=== PATIENT | male | born 1965 | race Caucasian/White ===

== ENCOUNTER 2022-06-29 13:27 | Outpatient (CLI) | payer OTHER ==
[2022-06-29 21:13] VITALS: BP 140/98
--- NOTE | 2022-06-29 21:13 | SLEEP CARE CONSULTATION ---
Information from patient questionnaire entered by Maddi Louise LPN. I have reviewed and concur with the information entered by Maddi Louise LPN. This document represents the service I personally performed and the decisions made by me, Karyn Renteria MD, [facility]. History of Present Illness Service Date and Time: 06/29/2022 1327 Reason for Visit: New patient Chief Complaint: reports: Excessive daytime sleepiness, Fatigue, Other (UPDATE SUPPLIES) Date of Onset: 4 YRS Usual bedtime: 9PM Time it takes to fall asleep: 10-15MINS Snores at night: Yes Observed to quit breathing while asleep: No Sleeps alone due to snoring: Yes Number of times waking at night: 4-5 TIMES Reasons for waking at night: reports: Pain, Bathroom Toss, Turn, or Twitch while sleeping: Yes Recalls having dreams: No Usually gets out of bed at: 6AM Feels refreshed in the morning: No Sleepy or fatigued during the day: Yes Ever fallen asleep while driving: No Takes day naps: Yes Dreams during day naps: No Prior sleep studies: Yes Year and Where: 2016 [facility] [place] Additional HPI information: I had the pleasure of seeing Mr. Thakkar today regarding obstructive sleep apnea- hypopnea. As you know, he is a 57-year-old gentleman who was diagnosed with the sleep-disordered breathing in 2016 at [facility] in [place]. The report is not available. He was prescribed a CPAP device set at 7 14 cmH2O. The [employer]rias Respironics DreamStation autoCPAP came from [facility], but he has been buying supplies online the last few years. He uses every night and all night. He wears a Respironics Amaraview. He finds the treatment very beneficial. - Parasomnia Symptoms Ever been unable to move upon waking from sleep: No Walks in sleep: No Talks in sleep: No Ever acted out dreams in sleep: No Ever felt weak in the knees when startled or emotional: No Bothered by creepy, crawly, restless sensations in legs: No Problems with memory or concentration: Yes CPAP Compliance Data - Data Reviewed with Patient Average duration of nightly device use: 7hrs 57mins Compliance rate %: 88.3 Current pressure setting (cmH2O): 7-14 Average residual AHI: 4.2 Subjective Initial [place] Sleepiness Scale score: 11 (2-28-23) Past Medical History Past Medical History: reports: Hypertension, Claustrophobia, Arthritis, Asthma, GERD Social History The patient's occupation is a [employer]. Patient is and lives in [place]. Have you smoked in the past 12 months: No Alcohol use: Yes Alcohol amount and frequency: 1-3\WEEK SOCIALLY Caffeine use: Yes Caffeine amount and frequency: 4CUPS DAILY Family History Family history of sleep disordered breathing: Yes Family Hx Sleep Apnea: Mother: Snoring, Father: Snoring, Sleep apnea - Treated Allergies and Home Medications Known drug allergies: No Drug allergies reviewed: Yes Home medication list reviewed: Yes Review of Systems Weight gain over past 5 years: 20-30 Cardiovascular: reports: high blood pressure, irregular heart rate or pulse Gastrointestinal: reports: heartburn, diarrhea, abdominal pain Urinary: reports: frequency, urgency Neurological: reports: headaches, gait or balance problems Psychiatric: reports: anxiety, depression Ear/Nose/Throat: reports: tonsillectomy, wisdom teeth removed Endocrine: reports: sluggishness, increased urination Musculoskeletal: denies: joint pain, neck pain, back pain, joint swelling, muscle pain or cramping, mobility problems, other Immunologic: reports: allergies to food or environment Physical Exam Vital signs obtained and entered by: MADDI Wetzel LPN Blood Pressure: 140/98 Cuff size: wrist Heart Rate: 72 O2 Saturation: 98 Height: 6 ft 3 in Weight: 321 lb 12.8 oz Body Mass Index: 40.2 BMI Classification: Morbidly Obese Neck circumference: 18 Mood/affect: Normal HEENT: No craniofacial malformation Nostrils: patent to airflow Turbinates: normal Septum: midline Mouth and throat: narrow oropharynx Soft palate: long Hard palate: normal Uvula: normal Uvula visualization: 25% Mallampati Class III Tongue: normal in size Tonsils: absent bilaterally Chin and jaw: normal size and position Heart: regular rate and rhythm Lungs: clear bilaterally Extremities: no edema or clubbing Neurologic: intact Impression and Plan IMPRESSION: 1. Obstructive Sleep Apnea-Hypopnea Syndrome, as previously diagnosed. The severity is unknown at this time. Narrow oropharynx and obesity are common predisposing factors for obstructive sleep apnea-hypopnea syndrome. The current pressure setting appears effective and comfortable. His mask fits well but he may very well be able to get by with a nasal mask/pillows. Because the CPAP is now older than the useful life of 5 years, I will order the patient a new one and make it an autoCPAP set between 7 and 14 cmH2O. Plan: 1. Prescription made for a new autoCPAP, heated humidifier, and related supplies. 2. Return for follow up after one month of using the CPAP. 3. Try to lose weight. 4. Order a new in-laboratory polysomnography if his old sleep study report cannot be found. Prescriptions: Auto CPAP Follow up with Sleep Care in: 1-2 months Visit Type: In Office Time Spent with Patient (minutes): 15 Provider Statement: I spent 100% of the Face to Face Visit with the patient with greater than 50% spent counseling the patient and coordination of care.
== END 2022-06-29 13:28 | disposition home or self-care (01) ==
LOC: SC 13:27
PROVIDERS: ATTEND Internal Medicine Pulmonary Disease
DX: G47.33 Obstructive sleep apnea (adult) (pediatric) (principal); E66.01 Morbid (severe) obesity due to excess calories; Z68.41 Body mass index [BMI] 40.0-44.9, adult
CPT/HCPCS: 99202; 99212

== ENCOUNTER 2022-07-20 18:44 | Outpatient (CLI) | payer OTHER ==
--- NOTE | 2022-07-20 20:09 | Ultrasound Report ---
PROCEDURE: Testicle INDICATIONS: SCROTAL MASS TECHNIQUE: Real-time scanning was performed of the scrotum and testicles, with image documentation. Color and p ulse Doppler interrogation was performed of both testicles. COMPARISON: None. FINDINGS: Right: Testicle measures 5.2 x 2.7 x 3.6 cm and appears slightly heterogeneous in echotexture. No di screte testicular mass Epididymis is normal in overall size and morphology. There is a small hydroce le. No varicoceles. Overlying scrotal skin is normal in thickness. Left: Testicle measures 5.2 x 2.5 x 3.7 cm and appears heterogeneous in echotexture. There are 2 sma ll cysts within the left testicle measuring up to 0.8 x 0.5 cm and 0.4 x 0.4 cm, with thin septations demonstrated in the larger cyst. Epididymis is normal in overall size and morphology. There are 2 ep ididymal head cysts or spermatoceles, measuring up to 0.4 cm each. There is a small hydrocele. No jeremiah icoceles. Overlying scrotal skin is normal in thickness. Doppler: Color and pulse Doppler demonstrate normal and symmetric arterial flow in both testicles. IMPRESSION: 1. Small cysts demonstrated within the left testicle and epididymis. No discrete solid masses identif ied. 2. Small bilateral hydroceles. Reviewed by: Vinicio Rashid MD on 07/20/2022 8:07 PM PDT Approved by: Vinicio Rashid MD on 07/20/2022 8:07 PM PDT Station ID: [id number]
== END 2022-07-20 18:45 | disposition home or self-care (01) ==
LOC: DI 18:44
PROVIDERS: ATTEND Registered Nurse
DX: N44.2 Benign cyst of testis (principal); N50.3 Cyst of epididymis; N43.3 Hydrocele, unspecified

== ENCOUNTER 2022-08-15 12:06 | Emergency (ER) | payer OTHER ==
--- OUTSIDE RECORDS SUMMARY | 2022-08-15 12:46 | EXTERNAL MEDICAL SUMMARY RPT | Continuity of Care Document ---
:1965 Author Organization [facility] Address [address] [place] [address] Phone Care Team Providers Name Role Phone Unavailable Unavailable Unavailable Nicholas Malone Unavailable Unavailable Allergies and Intolerances date description facility type (no date) No Known Drug Allergies [facility] (unkn own) Encounters No information. Functional Status No information. Immunizations No information. Medications date description facility 2022-07-24 00:00 Methocarbamol [facility] 2022-08-06 00:00 Bicalutamide [facility] 2022-06-19 00:00 Levofloxacin [facility] 2022-07-23 00:00 Ciprofloxacin [facility] 2022-07-23 00:00 Gabapentin [facility] 2022-07-24 00:00 Hydrocodone-Acetaminophen [facility]ret[facility] chintan Problems date description facility 2022-06-22 13:46 [facility] (current) use of antibiotics [facility] 2022-07-16 00:00 Malignant neoplasm of [facility] 2022-07-22 08:48 Malignant neoplasm of 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 2022-07-24 00:00 Low back pain [facility] 2022-07-24 06:36 Malignant neoplasm of [facility] Procedures date description facility 2022-07-22 00:00 Radionuclide bone scan of whole body [facility] 2022-07-24 00:00 CT abdomen pelvis w con [facility] Results/Labs test date author facility value unit interpret ation Result panel 1 (unknown) (no date) (unknown) [facility]) Result panel 2 (unknown) (no date) (unknown) [facility]) Result panel 3 (unknown) (no date) (unknown) [facility]) Result panel 4 (unknown) (no date) (unknown[facility]) Result panel 5 (unknown) (no date) (unknown[facility]) Result panel 6 (unknown) (no date) (unknown[facility]) Result panel 7 (unknown) (no date) (unknown[facility]) Result panel 8 (unknown) (no date) (unknown[facility]) Result panel 9 (unknown) (no date) (unknown[facility]) Result panel 10 (unknown) (no date) (unknown[facility]) Result panel 11 (unknown) (no date) (unknown[facility]) Result panel 12 (unknown) (no date) (unknown[facility]) Result panel 13 (unknown) (no date) (unknown[facility]) Result panel 14 (unknown) (no date) (unknown[facility]) Result panel 15 (unknown) (no date) (unknown[facility]) Result panel 16 (unknown) (no date) (unknown[facility]) Result panel 17 (unknown) (no date) (unknown[facility]) Result panel 18 (unknown) (no date) (unknown[facility]) Result panel 19 (unknown) (no date) (unknown[facility]) Result panel 20 (unknown) (no date) (unknown[facility]) Result panel 21 (unknown) (no date) (unknown[facility]) Result panel 22 (unknown) (no date) (unknown[facility]) Result panel 23 (unknown) (no date) (unknown[facility]) Result panel 24 (unknown) (no date) (unknown[facility]) Result panel 25 (unknown) (no date) (unknown[facility]) Result panel 26 (unknown) (no date) (unknown[facility]) Result panel 27 (unknown) (no date) (unknown[facility]) Result panel 28 (unknown) (no date) (unknown[facility]) Result panel 29 (unknown) (no date) (unknown[facility]) Result panel 30 (unknown) (no date) (unknown[facility]) Result panel 31 (unknown) (no date) (unknown[facility]) Result panel 32 (unknown) (no date) (unknown[facility]) Result panel 33 (unknown) (no date) (unknown[facility]) Result panel 34 (unknown) (no date) (unknown[facility]) Result panel 35 (unknown) (no date) (unknown[facility]) Result panel 36 (unknown) (no date) (unknown[facility]) Result panel 37 (unknown) (no date) (unknown[facility]) Result panel 38 (unknown) (no date) (unknown[facility]) Result panel 39 (unknown) (no date) (unknown[facility]) Result panel 40 (unknown) (no date) (unknown[facility]) Result panel 41 (unknown) (no date) (unknown[facility]) Result panel 42 (unknown) (no date) (unknown[facility]) Result panel 43 (unknown) (no date) (unknown[facility]) Result panel 44 (unknown) (no date) (unknown[facility]) Result panel 45 (unknown) (no date) (unknown[facility]) Result panel 46 (unknown) (no date) (unknown[facility]) Result panel 47 (unknown) (no date) (unknown[facility]) Result panel 48 (unknown) (no date) (unknown[facility]) Result panel 49 (unknown) (no date) (unknown[facility]) Result panel 50 (unknown) (no date) (unknown[facility]) Result panel 51 (unknown) (no date) (unknown[facility]) Result panel 52 (unknown) (no date) (unknown[facility]) Result panel 53 (unknown) (no date) (unknown[facility]) Result panel 54 (unknown) (no date) (unknown[facility]) Result panel 55 (unknown) (no date) (unknown[facility]) Result panel 56 (unknown) (no date) (unknown[facility]) Result panel 57 (unknown) (no date) (unknown[facility]) Result panel 58 (unknown) (no date) (unknown[facility]) Result panel 59 (unknown) (no date) (unknown[facility]) Result panel 60 (unknown) (no date) (unknown[facility]) Result panel 61 (unknown) (no date) (unknown[facility]) Result panel 62 (unknown) (no date) (unknown[facility]) Result panel 63 (unknown) (no date) (unknown[facility]) Result panel 64 (unknown) (no date) (unknown[facility]) Result panel 65 (unknown) (no date) (unknown[facility]) Result panel 66 (unknown) (no date) (unknown[facility]) Result panel 67 (unknown) (no date) (unknown[facility]) Result panel 68 (unknown) (no date) (unknown[facility]) Result panel 69 (unknown) (no date) (unknown[facility]) Result panel 70 (unknown) (no date) (unknown[facility]) Result panel 71 (unknown) (no date) (unknown[facility]) Result panel 72 (unknown) (no date) (unknown[facility]) Result panel 73 (unknown) (no date) (unknown[facility]) Result panel 74 (unknown) (no date) (unknown[facility]) Result panel 75 (unknown) (no date) (unknown[facility]) Result panel 76 (unknown) (no date) (unknown[facility]) Result panel 77 (unknown) (no date) (unknown[facility]) Result panel 78 (unknown) (no date) (unknown[facility]) Result panel 79 (unknown) (no date) (unknown[facility]) Result panel 80 (unknown) (no date) (unknown[facility]) Result panel 81 (unknown) (no date) (unknown[facility]) Result panel 82 (unknown) (no date) (unknown[facility]) Result panel 83 (unknown) (no date) (unknown[facility]) Result panel 84 (unknown) (no date) (unknown[facility]) Result panel 85 (unknown) (no date) (unknown[facility]) Result panel 86 (unknown) (no date) (unknown[facility]) Result panel 87 (unknown) (no date) (unknown[facility]) Result panel 88 (unknown) (no date) (unknown[facility]) Result panel 89 (unknown) (no date) (unknown[facility]) Result panel 90 (unknown) (no date) (unknown[facility]) Result panel 91 (unknown) (no date) (unknown[facility]) Result panel 92 (unknown) (no date) (unknown[facility]) Result panel 93 (unknown) (no date) (unknown[facility]) Result panel 94 (unknown) (no date) (unknown[facility]) Result panel 95 (unknown) (no date) (unknown[facility]) Result panel 96 (unknown) (no date) (unknown[facility]) Result panel 97 (unknown) (no date) (unknown[facility]) Result panel 98 (unknown) (no date) (unknown[facility]) Result panel 99 (unknown) (no date) (unknown[facility]) Result panel 100 (unknown) (no date) (unknown[facility]) Result panel 101 (unknown) (no date) (unknown[facility]) Result panel 102 (unknown) (no date) (unknown[facility]) Result panel 103 (unknown) (no date) (unknown[facility]) Result panel 104 (unknown) (no date) (unknown[facility]) Result panel 105 (unknown) (no date) (unknown[facility]) Result panel 106 (unknown) (no date) (unknown[facility]) Result panel 107 (unknown) (no date) (unknown[facility]) Result panel 108 (unknown) (no date) (unknown[facility]) Result panel 109 (unknown) (no date) (unknown[facility]) Result panel 110 (unknown) (no date) (unknown[facility]) Result panel 111 (unknown) (no date) (unknown[facility]) Result panel 112 (unknown) (no date) (unknown[facility]) Result panel 113 (unknown) (no date) (unknown[facility]) Result panel 114 (unknown) (no date) (unknown[facility]) Result panel 115 (unknown) (no date) (unknown[facility]) Result panel 116 (unknown) (no date) (unknown[facility]) Result panel 117 (unknown) (no date) (unknown[facility]) Result panel 118 (unknown) (no date) (unknown[facility]) Result panel 119 (unknown) (no (unknown) (unknown) (no value) (units (unk nown) date) unknown) (unknown) (no (unknown) (unknown) 06/22/22 (units (unkno wn) date) unknown) (unknown) (no (unknown) (unknown) 56 y/o M (units (unkno wn) date) presents to unknown) clinic for TRUS/Bx (unknown) (no (unknown) (unknown) Abnormal (units (unkno wn) date) prostate by unknown) palpation (unknown) (no (unknown) (unknown) Active asthma (units ( unknown) date) unknown) (unknown) (no (unknown) (unknown) Age/Sex: 56 / M (units (unknown) date) Date of Service: unknown) (unknown) (no (unknown) (unknown) Allergies (units (unkn own) date) unknown) (unknown) (no (unknown) (unknown) [place], [place] (units ( unknown) date) [id number] unknown) (unknown) (no (unknown) (unknown) Assessment + (units (u nknown) date) Plan unknown) (unknown) (no (unknown) (unknown) Attending Dr: (units ( unknown) date) Bryce Page MD unknown) (unknown) (no (unknown) (unknown) Back pain with (units (unknown) date) history of spinal unknown) surgery (unknown) (no (unknown) (unknown) : 1965 (units (unknown) date) Acct:[id number] unknown) (unknown) (no (unknown) (unknown) Dept at (units (unkno wn) date) . unknown) (unknown) (no (unknown) (unknown) Diabetes (units (unkno wn) date) mellitus unknown) (unknown) (no (unknown) (unknown) Discontinued (units (u nknown) date) Reason: By Stop unknown) Date 500 mg PO Q24H 3 days 3 tabs 0RF (unknown) (no (unknown) (unknown) Discontinued (units (u nknown) date) unknown) (unknown) (no (unknown) (unknown) Documented By: (units (unknown) date) Bryce Page MD unknown) 06/22/22 1328 (unknown) (no (unknown) (unknown) Draft (units (unkno wn) date) unknown) (unknown) (no (unknown) (unknown) Family History (units (unknown) date) (Updated 05/11/22 unknown) @ 15:34 by Linsey Veliz RN) (unknown) (no (unknown) (unknown) Father (units (unkno wn) date) Hypertension unknown) (unknown) (no (unknown) (unknown) H/O cervical (units (u nknown) date) spine surgery unknown) (unknown) (no (unknown) (unknown) History of (units (unk nown) date) lumbar surgery unknown) (unknown) (no (unknown) (unknown) Hypertension (units (u nknown) date) unknown) (unknown) (no (unknown) (unknown) Intake Note: (units (u nknown) date) unknown) (unknown) (no (unknown) (unknown) Intake performed (units (unknown) date) by: Tete Kelly unknown) (unknown) (no (unknown) (unknown) Intake (units (unkno wn) date) unknown) (unknown) (no (unknown) (unknown) Intake- Clincial (units (unknown) date) Staff unknown) (unknown) (no (unknown) (unknown) [facility] (units (unknown) date) unknown) (unknown) (no (unknown) (unknown) Loc: [facility] (units (unkno wn) date) unknown) (unknown) (no (unknown) (unknown) Lower urinary (units ( unknown) date) tract symptoms unknown) (unknown) (no (unknown) (unknown) Lumbar (units (unkno wn) date) radiculopathy unknown) (unknown) (no (unknown) (unknown) [id number] (units (unk nown) date) unknown) (unknown) (no (unknown) (unknown) Medical History (units (unknown) date) (Updated 05/12/22 unknown) @ 08:32 by Bryce Page MD) (unknown) (no (unknown) (unknown) Medications: (units (u nknown) date) unknown) (unknown) (no (unknown) (unknown) Mother Cancer (units ( unknown) date) unknown) (unknown) (no (unknown) (unknown) Neck pain with (units (unknown) date) history of unknown) cervical spinal surgery (unknown) (no (unknown) (unknown) No Known Drug (units ( unknown) date) Allergies Allergy unknown) (Verified 05/11/22 15:31) (unknown) (no (unknown) (unknown) PFSH (units (unkno wn) date) unknown) (unknown) (no (unknown) (unknown) Patient: Edlund (units (unknown) date) Leny MR#: unknown) (unknown) (no (unknown) (unknown) 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) (no (unknown) (unknown) Primary (units (unkno wn) date) osteoarthritis of unknown) left knee (unknown) (no (unknown) (unknown) Reason For Visit (units (unknown) date) unknown) (unknown) (no (unknown) (unknown) Signed By: (units (unk nown) date) unknown) (unknown) (no (unknown) (unknown) Smoking Status: (units (unknown) date) Never smoker unknown) (unknown) (no (unknown) (unknown) Social History (units (unknown) date) (Updated 05/11/22 unknown) @ 15:35 by Linsey Veliz RN) (unknown) (no (unknown) (unknown) Start morning (units ( unknown) date) before procedure, unknown) continue day of and day after, until (unknown) (no (unknown) (unknown) Surgical History (units (unknown) date) (Updated 05/11/22 unknown) @ 15:34 by Linsey Veliz RN) (unknown) (no (unknown) (unknown) This note may (units ( unknown) date) have been all or unknown) partially generated using voice recognition (unknown) (no (unknown) (unknown) Tobacco Status (units (unknown) date) unknown) (unknown) (no (unknown) (unknown) Urology Office (units (unknown) date) Visit unknown) (unknown) (no (unknown) (unknown) Visit Reasons: (units (unknown) date) Urgent TRUS/BX unknown) per Dr. Page (unknown) (no (unknown) (unknown) alcohol intake: (units (unknown) date) current unknown) (unknown) (no (unknown) (unknown) caffeine: Yes (units ( unknown) date) unknown) (unknown) (no (unknown) (unknown) have occurred. (units (unknown) date) If there are any unknown) questions, please contact the Medical Records (unknown) (no (unknown) (unknown) household (units (unkn own) date) members: spouse unknown) (unknown) (no (unknown) (unknown) leisure (units (unkno wn) date) activities: unknown) exercise (unknown) (no (unknown) (unknown) levofloxacin (units (u nknown) date) unknown) (unknown) (no (unknown) (unknown) marital status: (units (unknown) date) unknown) (unknown) (no (unknown) (unknown) may occur. (units (unk nown) date) Occasional unknown) wrong-word or 'sound-alike' substitutions may have (unknown) (no (unknown) (unknown) medication is (units ( unknown) date) gone. unknown) (unknown) (no (unknown) (unknown) number of (units (unkn own) date) children: 3 unknown) (unknown) (no (unknown) (unknown) occupational (units (u nknown) date) status: employed unknown) (unknown) (no (unknown) (unknown) occurred due to (units (unknown) date) the inherent unknown) limitations of voice recognition software. Please (unknown) (no (unknown) (unknown) read the note (units ( unknown) date) carefully and unknown) recognize, using context, where these substitutions (unknown) (no (unknown) (unknown) software. (units (unkn own) date) Although every unknown) effort is made to edit content, emt i/99 errors Result panel 120 (unknown) (no (unknown) (unknown) (no value) (units (unk nown) date) unknown) (unknown) (no (unknown) (unknown) 06/22/22 (units (unkno wn) date) unknown) (unknown) (no (unknown) (unknown) 56 y/o M (units (unkno wn) date) presents to unknown) clinic for TRUS/Bx (unknown) (no (unknown) (unknown) 80 mg IM R- (units (un known) date) Upper Glut unknown) [id number] 03/25/23 [id number] [facility] ([facility]) (no (unknown) (unknown) Abnormal (units (unkno wn) date) prostate by unknown) palpation (unknown) (no (unknown) (unknown) Active asthma (units ( unknown) date) unknown) (unknown) (no (unknown) (unknown) Administered by: (units (unknown) date) Tete Kelly LPN unknown) on 06/22/22 13:29 (unknown) (no (unknown) (unknown) Age/Sex: 56 / M (units (unknown) date) Date of Service: unknown) (unknown) (no (unknown) (unknown) Allergies (units (unkn own) date) unknown) (unknown) (no (unknown) (unknown) [place], [place] (units ( unknown) date) [id number] unknown) (unknown) (no (unknown) (unknown) Assessment + (units (u nknown) date) Plan unknown) (unknown) (no (unknown) (unknown) Attending Dr: (units ( unknown) date) Bryce Page MD unknown) (unknown) (no (unknown) (unknown) Back pain with (units (unknown) date) history of spinal unknown) surgery (unknown) (no (unknown) (unknown) : 1965 (units (unknown) date) Acct:[id number] unknown) (unknown) (no (unknown) (unknown) Dept at (units (unkno wn) date) . unknown) (unknown) (no (unknown) (unknown) Diabetes (units (unkno wn) date) mellitus unknown) (unknown) (no (unknown) (unknown) Discontinued (units (u nknown) date) Reason: By Stop unknown) Date 500 mg PO Q24H 3 days 3 tabs 0RF (unknown) (no (unknown) (unknown) Discontinued (units (u nknown) date) unknown) (unknown) (no (unknown) (unknown) Documented By: (units (unknown) date) Bryce Page MD unknown) 06/22/22 1328 (unknown) (no (unknown) (unknown) Dose Route Admin (units (unknown) date) Location Lot unknown) Number Expiration Date NDC (unknown) (no (unknown) (unknown) Draft (units (unkno wn) date) unknown) (unknown) (no (unknown) (unknown) Family History (units (unknown) date) (Updated 05/11/22 unknown) @ 15:34 by Linsey Veliz RN) (unknown) (no (unknown) (unknown) Father (units (unkno wn) date) Hypertension unknown) (unknown) (no (unknown) (unknown) Gentamicin inj (units (unknown) date) 80 mg/2 ml Today unknown) Z79.2 - [facility] (current) use of antibiotics (unknown) (no (unknown) (unknown) H/O cervical (units (u nknown) date) spine surgery unknown) (unknown) (no (unknown) (unknown) History of (units (unk nown) date) lumbar surgery unknown) (unknown) (no (unknown) (unknown) Hypertension (units (u nknown) date) unknown) (unknown) (no (unknown) (unknown) Intake Note: (units (u nknown) date) unknown) (unknown) (no (unknown) (unknown) Intake performed (units (unknown) date) by: Tete Kelly unknown) (unknown) (no (unknown) (unknown) Intake (units (unkno wn) date) unknown) (unknown) (no (unknown) (unknown) Intake- Clincial (units (unknown) date) Staff unknown) (unknown) (no (unknown) (unknown) [facility] (units (unknown) date) unknown) (unknown) (no (unknown) (unknown) Loc: [facility] (units (unkno wn) date) unknown) (unknown) (no (unknown) (unknown) Lower urinary (units ( unknown) date) tract symptoms unknown) (unknown) (no (unknown) (unknown) Lumbar (units (unkno wn) date) radiculopathy unknown) (unknown) (no (unknown) (unknown) [id number] (units (unk nown) date) unknown) (unknown) (no (unknown) (unknown) 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) (unknown) (no (unknown) (unknown) Medical History (units (unknown) date) (Updated 05/12/22 unknown) @ 08:32 by Bryce Page MD) (unknown) (no (unknown) (unknown) Medications: (units (u nknown) date) unknown) (unknown) (no (unknown) (unknown) Mother Cancer (units ( unknown) date) unknown) (unknown) (no (unknown) (unknown) Neck pain with (units (unknown) date) history of unknown) cervical spinal surgery (unknown) (no (unknown) (unknown) No Known Drug (units ( unknown) date) Allergies Allergy unknown) (Verified 05/11/22 15:31) (unknown) (no (unknown) (unknown) Office Meds (units (un known) date) unknown) (unknown) (no (unknown) (unknown) Orders (units (unkno wn) date) unknown) (unknown) (no (unknown) (unknown) Orders: (units (unkno wn) date) unknown) (unknown) (no (unknown) (unknown) PFSH (units (unkno wn) date) unknown) (unknown) (no (unknown) (unknown) Patient: Edlund (units (unknown) date) Leny Hutchison MR#: unknown) (unknown) (no (unknown) (unknown) Performing (units (unk nown) date) Provider: Bryce Malin unknown) MD Camilo (unknown) (no (unknown) (unknown) 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) (no (unknown) (unknown) Primary (units (unkno wn) date) osteoarthritis of unknown) left knee (unknown) (no (unknown) (unknown) Reason For Visit (units (unknown) date) unknown) (unknown) (no (unknown) (unknown) Signed By: (units (unk nown) date) unknown) (unknown) (no (unknown) (unknown) Smoking Status: (units (unknown) date) Never smoker unknown) (unknown) (no (unknown) (unknown) Social History (units (unknown) date) (Updated 05/11/22 unknown) @ 15:35 by Linsey Veliz RN) (unknown) (no (unknown) (unknown) Start morning (units ( unknown) date) before procedure, unknown) continue day of and day after, until (unknown) (no (unknown) (unknown) Surgical History (units (unknown) date) (Updated 05/11/22 unknown) @ 15:34 by Linsey Veliz RN) (unknown) (no (unknown) (unknown) This note may (units ( unknown) date) have been all or unknown) partially generated using voice recognition (unknown) (no (unknown) (unknown) Tobacco Status (units (unknown) date) unknown) (unknown) (no (unknown) (unknown) Urology Office (units (unknown) date) Visit unknown) (unknown) (no (unknown) (unknown) Visit Reasons: (units (unknown) date) Urgent TRUS/BX unknown) per Dr. Page (unknown) (no (unknown) (unknown) alcohol intake: (units (unknown) date) current unknown) (unknown) (no (unknown) (unknown) caffeine: Yes (units ( unknown) date) unknown) (unknown) (no (unknown) (unknown) gentamicin (units (unk nown) date) unknown) (unknown) (no (unknown) (unknown) have occurred. (units (unknown) date) If there are any unknown) questions, please contact the Medical Records (unknown) (no (unknown) (unknown) household (units (unkn own) date) members: spouse unknown) (unknown) (no (unknown) (unknown) leisure (units (unkno wn) date) activities: unknown) exercise (unknown) (no (unknown) (unknown) levofloxacin (units (u nknown) date) unknown) (unknown) (no (unknown) (unknown) marital status: (units (unknown) date) unknown) (unknown) (no (unknown) (unknown) may occur. (units (unk nown) date) Occasional unknown) wrong-word or 'sound-alike' substitutions may have (unknown) (no (unknown) (unknown) medication is (units ( unknown) date) gone. unknown) (unknown) (no (unknown) (unknown) number of (units (unkn own) date) children: 3 unknown) (unknown) (no (unknown) (unknown) occupational (units (u nknown) date) status: employed unknown) (unknown) (no (unknown) (unknown) occurred due to (units (unknown) date) the inherent unknown) limitations of voice recognition software. Please (unknown) (no (unknown) (unknown) read the note (units ( unknown) date) carefully and unknown) recognize, using context, where these substitutions (unknown) (no (unknown) (unknown) software. (units (unkn own) date) Although every unknown) effort is made to edit content, emt i/99 errors Result panel 121 (unknown) (no (unknown) (unknown) (no value) (units (unk nown) date) unknown) (unknown) (no (unknown) (unknown) 05/11/22 [Rx (units (u nknown) date) Confirmed unknown) 06/22/22] (unknown) (no (unknown) (unknown) 06/22/22 (units (unkno wn) date) unknown) (unknown) (no (unknown) (unknown) 06/22/22] (units (unkn own) date) unknown) (unknown) (no (unknown) (unknown) 02/18/22 [Rx (units (u nknown) date) Confirmed unknown) 06/22/22] (unknown) (no (unknown) (unknown) 13:34 (units (unkno wn) date) unknown) (unknown) (no (unknown) (unknown) 56 y/o M (units (unkno wn) date) presents to unknown) clinic for TRUS/Bx (unknown) (no (unknown) (unknown) 80 mg IM R- (units (un known) date) Upper Glut unknown) [id number] 03/25/23 [id number] FRESENIUS KABI (unknown) (no (unknown) (unknown) Abnormal (units (unkno wn) date) prostate by unknown) palpation (unknown) (no (unknown) (unknown) Active asthma (units ( unknown) date) unknown) (unknown) (no (unknown) (unknown) Administered by: (units (unknown) date) Tete Kelly LPN unknown) on 06/22/22 13:29 (unknown) (no (unknown) (unknown) Age/Sex: 56 / M (units (unknown) date) Date of Service: unknown) (unknown) (no (unknown) (unknown) Allergies (units (unkn own) date) unknown) (unknown) (no (unknown) (unknown) [place], [place] (units ( unknown) date) [id number] unknown) (unknown) (no (unknown) (unknown) Assessment + (units (u nknown) date) Plan unknown) (unknown) (no (unknown) (unknown) Attending Dr: (units ( unknown) date) Bryce Page MD unknown) (unknown) (no (unknown) (unknown) BP 142/90 H (units (un known) date) unknown) (unknown) (no (unknown) (unknown) Back pain with (units (unknown) date) history of spinal unknown) surgery (unknown) (no (unknown) (unknown) Blood Pressure (units (unknown) date) Location Lt unknown) brachial (unknown) (no (unknown) (unknown) : 1965 (units (unknown) date) Acct:[id number] unknown) (unknown) (no (unknown) (unknown) Bryce Page MD (units (unknown) date) unknown) (unknown) (no (unknown) (unknown) Dept at (units (unkno wn) date) . unknown) (unknown) (no (unknown) (unknown) Diabetes (units (unkno wn) date) mellitus unknown) (unknown) (no (unknown) (unknown) Discontinued (units (u nknown) date) Reason: By Stop unknown) Date 500 mg PO Q24H 3 tabs 0RF 3 days (unknown) (no (unknown) (unknown) Discontinued (units (u nknown) date) unknown) (unknown) (no (unknown) (unknown) Documented By: (units (unknown) date) Bryce Page MD unknown) 06/22/22 1328 (unknown) (no (unknown) (unknown) Dose Route Admin (units (unknown) date) Location Lot unknown) Number Expiration Date NDC (unknown) (no (unknown) (unknown) Draft (units (unkno wn) date) unknown) (unknown) (no (unknown) (unknown) Family History (units (unknown) date) (Updated 05/11/22 unknown) @ 15:34 by Linsey Veliz RN) (unknown) (no (unknown) (unknown) Father (units (unkno wn) date) Hypertension unknown) (unknown) (no (unknown) (unknown) Gentamicin inj (units (unknown) date) 80 mg/2 ml Today unknown) Z79.2 - [facility] (current) use of antibiotics (unknown) (no (unknown) (unknown) H/O cervical (units (u nknown) date) spine surgery unknown) (unknown) (no (unknown) (unknown) History of (units (unk nown) date) lumbar surgery unknown) (unknown) (no (unknown) (unknown) Hypertension (units (u nknown) date) unknown) (unknown) (no (unknown) (unknown) Intake Note: (units (u nknown) date) unknown) (unknown) (no (unknown) (unknown) Intake performed (units (unknown) date) by: Tete Kelly unknown) (unknown) (no (unknown) (unknown) Intake (units (unkno wn) date) unknown) (unknown) (no (unknown) (unknown) Intake- Clincial (units (unknown) date) Staff unknown) (unknown) (no (unknown) (unknown) [facility] (units (unknown) date) unknown) (unknown) (no (unknown) (unknown) Loc: [facility] (units (unkno wn) date) unknown) (unknown) (no (unknown) (unknown) Lower urinary (units ( unknown) date) tract symptoms unknown) (unknown) (no (unknown) (unknown) Lumbar (units (unkno wn) date) radiculopathy unknown) (unknown) (no (unknown) (unknown) [id number] (units (unk nown) date) unknown) (unknown) (no (unknown) (unknown) 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) (unknown) (no (unknown) (unknown) Medical History (units (unknown) date) (Updated 05/12/22 unknown) @ 08:32 by Bryce Page MD) (unknown) (no (unknown) (unknown) Medications (units (un known) date) unknown) (unknown) (no (unknown) (unknown) Medications: (units (u nknown) date) unknown) (unknown) (no (unknown) (unknown) Mother Cancer (units ( unknown) date) unknown) (unknown) (no (unknown) (unknown) Neck pain with (units (unknown) date) history of unknown) cervical spinal surgery (unknown) (no (unknown) (unknown) No Known Drug (units ( unknown) date) Allergies Allergy unknown) (Verified 06/22/22 13:36) (unknown) (no (unknown) (unknown) Office Meds (units (un known) date) unknown) (unknown) (no (unknown) (unknown) Orders (units (unkno wn) date) unknown) (unknown) (no (unknown) (unknown) Orders: (units (unkno wn) date) unknown) (unknown) (no (unknown) (unknown) Oxygen Delivery (units (unknown) date) Method room air unknown) (unknown) (no (unknown) (unknown) PFSH (units (unkno wn) date) unknown) (unknown) (no (unknown) (unknown) Patient: Edlund (units (unknown) date) Leny Hutchison MR#: unknown) (unknown) (no (unknown) (unknown) Performing (units (unk nown) date) Provider: Bryce Malin unknownIvana Page MD (unknown) (no (unknown) (unknown) Position Sitting (units (unknown) date) unknown) (unknown) (no (unknown) (unknown) 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) (no (unknown) (unknown) Primary (units (unkno wn) date) osteoarthritis of unknown) left knee (unknown) (no (unknown) (unknown) Pulse 96 H (units (unk nown) date) unknown) (unknown) (no (unknown) (unknown) Pulse Oximetry (units (unknown) date) (%) 99 unknown) (unknown) (no (unknown) (unknown) Pulse Source (units (u nknown) date) Monitor unknown) (unknown) (no (unknown) (unknown) Reason For Visit (units (unknown) date) unknown) (unknown) (no (unknown) (unknown) Respiration 16 (units (unknown) date) unknown) (unknown) (no (unknown) (unknown) Signed By: (units (unk nown) date) unknown) (unknown) (no (unknown) (unknown) Smoking Status: (units (unknown) date) Never smoker unknown) (unknown) (no (unknown) (unknown) Social History (units (unknown) date) (Updated 05/11/22 unknown) @ 15:35 by Linsey Veliz RN) (unknown) (no (unknown) (unknown) Start morning (units ( unknown) date) before procedure, unknown) continue day of and day after, until (unknown) (no (unknown) (unknown) Surgical History (units (unknown) date) (Updated 05/11/22 unknown) @ 15:34 by Linsey Veliz RN) (unknown) (no (unknown) (unknown) This note may (units ( unknown) date) have been all or unknown) partially generated using voice recognition (unknown) (no (unknown) (unknown) Tobacco Status (units (unknown) date) unknown) (unknown) (no (unknown) (unknown) Urology Office (units (unknown) date) Visit unknown) (unknown) (no (unknown) (unknown) Visit Reasons: (units (unknown) date) Urgent TRUS/BX unknown) per Dr. Page (unknown) (no (unknown) (unknown) Vitals (units (unkno wn) date) unknown) (unknown) (no (unknown) (unknown) albuterol (units (unkn own) date) sulfate 90 unknown) mcg/actuation aerosol inhaler (Ventolin HFA) 2 puff (unknown) (no (unknown) (unknown) alcohol intake: (units (unknown) date) current unknown) (unknown) (no (unknown) (unknown) caffeine: Yes (units ( unknown) date) unknown) (unknown) (no (unknown) (unknown) celecoxib 400 mg (units (unknown) date) capsule unknown) (Celebrex) 400 mg PO DAILY 02/18/22 [History Confirmed (unknown) (no (unknown) (unknown) esomeprazole (units (u nknown) date) magnesium 40 mg unknown) capsule,delayed release 40 mg PO DAILY #90 caps (unknown) (no (unknown) (unknown) gentamicin (units (unk nown) date) unknown) (unknown) (no (unknown) (unknown) have occurred. (units (unknown) date) If there are any unknown) questions, please contact the Medical Records (unknown) (no (unknown) (unknown) household (units (unkn own) date) members: spouse unknown) (unknown) (no (unknown) (unknown) inhalation Q4-6H (units (unknown) date) PRN Allergic unknown) Reaction 11/21/20 [History Confirmed 06/22/22] (unknown) (no (unknown) (unknown) leisure (units (unkno wn) date) activities: unknown) exercise (unknown) (no (unknown) (unknown) levofloxacin (units (u nknown) date) unknown) (unknown) (no (unknown) (unknown) lisinopril 10 mg (units (unknown) date) tablet 10 mg PO unknown) DAILY #90 tabs 02/18/22 [Rx Confirmed 06/22/22] (unknown) (no (unknown) (unknown) marital status: (units (unknown) date) unknown) (unknown) (no (unknown) (unknown) may occur. (units (unk nown) date) Occasional unknown) wrong-word or 'sound-alike' substitutions may have (unknown) (no (unknown) (unknown) medication is (units ( unknown) date) gone. unknown) (unknown) (no (unknown) (unknown) metoprolol (units (unkn own) date) succinate 25 mg unknown) tablet,extended release 24 hr 25 mg PO DAILY #90 tabs (unknown) (no (unknown) (unknown) number of (units (unkn own) date) children: 3 unknown) (unknown) (no (unknown) (unknown) occupational (units (u nknown) date) status: employed unknown) (unknown) (no (unknown) (unknown) occurred due to (units (unknown) date) the inherent unknown) limitations of voice recognition software. Please (unknown) (no (unknown) (unknown) read the note (units ( unknown) date) carefully and unknown) recognize, using context, where these substitutions (unknown) (no (unknown) (unknown) software. (units (unkn own) date) Although every unknown) effort is made to edit content, emt i/99 errors Result panel 122 (unknown) (no (unknown) (unknown) (no value) (units (unk nown) date) unknown) (unknown) (no (unknown) (unknown) 05/11/22 [Rx (units (u nknown) date) Confirmed unknown) 06/22/22] (unknown) (no (unknown) (unknown) 06/22/22 (units (unkno wn) date) unknown) (unknown) (no (unknown) (unknown) 06/22/22] (units (unkn own) date) unknown) (unknown) (no (unknown) (unknown) 02/18/22 [Rx (units (u nknown) date) Confirmed unknown) 06/22/22] (unknown) (no (unknown) (unknown) 13:34 (units (unkno wn) date) unknown) (unknown) (no (unknown) (unknown) 56 y/o M (units (unkno wn) date) presents to unknown) clinic for TRUS/Bx (unknown) (no (unknown) (unknown) 80 mg IM R- (units (un known) date) Upper Glut unknown) [id number] 03/25/23 [id number] FRESENIUS KABI (unknown) (no (unknown) (unknown) Abnormal (units (unkno wn) date) prostate by unknown) palpation (unknown) (no (unknown) (unknown) Active asthma (units ( unknown) date) unknown) (unknown) (no (unknown) (unknown) Administered by: (units (unknown) date) Tete Kelly LPN unknown) on 06/22/22 13:29 (unknown) (no (unknown) (unknown) Age/Sex: 56 / M (units (unknown) date) Date of Service: unknown) (unknown) (no (unknown) (unknown) Allergies (units (unkn own) date) unknown) (unknown) (no (unknown) (unknown) [place], [place] (units ( unknown) date) [id number] unknown) (unknown) (no (unknown) (unknown) Assessment + (units (u nknown) date) Plan unknown) (unknown) (no (unknown) (unknown) Attending Dr: (units ( unknown) date) Bryce Page MD unknown) (unknown) (no (unknown) (unknown) BP 142/90 H (units (un known) date) unknown) (unknown) (no (unknown) (unknown) Back pain with (units (unknown) date) history of spinal unknown) surgery (unknown) (no (unknown) (unknown) Blood Pressure (units (unknown) date) Location Lt unknown) brachial (unknown) (no (unknown) (unknown) : 1965 (units (unknown) date) Acct:[id number] unknown) (unknown) (no (unknown) (unknown) Dept at (units (unkno wn) date) . unknown) (unknown) (no (unknown) (unknown) Diabetes (units (unkno wn) date) mellitus unknown) (unknown) (no (unknown) (unknown) Discontinued (units (u nknown) date) Reason: By Stop unknown) Date 500 mg PO Q24H 3 days 3 tabs 0RF (unknown) (no (unknown) (unknown) Discontinued (units (u nknown) date) unknown) (unknown) (no (unknown) (unknown) Documented By: (units (unknown) date) Bryce Page MD unknown) 06/22/22 1328 (unknown) (no (unknown) (unknown) Dose Route Admin (units (unknown) date) Location Lot unknown) Number Expiration Date NDC (unknown) (no (unknown) (unknown) Draft (units (unkno wn) date) unknown) (unknown) (no (unknown) (unknown) Family History (units (unknown) date) (Updated 05/11/22 unknown) @ 15:34 by Linsey Veliz RN) (unknown) (no (unknown) (unknown) Father (units (unkno wn) date) Hypertension unknown) (unknown) (no (unknown) (unknown) Gentamicin inj (units (unknown) date) 80 mg/2 ml Today unknown) 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 (unknown) (no (unknown) (unknown) H/O cervical (units (u nknown) date) spine surgery unknown) (unknown) (no (unknown) (unknown) History of (units (unk nown) date) lumbar surgery unknown) (unknown) (no (unknown) (unknown) Hypertension (units (u nknown) date) unknown) (unknown) (no (unknown) (unknown) Intake Note: (units (u nknown) date) unknown) (unknown) (no (unknown) (unknown) Intake performed (units (unknown) date) by: Tete Kelly unknown) (unknown) (no (unknown) (unknown) Intake (units (unkno wn) date) unknown) (unknown) (no (unknown) (unknown) Intake- Clincial (units (unknown) date) Staff unknown) (unknown) (no (unknown) (unknown) [facility] (units (unknown) date) unknown) (unknown) (no (unknown) (unknown) Loc: [facility] (units (unkno wn) date) unknown) (unknown) (no (unknown) (unknown) Lower urinary (units ( unknown) date) tract symptoms unknown) (unknown) (no (unknown) (unknown) Lumbar (units (unkno wn) date) radiculopathy unknown) (unknown) (no (unknown) (unknown) [id number] (units (unk nown) date) unknown) (unknown) (no (unknown) (unknown) 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) (unknown) (no (unknown) (unknown) Medical History (units (unknown) date) (Updated 05/12/22 unknown) @ 08:32 by Bryce Page MD) (unknown) (no (unknown) (unknown) Medications (units (un known) date) unknown) (unknown) (no (unknown) (unknown) Medications: (units (u nknown) date) unknown) (unknown) (no (unknown) (unknown) Mother Cancer (units ( unknown) date) unknown) (unknown) (no (unknown) (unknown) Neck pain with (units (unknown) date) history of unknown) cervical spinal surgery (unknown) (no (unknown) (unknown) No Known Drug (units ( unknown) date) Allergies Allergy unknown) (Verified 06/22/22 13:36) (unknown) (no (unknown) (unknown) Office Meds (units (un known) date) unknown) (unknown) (no (unknown) (unknown) Orders (units (unkno wn) date) unknown) (unknown) (no (unknown) (unknown) Orders: (units (unkno wn) date) unknown) (unknown) (no (unknown) (unknown) Oxygen Delivery (units (unknown) date) Method room air unknown) (unknown) (no (unknown) (unknown) PFSH (units (unkno wn) date) unknown) (unknown) (no (unknown) (unknown) Patient: Edlund (units (unknown) date) JrLeny Keturah MR#: unknown) (unknown) (no (unknown) (unknown) Performing (units (unk nown) date) Provider: Bryce Malin unknown) MD Camilo (unknown) (no (unknown) (unknown) Position Sitting (units (unknown) date) unknown) (unknown) (no (unknown) (unknown) 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) (no (unknown) (unknown) Primary (units (unkno wn) date) osteoarthritis of unknown) left knee (unknown) (no (unknown) (unknown) Pulse 96 H (units (unk nown) date) unknown) (unknown) (no (unknown) (unknown) Pulse Oximetry (units (unknown) date) (%) 99 unknown) (unknown) (no (unknown) (unknown) Pulse Source (units (u nknown) date) Monitor unknown) (unknown) (no (unknown) (unknown) Reason For Visit (units (unknown) date) unknown) (unknown) (no (unknown) (unknown) Respiration 16 (units (unknown) date) unknown) (unknown) (no (unknown) (unknown) Signed By: (units (unk nown) date) unknown) (unknown) (no (unknown) (unknown) Smoking Status: (units (unknown) date) Never smoker unknown) (unknown) (no (unknown) (unknown) Social History (units (unknown) date) (Updated 05/11/22 unknown) @ 15:35 by Linsey Veliz RN) (unknown) (no (unknown) (unknown) Start morning (units ( unknown) date) before procedure, unknown) continue day of and day after, until (unknown) (no (unknown) (unknown) Surgical History (units (unknown) date) (Updated 05/11/22 unknown) @ 15:34 by Linsey Veliz RN) (unknown) (no (unknown) (unknown) This note may (units ( unknown) date) have been all or unknown) partially generated using voice recognition (unknown) (no (unknown) (unknown) Tobacco Status (units (unknown) date) unknown) (unknown) (no (unknown) (unknown) Urology Office (units (unknown) date) Visit unknown) (unknown) (no (unknown) (unknown) Visit Reasons: (units (unknown) date) Urgent TRUS/BX unknown) per Dr. Page (unknown) (no (unknown) (unknown) Vitals (units (unkno wn) date) unknown) (unknown) (no (unknown) (unknown) albuterol (units (unkn own) date) sulfate 90 unknown) mcg/actuation aerosol inhaler (Ventolin HFA) 2 puff (unknown) (no (unknown) (unknown) alcohol intake: (units (unknown) date) current unknown) (unknown) (no (unknown) (unknown) caffeine: Yes (units ( unknown) date) unknown) (unknown) (no (unknown) (unknown) celecoxib 400 mg (units (unknown) date) capsule unknown) (Celebrex) 400 mg PO DAILY 02/18/22 [History Confirmed (unknown) (no (unknown) (unknown) esomeprazole (units (u nknown) date) magnesium 40 mg unknown) capsule,delayed release 40 mg PO DAILY #90 caps (unknown) (no (unknown) (unknown) gentamicin (units (unk nown) date) unknown) (unknown) (no (unknown) (unknown) have occurred. (units (unknown) date) If there are any unknown) questions, please contact the Medical Records (unknown) (no (unknown) (unknown) household (units (unkn own) date) members: spouse unknown) (unknown) (no (unknown) (unknown) inhalation Q4-6H (units (unknown) date) PRN Allergic unknown) Reaction 11/21/20 [History Confirmed 06/22/22] (unknown) (no (unknown) (unknown) leisure (units (unkno wn) date) activities: unknown) exercise (unknown) (no (unknown) (unknown) levofloxacin (units (u nknown) date) unknown) (unknown) (no (unknown) (unknown) lisinopril 10 mg (units (unknown) date) tablet 10 mg PO unknown) DAILY #90 tabs 02/18/22 [Rx Confirmed 06/22/22] (unknown) (no (unknown) (unknown) marital status: (units (unknown) date) unknown) (unknown) (no (unknown) (unknown) may occur. (units (unk nown) date) Occasional unknown) wrong-word or 'sound-alike' substitutions may have (unknown) (no (unknown) (unknown) medication is (units ( unknown) date) gone. unknown) (unknown) (no (unknown) (unknown) metoprolol (units (unkn own) date) succinate 25 mg unknown) tablet,extended release 24 hr 25 mg PO DAILY #90 tabs (unknown) (no (unknown) (unknown) number of (units (unkn own) date) children: 3 unknown) (unknown) (no (unknown) (unknown) occupational (units (u nknown) date) status: employed unknown) (unknown) (no (unknown) (unknown) occurred due to (units (unknown) date) the inherent unknown) limitations of voice recognition software. Please (unknown) (no (unknown) (unknown) read the note (units ( unknown) date) carefully and unknown) recognize, using context, where these substitutions (unknown) (no (unknown) (unknown) software. (units (unkn own) date) Although every unknown) effort is made to edit content, emt i/99 errors Result panel 123 (unknown) (no (unknown) (unknown) (no value) (units (unk nown) date) unknown) (unknown) (no (unknown) (unknown) 05/11/22 [Rx (units (u nknown) date) Confirmed unknown) 06/22/22] (unknown) (no (unknown) (unknown) 06/22/22 (units (unkno wn) date) unknown) (unknown) (no (unknown) (unknown) 06/22/22] (units (unkn own) date) unknown) (unknown) (no (unknown) (unknown) 02/18/22 [Rx (units (u nknown) date) Confirmed unknown) 06/22/22] (unknown) (no (unknown) (unknown) 13:34 (units (unkno wn) date) unknown) (unknown) (no (unknown) (unknown) 56 y/o M (units (unkno wn) date) presents to unknown) clinic for TRUS/Bx (unknown) (no (unknown) (unknown) 80 mg IM R- (units (un known) date) Upper Glut unknown) [id number] 03/25/23 [id number] FRESENIUS KABI (unknown) (no (unknown) (unknown) Abnormal (units (unkno wn) date) prostate by unknown) palpation (unknown) (no (unknown) (unknown) Active asthma (units ( unknown) date) unknown) (unknown) (no (unknown) (unknown) Administered by: (units (unknown) date) Tete Kelly LPN unknown) on 06/22/22 13:29 (unknown) (no (unknown) (unknown) Age/Sex: 56 / M (units (unknown) date) Date of Service: unknown) (unknown) (no (unknown) (unknown) Allergies (units (unkn own) date) unknown) (unknown) (no (unknown) (unknown) [place], [place] (units ( unknown) date) [id number] unknown) (unknown) (no (unknown) (unknown) Assessment + (units (u nknown) date) Plan unknown) (unknown) (no (unknown) (unknown) Attending Dr: (units ( unknown) date) Bryce Page MD unknown) (unknown) (no (unknown) (unknown) BP 142/90 H (units (un known) date) unknown) (unknown) (no (unknown) (unknown) Back pain with (units (unknown) date) history of spinal unknown) surgery (unknown) (no (unknown) (unknown) Blood Pressure (units (unknown) date) Location Lt unknown) brachial (unknown) (no (unknown) (unknown) : 1965 (units (unknown) date) Acct:[id number] unknown) (unknown) (no (unknown) (unknown) Dept at (units (unkno wn) date) . unknown) (unknown) (no (unknown) (unknown) Diabetes (units (unkno wn) date) mellitus unknown) (unknown) (no (unknown) (unknown) Discontinued (units (u nknown) date) Reason: By Stop unknown) Date 500 mg PO Q24H 3 days 3 tabs 0RF (unknown) (no (unknown) (unknown) Discontinued (units (u nknown) date) unknown) (unknown) (no (unknown) (unknown) Documented By: (units (unknown) date) Bryce Page MD unknown) 06/22/22 1328 (unknown) (no (unknown) (unknown) Dose Route Admin (units (unknown) date) Location Lot unknown) Number Expiration Date NDC (unknown) (no (unknown) (unknown) Draft (units (unkno wn) date) unknown) (unknown) (no (unknown) (unknown) Family History (units (unknown) date) (Updated 05/11/22 unknown) @ 15:34 by Linsey Veliz RN) (unknown) (no (unknown) (unknown) Father (units (unkno wn) date) Hypertension unknown) (unknown) (no (unknown) (unknown) Gentamicin inj (units (unknown) date) 80 mg/2 ml Today unknown) Z79.2 - [facility] (current) use of antibiotics (unknown) (no (unknown) (unknown) H/O cervical (units (u nknown) date) spine surgery unknown) (unknown) (no (unknown) (unknown) History of (units (unk nown) date) lumbar surgery unknown) (unknown) (no (unknown) (unknown) Hypertension (units (u nknown) date) unknown) (unknown) (no (unknown) (unknown) Intake Note: (units (u nknown) date) unknown) (unknown) (no (unknown) (unknown) Intake performed (units (unknown) date) by: Tete Kelly unknown) (unknown) (no (unknown) (unknown) Intake (units (unkno wn) date) unknown) (unknown) (no (unknown) (unknown) Intake- Clincial (units (unknown) date) Staff unknown) (unknown) (no (unknown) (unknown) [facility] (units (unknown) date) unknown) (unknown) (no (unknown) (unknown) Loc: [facility] (units (unkno wn) date) unknown) (unknown) (no (unknown) (unknown) Lower urinary (units ( unknown) date) tract symptoms unknown) (unknown) (no (unknown) (unknown) Lumbar (units (unkno wn) date) radiculopathy unknown) (unknown) (no (unknown) (unknown) [id number] (units (unk nown) date) unknown) (unknown) (no (unknown) (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) 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) (unknown) (no (unknown) (unknown) Medical History (units (unknown) date) (Updated 05/12/22 unknown) @ 08:32 by Bryce Page MD) (unknown) (no (unknown) (unknown) Medications (units (un known) date) unknown) (unknown) (no (unknown) (unknown) Medications: (units (u nknown) date) unknown) (unknown) (no (unknown) (unknown) Mother Cancer (units ( unknown) date) unknown) (unknown) (no (unknown) (unknown) Neck pain with (units (unknown) date) history of unknown) cervical spinal surgery (unknown) (no (unknown) (unknown) No Known Drug (units ( unknown) date) Allergies Allergy unknown) (Verified 06/22/22 13:36) (unknown) (no (unknown) (unknown) Office Meds (units (un known) date) unknown) (unknown) (no (unknown) (unknown) Orders (units (unkno wn) date) unknown) (unknown) (no (unknown) (unknown) Orders: (units (unkno wn) date) unknown) (unknown) (no (unknown) (unknown) Oxygen Delivery (units (unknown) date) Method room air unknown) (unknown) (no (unknown) (unknown) PFSH (units (unkno wn) date) unknown) (unknown) (no (unknown) (unknown) Patient: Edlund (units (unknown) date) Leny Hutchison MR#: unknown) (unknown) (no (unknown) (unknown) Performing (units (unk nown) date) Provider: Bryce Malin unknown) MD Camilo (unknown) (no (unknown) (unknown) Position Sitting (units (unknown) date) unknown) (unknown) (no (unknown) (unknown) 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) (no (unknown) (unknown) Primary (units (unkno wn) date) osteoarthritis of unknown) left knee (unknown) (no (unknown) (unknown) Pulse 96 H (units (unk nown) date) unknown) (unknown) (no (unknown) (unknown) Pulse Oximetry (units (unknown) date) (%) 99 unknown) (unknown) (no (unknown) (unknown) Pulse Source (units (u nknown) date) Monitor unknown) (unknown) (no (unknown) (unknown) Reason For Visit (units (unknown) date) unknown) (unknown) (no (unknown) (unknown) Respiration 16 (units (unknown) date) unknown) (unknown) (no (unknown) (unknown) Signed By: (units (unk nown) date) unknown) (unknown) (no (unknown) (unknown) Smoking Status: (units (unknown) date) Never smoker unknown) (unknown) (no (unknown) (unknown) Social History (units (unknown) date) (Updated 05/11/22 unknown) @ 15:35 by Linsey Veliz RN) (unknown) (no (unknown) (unknown) Start morning (units ( unknown) date) before procedure, unknown) continue day of and day after, until (unknown) (no (unknown) (unknown) Surgical History (units (unknown) date) (Updated 05/11/22 unknown) @ 15:34 by Linsey Veliz RN) (unknown) (no (unknown) (unknown) This note may (units ( unknown) date) have been all or unknown) partially generated using voice recognition (unknown) (no (unknown) (unknown) Tobacco Status (units (unknown) date) unknown) (unknown) (no (unknown) (unknown) Urology Office (units (unknown) date) Visit unknown) (unknown) (no (unknown) (unknown) Visit Reasons: (units (unknown) date) Urgent TRUS/BX unknown) per Dr. Page (unknown) (no (unknown) (unknown) Vitals (units (unkno wn) date) unknown) (unknown) (no (unknown) (unknown) albuterol (units (unkn own) date) sulfate 90 unknown) mcg/actuation aerosol inhaler (Ventolin HFA) 2 puff (unknown) (no (unknown) (unknown) alcohol intake: (units (unknown) date) current unknown) (unknown) (no (unknown) (unknown) caffeine: Yes (units ( unknown) date) unknown) (unknown) (no (unknown) (unknown) celecoxib 400 mg (units (unknown) date) capsule unknown) (Celebrex) 400 mg PO DAILY 02/18/22 [History Confirmed (unknown) (no (unknown) (unknown) esomeprazole (units (u nknown) date) magnesium 40 mg unknown) capsule,delayed release 40 mg PO DAILY #90 caps (unknown) (no (unknown) (unknown) gentamicin (units (unk nown) date) unknown) (unknown) (no (unknown) (unknown) have occurred. (units (unknown) date) If there are any unknown) questions, please contact the Medical Records (unknown) (no (unknown) (unknown) household (units (unkn own) date) members: spouse unknown) (unknown) (no (unknown) (unknown) inhalation Q4-6H (units (unknown) date) PRN Allergic unknown) Reaction 11/21/20 [History Confirmed 06/22/22] (unknown) (no (unknown) (unknown) leisure (units (unkno wn) date) activities: unknown) exercise (unknown) (no (unknown) (unknown) levofloxacin (units (u nknown) date) unknown) (unknown) (no (unknown) (unknown) lisinopril 10 mg (units (unknown) date) tablet 10 mg PO unknown) DAILY #90 tabs 02/18/22 [Rx Confirmed 06/22/22] (unknown) (no (unknown) (unknown) marital status: (units (unknown) date) unknown) (unknown) (no (unknown) (unknown) may occur. (units (unk nown) date) Occasional unknown) wrong-word or 'sound-alike' substitutions may have (unknown) (no (unknown) (unknown) medication is (units ( unknown) date) gone. unknown) (unknown) (no (unknown) (unknown) metoprolol (units (unkn own) date) succinate 25 mg unknown) tablet,extended release 24 hr 25 mg PO DAILY #90 tabs (unknown) (no (unknown) (unknown) number of (units (unkn own) date) children: 3 unknown) (unknown) (no (unknown) (unknown) occupational (units (u nknown) date) status: employed unknown) (unknown) (no (unknown) (unknown) occurred due to (units (unknown) date) the inherent unknown) limitations of voice recognition software. Please (unknown) (no (unknown) (unknown) read the note (units ( unknown) date) carefully and unknown) recognize, using context, where these substitutions (unknown) (no (unknown) (unknown) software. (units (unkn own) date) Although every unknown) effort is made to edit content, emt i/99 errors Result panel 124 (unknown) (no (unknown) (unknown) (no value) (units (unk nown) date) unknown) (unknown) (no (unknown) (unknown) 05/11/22 [Rx (units (u nknown) date) Confirmed unknown) 06/22/22] (unknown) (no (unknown) (unknown) 06/22/22 (units (unkno wn) date) unknown) (unknown) (no (unknown) (unknown) 06/22/22] (units (unkn own) date) unknown) (unknown) (no (unknown) (unknown) 02/18/22 [Rx (units (u nknown) date) Confirmed unknown) 06/22/22] (unknown) (no (unknown) (unknown) 13:34 (units (unkno wn) date) unknown) (unknown) (no (unknown) (unknown) 1430: Pt states (units (unknown) date) he did not stop unknown) Celebrex. Provider informed. Per provider, richardson (unknown) (no (unknown) (unknown) 56 y/o M (units (unkno wn) date) presents to unknown) clinic for TRUS/Bx (unknown) (no (unknown) (unknown) 80 mg IM R- (units (un known) date) Upper Glut unknown) [id number] 03/25/23 [id number] [facility] (unknown) (no (unknown) (unknown) Abnormal (units (unkno wn) date) prostate by unknown) palpation (unknown) (no (unknown) (unknown) Active asthma (units ( unknown) date) unknown) (unknown) (no (unknown) (unknown) Administered by: (units (unknown) date) Tete Kelly LPN unknown) on 06/22/22 13:29 (unknown) (no (unknown) (unknown) Age/Sex: 56 / M (units (unknown) date) Date of Service: unknown) (unknown) (no (unknown) (unknown) Allergies (units (unkn own) date) unknown) (unknown) (no (unknown) (unknown) [place] (units ( unknown) date) [id number] unknown) (unknown) (no (unknown) (unknown) Assessment + (units (u nknown) date) Plan unknown) (unknown) (no (unknown) (unknown) Attending Dr: (units ( unknown) date) Bryce Page MD unknown) (unknown) (no (unknown) (unknown) BP 142/90 H (units (un known) date) unknown) (unknown) (no (unknown) (unknown) Back pain with (units (unknown) date) history of spinal unknown) surgery (unknown) (no (unknown) (unknown) Blood Pressure (units (unknown) date) Location Lt unknown) brachial (unknown) (no (unknown) (unknown) : 1965 (units (unknown) date) Acct:[id number] unknown) (unknown) (no (unknown) (unknown) Dept at (units (unkno wn) date) . unknown) (unknown) (no (unknown) (unknown) Diabetes (units (unkno wn) date) mellitus unknown) (unknown) (no (unknown) (unknown) Discontinued (units (u nknown) date) Reason: By Stop unknown) Date 500 mg PO Q24H 3 days 3 tabs 0RF (unknown) (no (unknown) (unknown) Discontinued (units (u nknown) date) unknown) (unknown) (no (unknown) (unknown) Documented By: (units (unknown) date) Bryce Page MD unknown) 06/22/22 1328 (unknown) (no (unknown) (unknown) Dose Route Admin (units (unknown) date) Location Lot unknown) Number Expiration Date NDC (unknown) (no (unknown) (unknown) Draft (units (unkno wn) date) unknown) (unknown) (no (unknown) (unknown) Family History (units (unknown) date) (Updated 05/11/22 unknown) @ 15:34 by Linsey Veliz RN) (unknown) (no (unknown) (unknown) Father (units (unkno wn) date) Hypertension unknown) (unknown) (no (unknown) (unknown) Gentamicin inj (units (unknown) date) 80 mg/2 ml Today unknown) Z79.2 - [facility] (current) use of antibiotics (unknown) (no (unknown) (unknown) H/O cervical (units (u nknown) date) spine surgery unknown) (unknown) (no (unknown) (unknown) History of (units (unk nown) date) lumbar surgery unknown) (unknown) (no (unknown) (unknown) Hypertension (units (u nknown) date) unknown) (unknown) (no (unknown) (unknown) Intake Note: (units (u nknown) date) unknown) (unknown) (no (unknown) (unknown) Intake performed (units (unknown) date) by: Tete Kelly unknown) (unknown) (no (unknown) (unknown) Intake (units (unkno wn) date) unknown) (unknown) (no (unknown) (unknown) Intake- Clincial (units (unknown) date) Staff unknown) (unknown) (no (unknown) (unknown) [facility] (units (unknown) date) unknown) (unknown) (no (unknown) (unknown) Loc: [facility] (units (unkno wn) date) unknown) (unknown) (no (unknown) (unknown) Lower urinary (units ( unknown) date) tract symptoms unknown) (unknown) (no (unknown) (unknown) Lumbar (units (unkno wn) date) radiculopathy unknown) (unknown) (no (unknown) (unknown) [id number] (units (unk nown) date) unknown) (unknown) (no (unknown) (unknown) 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) (unknown) (no (unknown) (unknown) Medical History (units (unknown) date) (Updated 05/12/22 unknown) @ 08:32 by Bryce Page MD) (unknown) (no (unknown) (unknown) Medications (units (un known) date) unknown) (unknown) (no (unknown) (unknown) Medications: (units (u nknown) date) unknown) (unknown) (no (unknown) (unknown) Mother Cancer (units ( unknown) date) unknown) (unknown) (no (unknown) (unknown) Neck pain with (units (unknown) date) history of unknown) cervical spinal surgery (unknown) (no (unknown) (unknown) No Known Drug (units ( unknown) date) Allergies Allergy unknown) (Verified 06/22/22 13:36) (unknown) (no (unknown) (unknown) Office Meds (units (un known) date) unknown) (unknown) (no (unknown) (unknown) Orders (units (unkno wn) date) unknown) (unknown) (no (unknown) (unknown) Orders: (units (unkno wn) date) unknown) (unknown) (no (unknown) (unknown) Oxygen Delivery (units (unknown) date) Method room air unknown) (unknown) (no (unknown) (unknown) PFSH (units (unkno wn) date) unknown) (unknown) (no (unknown) (unknown) Patient: Edlund (units (unknown) date) Leny Hutchison MR#: unknown) (unknown) (no (unknown) (unknown) Performing (units (unk nown) date) Provider: Bryce Malin unknownIvana Page MD (unknown) (no (unknown) (unknown) Position Sitting (units (unknown) date) unknown) (unknown) (no (unknown) (unknown) 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) (no (unknown) (unknown) Primary (units (unkno wn) date) osteoarthritis of unknown) left knee (unknown) (no (unknown) (unknown) Pulse 96 H (units (unk nown) date) unknown) (unknown) (no (unknown) (unknown) Pulse Oximetry (units (unknown) date) (%) 99 unknown) (unknown) (no (unknown) (unknown) Pulse Source (units (u nknown) date) Monitor unknown) (unknown) (no (unknown) (unknown) Reason For Visit (units (unknown) date) unknown) (unknown) (no (unknown) (unknown) Respiration 16 (units (unknown) date) unknown) (unknown) (no (unknown) (unknown) Signed By: (units (unk nown) date) unknown) (unknown) (no (unknown) (unknown) Smoking Status: (units (unknown) date) Never smoker unknown) (unknown) (no (unknown) (unknown) Social History (units (unknown) date) (Updated 05/11/22 unknown) @ 15:35 by Linsey Veliz RN) (unknown) (no (unknown) (unknown) Start morning (units ( unknown) date) before procedure, unknown) continue day of and day after, until (unknown) (no (unknown) (unknown) Surgical History (units (unknown) date) (Updated 05/11/22 unknown) @ 15:34 by Linsey Veliz RN) (unknown) (no (unknown) (unknown) This note may (units ( unknown) date) have been all or unknown) partially generated using voice recognition (unknown) (no (unknown) (unknown) Tobacco Status (units (unknown) date) unknown) (unknown) (no (unknown) (unknown) Urology Office (units (unknown) date) Visit unknown) (unknown) (no (unknown) (unknown) Visit Reasons: (units (unknown) date) Urgent TRUS/BX unknown) per Dr. Page (unknown) (no (unknown) (unknown) Vitals (units (unkno wn) date) unknown) (unknown) (no (unknown) (unknown) albuterol (units (unkn own) date) sulfate 90 unknown) mcg/actuation aerosol inhaler (Ventolin HFA) 2 puff (unknown) (no (unknown) (unknown) alcohol intake: (units (unknown) date) current unknown) (unknown) (no (unknown) (unknown) caffeine: Yes (units ( unknown) date) unknown) (unknown) (no (unknown) (unknown) celecoxib 400 mg (units (unknown) date) capsule unknown) (Celebrex) 400 mg PO DAILY 02/18/22 [History Confirmed (unknown) (no (unknown) (unknown) esomeprazole (units (u nknown) date) magnesium 40 mg unknown) capsule,delayed release 40 mg PO DAILY #90 caps (unknown) (no (unknown) (unknown) gentamicin (units (unk nown) date) unknown) (unknown) (no (unknown) (unknown) have occurred. (units (unknown) date) If there are any unknown) questions, please contact the Medical Records (unknown) (no (unknown) (unknown) household (units (unkn own) date) members: spouse unknown) (unknown) (no (unknown) (unknown) inhalation Q4-6H (units (unknown) date) PRN Allergic unknown) Reaction 11/21/20 [History Confirmed 06/22/22] (unknown) (no (unknown) (unknown) leisure (units (unkno wn) date) activities: unknown) exercise (unknown) (no (unknown) (unknown) levofloxacin (units (u nknown) date) unknown) (unknown) (no (unknown) (unknown) lisinopril 10 mg (units (unknown) date) tablet 10 mg PO unknown) DAILY #90 tabs 02/18/22 [Rx Confirmed 06/22/22] (unknown) (no (unknown) (unknown) marital status: (units (unknown) date) unknown) (unknown) (no (unknown) (unknown) may occur. (units (unk nown) date) Occasional unknown) wrong-word or 'sound-alike' substitutions may have (unknown) (no (unknown) (unknown) medication is (units ( unknown) date) gone. unknown) (unknown) (no (unknown) (unknown) metoprolol (units (unkn own) date) succinate 25 mg unknown) tablet,extended release 24 hr 25 mg PO DAILY #90 tabs (unknown) (no (unknown) (unknown) number of (units (unkn own) date) children: 3 unknown) (unknown) (no (unknown) (unknown) occupational (units (u nknown) date) status: employed unknown) (unknown) (no (unknown) (unknown) occurred due to (units (unknown) date) the inherent unknown) limitations of voice recognition software. Please (unknown) (no (unknown) (unknown) read the note (units ( unknown) date) carefully and unknown) recognize, using context, where these substitutions (unknown) (no (unknown) (unknown) software. (units (unkn own) date) Although every unknown) effort is made to edit content, emt i/99 errors (unknown) (no (unknown) (unknown) to proceed with (units (unknown) date) cystoscopy. unknown) Result panel 125 (unknown) (no (unknown) (unknown) (no value) (units (unk nown) date) unknown) (unknown) (no (unknown) (unknown) 05/11/22 [Rx (units (u nknown) date) Confirmed unknown) 06/22/22] (unknown) (no (unknown) (unknown) 06/22/22 (units (unkno wn) date) unknown) (unknown) (no (unknown) (unknown) 06/22/22] (units (unkn own) date) unknown) (unknown) (no (unknown) (unknown) 02/18/22 [Rx (units (u nknown) date) Confirmed unknown) 06/22/22] (unknown) (no (unknown) (unknown) 13:34 (units (unkno wn) date) unknown) (unknown) (no (unknown) (unknown) 1430: Pt states (units (unknown) date) he did not stop unknown) Celebrex. Provider informed. Per provider, richardson (unknown) (no (unknown) (unknown) 5 lesion on the (units (unknown) date) left side by unknown) prostate MRI. Transrectal ultrasound and needle (unknown) (no (unknown) (unknown) 56 y/o M (units (unkno wn) date) presents to unknown) clinic for TRUS/Bx (unknown) (no (unknown) (unknown) 80 mg IM R- (units (un known) date) Upper Glut unknown) [id number] 03/25/23 [id number] [facility] (unknown) (no (unknown) (unknown) Abnormal (units (unkno wn) date) prostate by unknown) palpation (unknown) (no (unknown) (unknown) Active asthma (units ( unknown) date) unknown) (unknown) (no (unknown) (unknown) Add'l Complaint: (units (unknown) date) unknown) (unknown) (no (unknown) (unknown) Administered by: (units (unknown) date) Tete Kelly LPN unknown) on 06/22/22 13:29 (unknown) (no (unknown) (unknown) Age/Sex: 56 / M (units (unknown) date) Date of Service: unknown) (unknown) (no (unknown) (unknown) Allergies (units (unkn own) date) unknown) (unknown) (no (unknown) (unknown) [place], [place] (units ( unknown) date) [id number] unknown) (unknown) (no (unknown) (unknown) Assessment + (units (u nknown) date) Plan unknown) (unknown) (no (unknown) (unknown) Attending Dr: (units ( unknown) date) Bryce Page MD unknown) (unknown) (no (unknown) (unknown) BP 142/90 H (units (un known) date) unknown) (unknown) (no (unknown) (unknown) Back pain with (units (unknown) date) history of spinal unknown) surgery (unknown) (no (unknown) (unknown) Blood Pressure (units (unknown) date) Location Lt unknown) brachial (unknown) (no (unknown) (unknown) Chief Complaint (units (unknown) date) unknown) (unknown) (no (unknown) (unknown) Chief Complaint: (units (unknown) date) Elevated PSA unknown) (unknown) (no (unknown) (unknown) : 1965 (units (unknown) date) Acct:[id number] unknown) (unknown) (no (unknown) (unknown) Dept at (units (unkno wn) date) . unknown) (unknown) (no (unknown) (unknown) Details: (units (unkno wn) date) unknown) (unknown) (no (unknown) (unknown) Diabetes (units (unkno wn) date) mellitus unknown) (unknown) (no (unknown) (unknown) Discontinued (units (u nknown) date) Reason: By Stop unknown) Date 500 mg PO Q24H 3 days 3 tabs 0RF (unknown) (no (unknown) (unknown) Discontinued (units (u nknown) date) unknown) (unknown) (no (unknown) (unknown) Documented By: (units (unknown) date) Bryce Page MD unknown) 06/22/22 1328 (unknown) (no (unknown) (unknown) Dose Route Admin (units (unknown) date) Location Lot unknown) Number Expiration Date NDC (unknown) (no (unknown) (unknown) Draft (units (unkno wn) date) unknown) (unknown) (no (unknown) (unknown) Family History (units (unknown) date) (Updated 05/11/22 unknown) @ 15:34 by Linsey Veliz RN) (unknown) (no (unknown) (unknown) Father (units (unkno wn) date) Hypertension unknown) (unknown) (no (unknown) (unknown) Gentamicin inj (units (unknown) date) 80 mg/2 ml Today unknown) 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 (unknown) (no (unknown) (unknown) H/O cervical (units (u nknown) date) spine surgery unknown) (unknown) (no (unknown) (unknown) HPI (units (unkno wn) date) unknown) (unknown) (no (unknown) (unknown) History of (units (unk nown) date) lumbar surgery unknown) (unknown) (no (unknown) (unknown) Hypertension (units (u nknown) date) unknown) (unknown) (no (unknown) (unknown) Intake Note: (units (u nknown) date) unknown) (unknown) (no (unknown) (unknown) Intake performed (units (unknown) date) by: Tete Kelly unknown) (unknown) (no (unknown) (unknown) Intake (units (unkno wn) date) unknown) (unknown) (no (unknown) (unknown) Intake- Clincial (units (unknown) date) Staff unknown) (unknown) (no (unknown) (unknown) [facility] (units (unknown) date) unknown) (unknown) (no (unknown) (unknown) Loc: [facility] (units (unkno wn) date) unknown) (unknown) (no (unknown) (unknown) Lower urinary (units ( unknown) date) tract symptoms unknown) (unknown) (no (unknown) (unknown) Lumbar (units (unkno wn) date) radiculopathy unknown) (unknown) (no (unknown) (unknown) [id number] (units (unk nown) date) unknown) (unknown) (no (unknown) (unknown) 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) (unknown) (no (unknown) (unknown) Medical History (units (unknown) date) (Updated 05/12/22 unknown) @ 08:32 by Bryce Page MD) (unknown) (no (unknown) (unknown) Medications (units (un known) date) unknown) (unknown) (no (unknown) (unknown) Medications: (units (u nknown) date) unknown) (unknown) (no (unknown) (unknown) Mother Cancer (units ( unknown) date) unknown) (unknown) (no (unknown) (unknown) Neck pain with (units (unknown) date) history of unknown) cervical spinal surgery (unknown) (no (unknown) (unknown) No Known Drug (units ( unknown) date) Allergies Allergy unknown) (Verified 06/22/22 13:36) (unknown) (no (unknown) (unknown) Office Meds (units (un known) date) unknown) (unknown) (no (unknown) (unknown) Orders (units (unkno wn) date) unknown) (unknown) (no (unknown) (unknown) Orders: (units (unkno wn) date) unknown) (unknown) (no (unknown) (unknown) Oxygen Delivery (units (unknown) date) Method room air unknown) (unknown) (no (unknown) (unknown) PFSH (units (unkno wn) date) unknown) (unknown) (no (unknown) (unknown) PI-RADS 5 lesion (units (unknown) date) left prostate, unknown) lower urinary tract symptoms, morbid obesity, (unknown) (no (unknown) (unknown) Patient: Edlund (units (unknown) date) Leny Hutchison MR#: unknown) (unknown) (no (unknown) (unknown) Performing (units (unk nown) date) Provider: Bryce Malin unknownIvana Page MD (unknown) (no (unknown) (unknown) Position Sitting (units (unknown) date) unknown) (unknown) (no (unknown) (unknown) 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) (no (unknown) (unknown) Primary (units (unkno wn) date) osteoarthritis of unknown) left knee (unknown) (no (unknown) (unknown) Pulse 96 H (units (unk nown) date) unknown) (unknown) (no (unknown) (unknown) Pulse Oximetry (units (unknown) date) (%) 99 unknown) (unknown) (no (unknown) (unknown) Pulse Source (units (u nknown) date) Monitor unknown) (unknown) (no (unknown) (unknown) Reason For Visit (units (unknown) date) unknown) (unknown) (no (unknown) (unknown) Respiration 16 (units (unknown) date) unknown) (unknown) (no (unknown) (unknown) Signed By: (units (unk nown) date) unknown) (unknown) (no (unknown) (unknown) Smoking Status: (units (unknown) date) Never smoker unknown) (unknown) (no (unknown) (unknown) Social History (units (unknown) date) (Updated 05/11/22 unknown) @ 15:35 by Linsey Veliz RN) (unknown) (no (unknown) (unknown) Start morning (units ( unknown) date) before procedure, unknown) continue day of and day after, until (unknown) (no (unknown) (unknown) Surgical History (units (unknown) date) (Updated 05/11/22 unknown) @ 15:34 by Linsey Veliz RN) (unknown) (no (unknown) (unknown) This 56-year-old (units (unknown) date) male comes to unknown) Urology Clinic for transrectal ultrasound needle (unknown) (no (unknown) (unknown) This note may (units ( unknown) date) have been all or unknown) partially generated using voice recognition (unknown) (no (unknown) (unknown) Tobacco Status (units (unknown) date) unknown) (unknown) (no (unknown) (unknown) Urology Office (units (unknown) date) Visit unknown) (unknown) (no (unknown) (unknown) Visit Reasons: (units (unknown) date) Urgent TRUS/BX unknown) per Dr. Page (unknown) (no (unknown) (unknown) Vitals (units (unkno wn) date) unknown) (unknown) (no (unknown) (unknown) abnormal (units (unkno wn) date) prostate by unknown) palpation. (unknown) (no (unknown) (unknown) albuterol (units (unkn own) date) sulfate 90 unknown) mcg/actuation aerosol inhaler (Ventolin HFA) 2 puff (unknown) (no (unknown) (unknown) alcohol intake: (units (unknown) date) current unknown) (unknown) (no (unknown) (unknown) alternatives he (units (unknown) date) comes with his unknown) bowel clear having taken oral antibiotics and (unknown) (no (unknown) (unknown) biopsy of the (units ( unknown) date) prostate related unknown) to his elevated PSA in the findings of a PI-RADS (unknown) (no (unknown) (unknown) biopsy of the (units ( unknown) date) prostate were unknown) discussed with the patient procedure, risks, (unknown) (no (unknown) (unknown) caffeine: Yes (units ( unknown) date) unknown) (unknown) (no (unknown) (unknown) celecoxib 400 mg (units (unknown) date) capsule unknown) (Celebrex) 400 mg PO DAILY 02/18/22 [History Confirmed (unknown) (no (unknown) (unknown) esomeprazole (units (u nknown) date) magnesium 40 mg unknown) capsule,delayed release 40 mg PO DAILY #90 caps (unknown) (no (unknown) (unknown) gentamicin (units (unk nown) date) unknown) (unknown) (no (unknown) (unknown) have occurred. (units (unknown) date) If there are any unknown) questions, please contact the Medical Records (unknown) (no (unknown) (unknown) household (units (unkn own) date) members: spouse unknown) (unknown) (no (unknown) (unknown) inhalation Q4-6H (units (unknown) date) PRN Allergic unknown) Reaction 11/21/20 [History Confirmed 06/22/22] (unknown) (no (unknown) (unknown) leisure (units (unkno wn) date) activities: unknown) exercise (unknown) (no (unknown) (unknown) levofloxacin (units (u nknown) date) unknown) (unknown) (no (unknown) (unknown) lisinopril 10 mg (units (unknown) date) tablet 10 mg PO unknown) DAILY #90 tabs 02/18/22 [Rx Confirmed 06/22/22] (unknown) (no (unknown) (unknown) marital status: (units (unknown) date) unknown) (unknown) (no (unknown) (unknown) may occur. (units (unk nown) date) Occasional unknown) wrong-word or 'sound-alike' substitutions may have (unknown) (no (unknown) (unknown) medication is (units ( unknown) date) gone. unknown) (unknown) (no (unknown) (unknown) metoprolol (units (unkn own) date) succinate 25 mg unknown) tablet,extended release 24 hr 25 mg PO DAILY #90 tabs (unknown) (no (unknown) (unknown) number of (units (unkn own) date) children: 3 unknown) (unknown) (no (unknown) (unknown) occupational (units (u nknown) date) status: employed unknown) (unknown) (no (unknown) (unknown) occurred due to (units (unknown) date) the inherent unknown) limitations of voice recognition software. Please (unknown) (no (unknown) (unknown) read the note (units ( unknown) date) carefully and unknown) recognize, using context, where these substitutions (unknown) (no (unknown) (unknown) received IM (units (un known) date) antibiotics. He unknown) wishes to proceed (unknown) (no (unknown) (unknown) software. (units (unkn own) date) Although every unknown) effort is made to edit content, emt i/99 errors (unknown) (no (unknown) (unknown) to proceed with (units (unknown) date) cystoscopy. unknown) Result panel 126 (unknown) (no (unknown) (unknown) (no value) (units (unk nown) date) unknown) (unknown) (no (unknown) (unknown) 05/11/22 [Rx (units (u nknown) date) Confirmed unknown) 06/22/22] (unknown) (no (unknown) (unknown) 06/22/22 1514 (units ( unknown) date) unknown) (unknown) (no (unknown) (unknown) 06/22/22 (units (unkno wn) date) unknown) (unknown) (no (unknown) (unknown) 06/22/22] (units (unkn own) date) unknown) (unknown) (no (unknown) (unknown) 02/18/22 [Rx (units (u nknown) date) Confirmed unknown) 06/22/22] (unknown) (no (unknown) (unknown) 13:34 (units (unkno wn) date) unknown) (unknown) (no (unknown) (unknown) 1430: Pt states (units (unknown) date) he did not stop unknown) Celebrex. Provider informed. Per provider, richardson (unknown) (no (unknown) (unknown) 5 lesion on the (units (unknown) date) left side by unknown) prostate MRI. Transrectal ultrasound and needle (unknown) (no (unknown) (unknown) 56 y/o M (units (unkno wn) date) presents to unknown) clinic for TRUS/Bx (unknown) (no (unknown) (unknown) 80 mg IM R- (units (un known) date) Upper [place]ut unknown) [id number] 03/25/23 [id number] ([facility] (no (unknown) (unknown) Abnormal (units (unkno wn) date) prostate by unknown) palpation (unknown) (no (unknown) (unknown) Active asthma (units ( unknown) date) unknown) (unknown) (no (unknown) (unknown) Add'l Complaint: (units (unknown) date) unknown) (unknown) (no (unknown) (unknown) Administered by: (units (unknown) date) Tete Kelly LPN unknown) on 06/22/22 13:29 (unknown) (no (unknown) (unknown) Age/Sex: 56 / M (units (unknown) date) Date of Service: unknown) (unknown) (no (unknown) (unknown) Allergies (units (unkn own) date) unknown) (unknown) (no (unknown) (unknown) [place] Melendez (units ( unknown) date) [id number] unknown) (unknown) (no (unknown) (unknown) Anesthetic: 2% (units (unknown) date) viscous lidocaine unknown) per rectum and lidocaine periprostatic block (unknown) (no (unknown) (unknown) Assessment + (units (u nknown) date) Plan unknown) (unknown) (no (unknown) (unknown) Attending Dr: (units ( unknown) date) Bryce Page MD unknown) (unknown) (no (unknown) (unknown) BP 142/90 H (units (un known) date) unknown) (unknown) (no (unknown) (unknown) Back pain with (units (unknown) date) history of spinal unknown) surgery (unknown) (no (unknown) (unknown) Blood Pressure (units (unknown) date) Location Lt unknown) brachial (unknown) (no (unknown) (unknown) Chief Complaint (units (unknown) date) unknown) (unknown) (no (unknown) (unknown) Chief Complaint: (units (unknown) date) Elevated PSA unknown) (unknown) (no (unknown) (unknown) Consent signed: (units (unknown) date) Yes unknown) (unknown) (no (unknown) (unknown) : 1965 (units (unknown) date) Acct:[id number] unknown) (unknown) (no (unknown) (unknown) Dept at (units (unkno wn) date) . unknown) (unknown) (no (unknown) (unknown) Details: (units (unkno wn) date) unknown) (unknown) (no (unknown) (unknown) Diabetes (units (unkno wn) date) mellitus unknown) (unknown) (no (unknown) (unknown) Discontinued (units (u nknown) date) Reason: By Stop unknown) Date 500 mg PO Q24H 3 days 3 tabs 0RF (unknown) (no (unknown) (unknown) Discontinued (units (u nknown) date) unknown) (unknown) (no (unknown) (unknown) Documented By: (units (unknown) date) Bryce Page MD unknown) 06/22/22 1328 (unknown) (no (unknown) (unknown) Dose Route Admin (units (unknown) date) Location Lot unknown) Number Expiration Date NDC (unknown) (no (unknown) (unknown) Family History (units (unknown) date) (Updated 05/11/22 unknown) @ 15:34 by Linsey Veliz RN) (unknown) (no (unknown) (unknown) Father (units (unkno wn) date) Hypertension unknown) (unknown) (no (unknown) (unknown) Findings: (units (unkn own) date) Seminal vesicles unknown) and ampulla vas in normal position configuration (unknown) (no (unknown) (unknown) Gentamicin inj (units (unknown) date) 80 mg/2 ml Today unknown) Z79.2 - [facility] (current) use of antibiotics (unknown) (no (unknown) (unknown) H/O cervical (units (u nknown) date) spine surgery unknown) (unknown) (no (unknown) (unknown) HPI (units (unkno wn) date) unknown) (unknown) (no (unknown) (unknown) History of (units (unk nown) date) lumbar surgery unknown) (unknown) (no (unknown) (unknown) Hypertension (units (u nknown) date) unknown) (unknown) (no (unknown) (unknown) Impression: (units (un known) date) Elevated PSA unknown) PI-RADS 5 lesion left side samples were taken patient (unknown) (no (unknown) (unknown) Indications: (units (u nknown) date) This 56-year-old unknown) male was found to have an elevated PSA went on to (unknown) (no (unknown) (unknown) Informed consent (units (unknown) date) given: Yes unknown) (unknown) (no (unknown) (unknown) Intake Note: (units (u nknown) date) unknown) (unknown) (no (unknown) (unknown) Intake performed (units (unknown) date) by: Tete Kelly unknown) (unknown) (no (unknown) (unknown) Intake (units (unkno wn) date) unknown) (unknown) (no (unknown) (unknown) Intake- Clincial (units (unknown) date) Staff unknown) (unknown) (no (unknown) (unknown) [facility] (units (unknown) date) unknown) (unknown) (no (unknown) (unknown) Loc: [facility] (units (unkno wn) date) unknown) (unknown) (no (unknown) (unknown) Lower urinary (units ( unknown) date) tract symptoms unknown) (unknown) (no (unknown) (unknown) Lumbar (units (unkno wn) date) radiculopathy unknown) (unknown) (no (unknown) (unknown) [id number] (units (unk nown) date) unknown) (unknown) (no (unknown) (unknown) 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) (unknown) (no (unknown) (unknown) Medical History (units (unknown) date) (Updated 05/12/22 unknown) @ 08:32 by Bryce Page MD) (unknown) (no (unknown) (unknown) Medications (units (un known) date) unknown) (unknown) (no (unknown) (unknown) Medications: (units (u nknown) date) unknown) (unknown) (no (unknown) (unknown) Mother Cancer (units ( unknown) date) unknown) (unknown) (no (unknown) (unknown) Neck pain with (units (unknown) date) history of unknown) cervical spinal surgery (unknown) (no (unknown) (unknown) No Known Drug (units ( unknown) date) Allergies Allergy unknown) (Verified 06/22/22 13:36) (unknown) (no (unknown) (unknown) Office Meds (units (un known) date) unknown) (unknown) (no (unknown) (unknown) Office (units (unkno wn) date) Procedures unknown) (unknown) (no (unknown) (unknown) On the right (units (u nknown) date) side 2 each from unknown) each sextant. There was minimal bleeding the (unknown) (no (unknown) (unknown) Orders (units (unkno wn) date) unknown) (unknown) (no (unknown) (unknown) Orders: (units (unkno wn) date) unknown) (unknown) (no (unknown) (unknown) Oxygen Delivery (units (unknown) date) Method room air unknown) (unknown) (no (unknown) (unknown) PFSH (units (unkno wn) date) unknown) (unknown) (no (unknown) (unknown) PI-RADS 5 lesion (units (unknown) date) left prostate, unknown) lower urinary tract symptoms, morbid obesity, (unknown) (no (unknown) (unknown) Patient: Edlund (units (unknown) date) Leny Hutchison MR#: unknown) (unknown) (no (unknown) (unknown) Performing (units (unk nown) date) Provider: Bryce Malin unknown) MD Camilo (unknown) (no (unknown) (unknown) Plan: Patient to (units (unknown) date) return to clinic unknown) with biopsy results. 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) (no (unknown) (unknown) Primary (units (unkno wn) date) osteoarthritis of unknown) left knee (unknown) (no (unknown) (unknown) Procedure Notes: (units (unknown) date) unknown) (unknown) (no (unknown) (unknown) Procedure in (units (u nknown) date) detail: After unknown) informed consent was obtained, the patient was (unknown) (no (unknown) (unknown) Pulse 96 H (units (unk nown) date) unknown) (unknown) (no (unknown) (unknown) Pulse Oximetry (units (unknown) date) (%) 99 unknown) (unknown) (no (unknown) (unknown) Pulse Source (units (u nknown) date) Monitor unknown) (unknown) (no (unknown) (unknown) Reason For Visit (units (unknown) date) unknown) (unknown) (no (unknown) (unknown) Respiration 16 (units (unknown) date) unknown) (unknown) (no (unknown) (unknown) Signed By: (units (unk nown) date) <Electronically unknown) signed by Bryce Page MD> (unknown) (no (unknown) (unknown) Signed (units (unkno wn) date) unknown) (unknown) (no (unknown) (unknown) Smoking Status: (units (unknown) date) Never smoker unknown) (unknown) (no (unknown) (unknown) Social History (units (unknown) date) (Updated 05/11/22 unknown) @ 15:35 by Linsey Veliz RN) (unknown) (no (unknown) (unknown) Start morning (units ( unknown) date) before procedure, unknown) continue day of and day after, until (unknown) (no (unknown) (unknown) Surgeon: Camilo GARZA (units (unknown) date) unknown) (unknown) (no (unknown) (unknown) Surgical History (units (unknown) date) (Updated 05/11/22 unknown) @ 15:34 by Linsey Veliz RN) (unknown) (no (unknown) (unknown) This 56-year-old (units (unknown) date) male comes to unknown) Urology Clinic for transrectal ultrasound needle (unknown) (no (unknown) (unknown) This note may (units ( unknown) date) have been all or unknown) partially generated using voice recognition (unknown) (no (unknown) (unknown) Tobacco Status (units (unknown) date) unknown) (unknown) (no (unknown) (unknown) Transrectal (units (un known) date) ultrasound and unknown) needle biopsy of the prostate: (unknown) (no (unknown) (unknown) Urology Office (units (unknown) date) Visit unknown) (unknown) (no (unknown) (unknown) Visit Reasons: (units (unknown) date) Urgent TRUS/BX unknown) per Dr. Page (unknown) (no (unknown) (unknown) Vitals (units (unkno wn) date) unknown) (unknown) (no (unknown) (unknown) abnormal (units (unkno wn) date) prostate by unknown) palpation. (unknown) (no (unknown) (unknown) abnormality. (units (u nknown) date) Patient did have unknown) few calcifications a few cyst no true hypoechoic (unknown) (no (unknown) (unknown) albuterol (units (unkn own) date) sulfate 90 unknown) mcg/actuation aerosol inhaler (Ventolin HFA) 2 puff (unknown) (no (unknown) (unknown) alcohol intake: (units (unknown) date) current unknown) (unknown) (no (unknown) (unknown) alternatives he (units (unknown) date) comes with his unknown) bowel clear having taken oral antibiotics and (unknown) (no (unknown) (unknown) approximately 52 (units (unknown) date) mL. Biopsies were unknown) then taken in the following fashion. On the (unknown) (no (unknown) (unknown) be made. The (units (u nknown) date) outlined the unknown) prostate showed no gross evidence of extension or (unknown) (no (unknown) (unknown) biopsy of the (units ( unknown) date) prostate related unknown) to his elevated PSA in the findings of a PI-RADS (unknown) (no (unknown) (unknown) biopsy of the (units ( unknown) date) prostate were unknown) discussed with the patient procedure, risks, (unknown) (no (unknown) (unknown) block set up as (units (unknown) date) serial images unknown) were taken through the transverse and longitudinal (unknown) (no (unknown) (unknown) caffeine: Yes (units ( unknown) date) unknown) (unknown) (no (unknown) (unknown) celecoxib 400 mg (units (unknown) date) capsule unknown) (Celebrex) 400 mg PO DAILY 02/18/22 [History Confirmed (unknown) (no (unknown) (unknown) collection (units (unk nown) date) device. Patient's unknown) prostate was then measured and found to be 56.95 (unknown) (no (unknown) (unknown) decubitus (units (unkn own) date) position on the unknown) table. Digital exam was performed in verify the (unknown) (no (unknown) (unknown) echotexture. The (units (unknown) date) bladder is very unknown) minimally feels so definitive come it can not (unknown) (no (unknown) (unknown) esomeprazole (units (u nknown) date) magnesium 40 mg unknown) capsule,delayed release 40 mg PO DAILY #90 caps (unknown) (no (unknown) (unknown) gentamicin (units (unk nown) date) unknown) (unknown) (no (unknown) (unknown) have MRI which (units (unknown) date) shows a unknown) left-sided PI-RADS 5 lesion that appears to involve (unknown) (no (unknown) (unknown) have occurred. (units (unknown) date) If there are any unknown) questions, please contact the Medical Records (unknown) (no (unknown) (unknown) he would taken (units (unknown) date) his oral unknown) antibiotics and received the IM antibiotics and was (unknown) (no (unknown) (unknown) household (units (unkn own) date) members: spouse unknown) (unknown) (no (unknown) (unknown) identified and (units (unknown) date) brought to the unknown) ultrasound suite, once there it was verified that (unknown) (no (unknown) (unknown) inhalation Q4-6H (units (unknown) date) PRN Allergic unknown) Reaction 11/21/20 [History Confirmed 06/22/22] (unknown) (no (unknown) (unknown) left side where (units (unknown) date) the PI-RADS 5 unknown) lesion was 3 samples were taken from each sextant. (unknown) (no (unknown) (unknown) leisure (units (unkno wn) date) activities: unknown) exercise (unknown) (no (unknown) (unknown) lesions. In his (units (unknown) date) was previously unknown) mentioned the prostate was measured at 56.95 mL. (unknown) (no (unknown) (unknown) levofloxacin (units (u nknown) date) unknown) (unknown) (no (unknown) (unknown) lisinopril 10 mg (units (unknown) date) tablet 10 mg PO unknown) DAILY #90 tabs 02/18/22 [Rx Confirmed 06/22/22] (unknown) (no (unknown) (unknown) mL which is (units (unk nown) date) congruent with unknown) the findings at MRI with the prostate was measured at (unknown) (no (unknown) (unknown) marital status: (units (unknown) date) unknown) (unknown) (no (unknown) (unknown) may occur. (units (unk nown) date) Occasional unknown) wrong-word or 'sound-alike' substitutions may have (unknown) (no (unknown) (unknown) medication is (units ( unknown) date) gone. unknown) (unknown) (no (unknown) (unknown) metoprolol (units (unkn own) date) succinate 25 mg unknown) tablet,extended release 24 hr 25 mg PO DAILY #90 tabs (unknown) (no (unknown) (unknown) number of (units (unkn own) date) children: 3 unknown) (unknown) (no (unknown) (unknown) occupational (units (u nknown) date) status: employed unknown) (unknown) (no (unknown) (unknown) occurred due to (units (unknown) date) the inherent unknown) limitations of voice recognition software. Please (unknown) (no (unknown) (unknown) patient (units (unkno wn) date) tolerated the unknown) procedure well and there were no complications. (unknown) (no (unknown) (unknown) perhaps most of (units (unknown) date) the left side of unknown) the prostate. He presents this time for (unknown) (no (unknown) (unknown) periprostatic (units ( unknown) date) block with unknown) lidocaine was performed. Time was allowed for the (unknown) (no (unknown) (unknown) planes of the (units ( unknown) date) prostate with unknown) security representative images collected via the image (unknown) (no (unknown) (unknown) prepared for the (units (unknown) date) procedure. unknown) Patient was then placed in the left lateral (unknown) (no (unknown) (unknown) read the note (units ( unknown) date) carefully and unknown) recognize, using context, where these substitutions (unknown) (no (unknown) (unknown) received IM (units (un known) date) antibiotics. He unknown) wishes to proceed (unknown) (no (unknown) (unknown) rectal vault to (units (unknown) date) be empty of unknown) stool. 2% viscous lidocaine was instilled within (unknown) (no (unknown) (unknown) software. (units (unkn own) date) Although every unknown) effort is made to edit content, emt i/99 errors (unknown) (no (unknown) (unknown) the rectum and (units (unknown) date) time allowed to unknown) pass a ultrasound probe was inserted and (unknown) (no (unknown) (unknown) to proceed with (units (unknown) date) cystoscopy. unknown) (unknown) (no (unknown) (unknown) tolerated well (units (unknown) date) unknown) (unknown) (no (unknown) (unknown) transrectal (units (un known) date) ultrasound and unknown) needle biopsy of the prostate. Result panel 127 (unknown) (no (unknown) (unknown) (no value) (units (unk nown) date) unknown) (unknown) (no (unknown) (unknown) 07/16/22 (units (unkno wn) date) unknown) (unknown) (no (unknown) (unknown) 2week biopsy (units (u nknown) date) results unknown) (unknown) (no (unknown) (unknown) Abnormal (units (unkno wn) date) prostate by unknown) palpation (unknown) (no (unknown) (unknown) Active asthma (units ( unknown) date) unknown) (unknown) (no (unknown) (unknown) Age/Sex: 57 / M (units (unknown) date) Date of Service: unknown) (unknown) (no (unknown) (unknown) Allergies (units (unkn own) date) unknown) (unknown) (no (unknown) (unknown) A[place] Melendez (units ( unknown) date) [id number] unknown) (unknown) (no (unknown) (unknown) Attending Dr: (units ( unknown) date) Bryce Page MD unknown) (unknown) (no (unknown) (unknown) Back pain with (units (unknown) date) history of spinal unknown) surgery (unknown) (no (unknown) (unknown) : 1965 (units (unknown) date) Acct:[id number] unknown) (unknown) (no (unknown) (unknown) Dept at (units (unkno wn) date) . unknown) (unknown) (no (unknown) (unknown) Diabetes (units (unkno wn) date) mellitus unknown) (unknown) (no (unknown) (unknown) Documented By: (units (unknown) date) Bryce Page MD unknown) 07/16/22 1331 (unknown) (no (unknown) (unknown) Draft (units (unkno wn) date) unknown) (unknown) (no (unknown) (unknown) Family History (units (unknown) date) (Updated 05/11/22 unknown) @ 15:34 by Linsey Veliz RN) (unknown) (no (unknown) (unknown) Father (units (unkno wn) date) Hypertension unknown) (unknown) (no (unknown) (unknown) H/O cervical (units (u nknown) date) spine surgery unknown) (unknown) (no (unknown) (unknown) History of (units (unk nown) date) lumbar surgery unknown) (unknown) (no (unknown) (unknown) Hypertension (units (u nknown) date) unknown) (unknown) (no (unknown) (unknown) Intake Note: (units (u nknown) date) unknown) (unknown) (no (unknown) (unknown) Intake (units (unkno wn) date) unknown) (unknown) (no (unknown) (unknown) [facility] (units (unknown) date) unknown) (unknown) (no (unknown) (unknown) Loc: [facility] (units (unkno wn) date) unknown) (unknown) (no (unknown) (unknown) Lower urinary (units ( unknown) date) tract symptoms unknown) (unknown) (no (unknown) (unknown) Lumbar (units (unkno wn) date) radiculopathy unknown) (unknown) (no (unknown) (unknown) [id number] (units (unk nown) date) unknown) (unknown) (no (unknown) (unknown) Medical History (units (unknown) date) (Updated 05/12/22 unknown) @ 08:32 by Bryce Page MD) (unknown) (no (unknown) (unknown) Mother Cancer (units ( unknown) date) unknown) (unknown) (no (unknown) (unknown) Neck pain with (units (unknown) date) history of unknown) cervical spinal surgery (unknown) (no (unknown) (unknown) No Known Drug (units ( unknown) date) Allergies Allergy unknown) (Verified 06/22/22 13:36) (unknown) (no (unknown) (unknown) PFSH (units (unkno wn) date) unknown) (unknown) (no (unknown) (unknown) Patient: Edlund (units (unknown) date) Leny Hutchison MR#: unknown) (unknown) (no (unknown) (unknown) 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) (no (unknown) (unknown) Primary (units (unkno wn) date) osteoarthritis of unknown) left knee (unknown) (no (unknown) (unknown) Reason For Visit (units (unknown) date) unknown) (unknown) (no (unknown) (unknown) Signed By: (units (unk nown) date) unknown) (unknown) (no (unknown) (unknown) Smoking Status: (units (unknown) date) Never smoker unknown) (unknown) (no (unknown) (unknown) Social History (units (unknown) date) (Updated 05/11/22 unknown) @ 15:35 by Linsey Veliz RN) (unknown) (no (unknown) (unknown) Surgical History (units (unknown) date) (Updated 05/11/22 unknown) @ 15:34 by Linsey Veliz RN) (unknown) (no (unknown) (unknown) This note may (units ( unknown) date) have been all or unknown) partially generated using voice recognition (unknown) (no (unknown) (unknown) Tobacco Status (units (unknown) date) unknown) (unknown) (no (unknown) (unknown) Urology Office (units (unknown) date) Visit unknown) (unknown) (no (unknown) (unknown) Visit Reasons: (units (unknown) date) 2wk biopsy unknown) results (unknown) (no (unknown) (unknown) alcohol intake: (units (unknown) date) current unknown) (unknown) (no (unknown) (unknown) caffeine: Yes (units ( unknown) date) unknown) (unknown) (no (unknown) (unknown) have occurred. (units (unknown) date) If there are any unknown) questions, please contact the Medical Records (unknown) (no (unknown) (unknown) household (units (unkn own) date) members: spouse unknown) (unknown) (no (unknown) (unknown) leisure (units (unkno wn) date) activities: unknown) exercise (unknown) (no (unknown) (unknown) marital status: (units (unknown) date) unknown) (unknown) (no (unknown) (unknown) may occur. (units (unk nown) date) Occasional unknown) wrong-word or 'sound-alike' substitutions may have (unknown) (no (unknown) (unknown) number of (units (unkn own) date) children: 3 unknown) (unknown) (no (unknown) (unknown) occupational (units (u nknown) date) status: employed unknown) (unknown) (no (unknown) (unknown) occurred due to (units (unknown) date) the inherent unknown) limitations of voice recognition software. Please (unknown) (no (unknown) (unknown) read the note (units ( unknown) date) carefully and unknown) recognize, using context, where these substitutions (unknown) (no (unknown) (unknown) software. (units (unkn own) date) Although every unknown) effort is made to edit content, emt i/99 errors Result panel 128 (unknown) (no (unknown) (unknown) (no value) (units (unk nown) date) unknown) (unknown) (no (unknown) (unknown) 07/16/22 (units (unkno wn) date) unknown) (unknown) (no (unknown) (unknown) 13:41 (units (unkno wn) date) unknown) (unknown) (no (unknown) (unknown) 2week biopsy (units (u nknown) date) results unknown) (unknown) (no (unknown) (unknown) Abnormal (units (unkno wn) date) prostate by unknown) palpation (unknown) (no (unknown) (unknown) Active asthma (units ( unknown) date) unknown) (unknown) (no (unknown) (unknown) Age/Sex: 57 / M (units (unknown) date) Date of Service: unknown) (unknown) (no (unknown) (unknown) Allergies (units (unkn own) date) unknown) (unknown) (no (unknown) (unknown) AUSTIN Melendez (units ( unknown) date) [id number] unknown) (unknown) (no (unknown) (unknown) Attending Dr: (units ( unknown) date) Bryce Page MD unknown) (unknown) (no (unknown) (unknown) BP 137/83 (units (unkn own) date) unknown) (unknown) (no (unknown) (unknown) Back pain with (units (unknown) date) history of spinal unknown) surgery (unknown) (no (unknown) (unknown) Blood Pressure (units (unknown) date) Location Lt unknown) brachial (unknown) (no (unknown) (unknown) : 1965 (units (unknown) date) Acct:[id number] unknown) (unknown) (no (unknown) (unknown) Dept at (units (unkno wn) date) . unknown) (unknown) (no (unknown) (unknown) Diabetes (units (unkno wn) date) mellitus unknown) (unknown) (no (unknown) (unknown) Documented By: (units (unknown) date) Bryce Page MD unknown) 07/16/22 1331 (unknown) (no (unknown) (unknown) Draft (units (unkno wn) date) unknown) (unknown) (no (unknown) (unknown) Family History (units (unknown) date) (Updated 05/11/22 unknown) @ 15:34 by Linsey Veliz RN) (unknown) (no (unknown) (unknown) Father (units (unkno wn) date) Hypertension unknown) (unknown) (no (unknown) (unknown) H/O cervical (units (u nknown) date) spine surgery unknown) (unknown) (no (unknown) (unknown) History of (units (unk nown) date) lumbar surgery unknown) (unknown) (no (unknown) (unknown) Hypertension (units (u nknown) date) unknown) (unknown) (no (unknown) (unknown) Intake Note: (units (u nknown) date) unknown) (unknown) (no (unknown) (unknown) Intake (units (unkno wn) date) unknown) (unknown) (no (unknown) (unknown) [facility] (units (unknown) date) unknown) (unknown) (no (unknown) (unknown) Loc: [facility] (units (unkno wn) date) unknown) (unknown) (no (unknown) (unknown) Lower urinary (units ( unknown) date) tract symptoms unknown) (unknown) (no (unknown) (unknown) Lumbar (units (unkno wn) date) radiculopathy unknown) (unknown) (no (unknown) (unknown) [id number] (units (unk nown) date) unknown) (unknown) (no (unknown) (unknown) Medical History (units (unknown) date) (Updated 05/12/22 unknown) @ 08:32 by Bryce Page MD) (unknown) (no (unknown) (unknown) Mother Cancer (units ( unknown) date) unknown) (unknown) (no (unknown) (unknown) Neck pain with (units (unknown) date) history of unknown) cervical spinal surgery (unknown) (no (unknown) (unknown) No Known Drug (units ( unknown) date) Allergies Allergy unknown) (Verified 06/22/22 13:36) (unknown) (no (unknown) (unknown) Oxygen Delivery (units (unknown) date) Method room air unknown) (unknown) (no (unknown) (unknown) PFSH (units (unkno wn) date) unknown) (unknown) (no (unknown) (unknown) Patient: Edlund (units (unknown) date) Leny Hutchison MR#: unknown) (unknown) (no (unknown) (unknown) Position Sitting (units (unknown) date) unknown) (unknown) (no (unknown) (unknown) 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) (no (unknown) (unknown) Primary (units (unkno wn) date) osteoarthritis of unknown) left knee (unknown) (no (unknown) (unknown) Pulse 65 (units (unkno wn) date) unknown) (unknown) (no (unknown) (unknown) Pulse Oximetry (units (unknown) date) (%) 99 unknown) (unknown) (no (unknown) (unknown) Reason For Visit (units (unknown) date) unknown) (unknown) (no (unknown) (unknown) Respiration 16 (units (unknown) date) unknown) (unknown) (no (unknown) (unknown) Signed By: (units (unk nown) date) unknown) (unknown) (no (unknown) (unknown) Smoking Status: (units (unknown) date) Never smoker unknown) (unknown) (no (unknown) (unknown) Social History (units (unknown) date) (Updated 05/11/22 unknown) @ 15:35 by Linsey Veliz RN) (unknown) (no (unknown) (unknown) Surgical History (units (unknown) date) (Updated 05/11/22 unknown) @ 15:34 by Linsey Veliz RN) (unknown) (no (unknown) (unknown) This note may (units ( unknown) date) have been all or unknown) partially generated using voice recognition (unknown) (no (unknown) (unknown) Tobacco Status (units (unknown) date) unknown) (unknown) (no (unknown) (unknown) Urology Office (units (unknown) date) Visit unknown) (unknown) (no (unknown) (unknown) Visit Reasons: (units (unknown) date) 2wk biopsy unknown) results (unknown) (no (unknown) (unknown) Vitals (units (unkno wn) date) unknown) (unknown) (no (unknown) (unknown) alcohol intake: (units (unknown) date) current unknown) (unknown) (no (unknown) (unknown) caffeine: Yes (units ( unknown) date) unknown) (unknown) (no (unknown) (unknown) have occurred. (units (unknown) date) If there are any unknown) questions, please contact the Medical Records (unknown) (no (unknown) (unknown) household (units (unkn own) date) members: spouse unknown) (unknown) (no (unknown) (unknown) leisure (units (unkno wn) date) activities: unknown) exercise (unknown) (no (unknown) (unknown) marital status: (units (unknown) date) unknown) (unknown) (no (unknown) (unknown) may occur. (units (unk nown) date) Occasional unknown) wrong-word or 'sound-alike' substitutions may have (unknown) (no (unknown) (unknown) number of (units (unkn own) date) children: 3 unknown) (unknown) (no (unknown) (unknown) occupational (units (u nknown) date) status: employed unknown) (unknown) (no (unknown) (unknown) occurred due to (units (unknown) date) the inherent unknown) limitations of voice recognition software. Please (unknown) (no (unknown) (unknown) read the note (units ( unknown) date) carefully and unknown) recognize, using context, where these substitutions (unknown) (no (unknown) (unknown) software. (units (unkn own) date) Although every unknown) effort is made to edit content, emt i/99 errors Result panel 129 (unknown) (no (unknown) (unknown) (no value) (units (unk nown) date) unknown) (unknown) (no (unknown) (unknown) (1) Prostate (units (u nknown) date) cancer: unknown) (unknown) (no (unknown) (unknown) (2) Lower urinary (units (unknown) date) tract symptoms: unknown) (unknown) (no (unknown) (unknown) (3) Abnormal (units (u nknown) date) prostate by unknown) palpation: (unknown) (no (unknown) (unknown) (4) Elevated PSA, (units (unknown) date) less than 10 unknown) ng/ml: (unknown) (no (unknown) (unknown) 07/16/22 1411 (units ( unknown) date) unknown) (unknown) (no (unknown) (unknown) 03/23/23 (units (unkno wn) date) unknown) (unknown) (no (unknown) (unknown) 13:41 (units (unkno wn) date) unknown) (unknown) (no (unknown) (unknown) 2week biopsy (units (u nknown) date) results unknown) (unknown) (no (unknown) (unknown) Abnormal prostate (units (unknown) date) by palpation unknown) (unknown) (no (unknown) (unknown) Active asthma (units ( unknown) date) unknown) (unknown) (no (unknown) (unknown) Add'l Complaint: (units (unknown) date) unknown) (unknown) (no (unknown) (unknown) Again prostate (units (unknown) date) cancer as above unknown) additional details PSA at time of diagnosis 6.06 (unknown) (no (unknown) (unknown) Age/Sex: 57 / M (units (unknown) date) Date of Service: unknown) (unknown) (no (unknown) (unknown) Allergies (units (unkn own) date) unknown) (unknown) (no (unknown) (unknown) [place], [place] (units ( unknown) date) [id number] unknown) (unknown) (no (unknown) (unknown) Assessment + Plan (units (unknown) date) unknown) (unknown) (no (unknown) (unknown) Assessment and (units (unknown) date) plan: Prostate unknown) cancer new diagnosis (details noted in history of (unknown) (no (unknown) (unknown) Attending Dr: (units ( unknown) date) Bryce Page MD unknown) (unknown) (no (unknown) (unknown) BP 137/83 (units (unkn own) date) unknown) (unknown) (no (unknown) (unknown) Back pain with (units (unknown) date) history of spinal unknown) surgery (unknown) (no (unknown) (unknown) Blood Pressure (units (unknown) date) Location Lt unknown) brachial (unknown) (no (unknown) (unknown) C61 - Malignant (units (unknown) date) neoplasm of unknown) prostate (unknown) (no (unknown) (unknown) CT abdomen pelvis (units (unknown) date) w con 2 Days C61 - unknown) Malignant neoplasm of prostate (unknown) (no (unknown) (unknown) Chief Complaint (units (unknown) date) unknown) (unknown) (no (unknown) (unknown) Chief Complaint: (units (unknown) date) Prostate cancer unknown) (new diagnosis, 4+3=7, T2b, NCCN unfavorable (unknown) (no (unknown) (unknown) Code(s): (units (unkno wn) date) unknown) (unknown) (no (unknown) (unknown) : 1965 (units (unknown) date) Acct:[id number] unknown) (unknown) (no (unknown) (unknown) Dept at (units (unkno wn) date) . unknown) (unknown) (no (unknown) (unknown) Details: (units (unkno wn) date) unknown) (unknown) (no (unknown) (unknown) Diabetes mellitus (units (unknown) date) unknown) (unknown) (no (unknown) (unknown) Documented By: (units (unknown) date) Bryce Page MD unknown) 07/16/22 1331 (unknown) (no (unknown) (unknown) Family History (units (unknown) date) (Updated 05/11/22 unknown) @ 15:34 by Linsey Veliz RN) (unknown) (no (unknown) (unknown) Father (units (unkno wn) date) Hypertension unknown) (unknown) (no (unknown) (unknown) H/O cervical (units (u nknown) date) spine surgery unknown) (unknown) (no (unknown) (unknown) HPI (units (unkno wn) date) unknown) (unknown) (no (unknown) (unknown) History of lumbar (units (unknown) date) surgery unknown) (unknown) (no (unknown) (unknown) Hypertension (units (u nknown) date) unknown) (unknown) (no (unknown) (unknown) Intake Note: (units (u nknown) date) unknown) (unknown) (no (unknown) (unknown) Intake (units (unkno wn) date) unknown) (unknown) (no (unknown) (unknown) [facility] (units (unknown) date) unknown) (unknown) (no (unknown) (unknown) Loc: [facility] (units (unkno wn) date) unknown) (unknown) (no (unknown) (unknown) Lower urinary (units ( unknown) date) tract symptoms unknown) (unknown) (no (unknown) (unknown) Lumbar (units (unkno wn) date) radiculopathy unknown) (unknown) (no (unknown) (unknown) [id number] (units (unk nown) date) unknown) (unknown) (no (unknown) (unknown) Medical History (units (unknown) date) (Updated 07/16/22 unknown) @ 14:08 by Bryce Page MD) (unknown) (no (unknown) (unknown) Mother Cancer (units ( unknown) date) unknown) (unknown) (no (unknown) (unknown) N42.9 - Disorder (units (unknown) date) of prostate, unknown) unspecified (unknown) (no (unknown) (unknown) NM bone scan (units (u nknown) date) whole body 2 Days unknown) C61 - Malignant neoplasm of prostate (unknown) (no (unknown) (unknown) Neck pain with (units (unknown) date) history of unknown) cervical spinal surgery (unknown) (no (unknown) (unknown) No Known Drug (units ( unknown) date) Allergies Allergy unknown) (Verified 06/22/22 13:36) (unknown) (no (unknown) (unknown) Orders (units (unkno wn) date) unknown) (unknown) (no (unknown) (unknown) Orders: (units (unkno wn) date) unknown) (unknown) (no (unknown) (unknown) Oxygen Delivery (units (unknown) date) Method room air unknown) (unknown) (no (unknown) (unknown) PFSH (units (unkno wn) date) unknown) (unknown) (no (unknown) (unknown) Patient: Edlund (units (unknown) date) Leny Hutchison MR#: unknown) (unknown) (no (unknown) (unknown) Plan (units (unkno wn) date) unknown) (unknown) (no (unknown) (unknown) Position Sitting (units (unknown) date) unknown) (unknown) (no (unknown) (unknown) 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 The results were gone over with the (unknown) (no (unknown) (unknown) Prostate cancer (units (unknown) date) unknown) (unknown) (no (unknown) (unknown) Pulse 65 (units (unkno wn) date) unknown) (unknown) (no (unknown) (unknown) Pulse Oximetry (units (unknown) date) (%) 99 unknown) (unknown) (no (unknown) (unknown) R39.9 - (units (unkno wn) date) Unspecified unknown) symptoms and signs involving the genitourinary system (unknown) (no (unknown) (unknown) R97.20 - Elevated (units (unknown) date) prostate specific unknown) antigen [PSA] (unknown) (no (unknown) (unknown) Reason For Visit (units (unknown) date) unknown) (unknown) (no (unknown) (unknown) Respiration 16 (units (unknown) date) unknown) (unknown) (no (unknown) (unknown) Signed By: (units (unk nown) date) <Electronically unknown) signed by Bryce Page MD> (unknown) (no (unknown) (unknown) Signed (units (unkno wn) date) unknown) (unknown) (no (unknown) (unknown) Smoking Status: (units (unknown) date) Never smoker unknown) (unknown) (no (unknown) (unknown) Social History (units (unknown) date) (Updated 05/11/22 unknown) @ 15:35 by Linsey Veliz RN) (unknown) (no (unknown) (unknown) Status: Acute (units ( unknown) date) unknown) (unknown) (no (unknown) (unknown) Surgical History (units (unknown) date) (Updated 05/11/22 unknown) @ 15:34 by Linsey Veliz RN) (unknown) (no (unknown) (unknown) This 57-year-old (units (unknown) date) male comes to unknown) Urology Clinic in follow-up of his transrectal (unknown) (no (unknown) (unknown) This note may (units ( unknown) date) have been all or unknown) partially generated using voice recognition (unknown) (no (unknown) (unknown) Tobacco Status (units (unknown) date) unknown) (unknown) (no (unknown) (unknown) Urology Office (units (unknown) date) Visit unknown) (unknown) (no (unknown) (unknown) Visit Reasons: (units (unknown) date) 2wk biopsy results unknown) (unknown) (no (unknown) (unknown) Vitals (units (unkno wn) date) unknown) (unknown) (no (unknown) (unknown) alcohol intake: (units (unknown) date) current unknown) (unknown) (no (unknown) (unknown) answering their (units (unknown) date) questions. Plan unknown) would be CT scan abdomen and pelvis with (unknown) (no (unknown) (unknown) bone scan then (units (unknown) date) follow-up. unknown) (unknown) (no (unknown) (unknown) caffeine: Yes (units ( unknown) date) unknown) (unknown) (no (unknown) (unknown) characteristics (units (unknown) date) of the cancer as unknown) noted above. It was found on the left side (unknown) (no (unknown) (unknown) contrast (units (unkno wn) date) whole-body bone unknown) scan then return to clinic. Total time today 41 (unknown) (no (unknown) (unknown) have occurred. If (units (unknown) date) there are any unknown) questions, please contact the Medical Records (unknown) (no (unknown) (unknown) household (units (unkn own) date) members: spouse unknown) (unknown) (no (unknown) (unknown) implications, (units ( unknown) date) natural history of unknown) prostate cancer, implications of molecular (unknown) (no (unknown) (unknown) intermediate) (units ( unknown) date) unknown) (unknown) (no (unknown) (unknown) leisure (units (unkno wn) date) activities: unknown) exercise (unknown) (no (unknown) (unknown) marital status: (units (unknown) date) unknown) (unknown) (no (unknown) (unknown) may occur. (units (unk nown) date) Occasional unknown) wrong-word or 'sound-alike' substitutions may have (unknown) (no (unknown) (unknown) minutes (units (unkno wn) date) unknown) (unknown) (no (unknown) (unknown) number of (units (unkn own) date) children: 3 unknown) (unknown) (no (unknown) (unknown) occupational (units (u nknown) date) status: employed unknown) (unknown) (no (unknown) (unknown) occurred due to (units (unknown) date) the inherent unknown) limitations of voice recognition software. Please (unknown) (no (unknown) (unknown) patient and their (units (unknown) date) questions were unknown) answered for he and his . He has the (unknown) (no (unknown) (unknown) present illness). (units (unknown) date) plan CT scan unknown) abdomen and pelvis with contrast in whole-body (unknown) (no (unknown) (unknown) read the note (units ( unknown) date) carefully and unknown) recognize, using context, where these substitutions (unknown) (no (unknown) (unknown) software. (units (unkn own) date) Although every unknown) effort is made to edit content, emt i/99 errors (unknown) (no (unknown) (unknown) studies and the (units (unknown) date) Prolaris score, unknown) further staging, briefly therapeutic options, (unknown) (no (unknown) (unknown) ultrasound needle (units (unknown) date) biopsy of the unknown) prostate. He comes with the biopsy results in (unknown) (no (unknown) (unknown) where he had a (units (unknown) date) PI-RADS 5 lesion unknown) noted on MRI. Covered the results, Result panel 130 (unknown) (no (unknown) (unknown) (no value) (units (unk nown) date) unknown) (unknown) (no (unknown) (unknown) 07/22/22 (units (unkno wn) date) unknown) (unknown) (no (unknown) (unknown) [address] [place] [address] (units (unknown) date) unknown) (unknown) (no (unknown) (unknown) 9:44. (units (unkno wn) date) unknown) (unknown) (no (unknown) (unknown) : [id number] (units (u nknown) date) unknown) (unknown) (no (unknown) (unknown) Accession (units (unkn own) date) Number: unknown) [id number] (unknown) (no (unknown) (unknown) Age/Sex: 57 / M (units (unknown) date) Date of Service: unknown) (unknown) (no (unknown) (unknown) [place] Melendez (units ( unknown) date) [id number] unknown) (unknown) (no (unknown) (unknown) Approved by: (units (u nknown) date) gianna Larios) Arie on 07/22/2022 at 14:36 (unknown) (no (unknown) (unknown) COMPARISON: (units (un known) date) [facility] unknown) [facility], CR, XR KNEE ARTHRITIC SERIES BI, 05/11/2022, (unknown) (no (unknown) (unknown) : 1965 (units (unknown) date) Acct:[id number] unknown) (unknown) (no (unknown) (unknown) Delayed (units (unkno wn) date) whole-body unknown) scintigrams were obtained approximately 3-4 hours after (unknown) (no (unknown) (unknown) Dictated by: (units (u nknown) date) Janae Trejo unknown) Arie on 07/22/2022 at 14:35 (unknown) (no (unknown) (unknown) FINDINGS: (units (unkn own) date) Physiologic unknown) uptake is noted within the kidneys and bladder. There is (unknown) (no (unknown) (unknown) IMPRESSION: (units (un known) date) Multifocal areas unknown) of uptake most suggestive of degenerative change. (unknown) (no (unknown) (unknown) INDICATIONS: New (units (unknown) date) diagnosis unknown) prostate cancer (unknown) (no (unknown) (unknown) [facility] (units (unknown) date) unknown) (unknown) (no (unknown) (unknown) It is (units (unkno wn) date) unknown) (unknown) (no (unknown) (unknown) Loc: [facility] (units (unkn own) date) unknown) (unknown) (no (unknown) (unknown) Nuclear Medicine (units (unknown) date) Report unknown) (unknown) (no (unknown) (unknown) Ordering (units (unkno wn) date) Provider: unknown) Bryce Page MD (unknown) (no (unknown) (unknown) PROCEDURE: NM (units ( unknown) date) BONE SCAN WHOLE unknown) BODY (unknown) (no (unknown) (unknown) Patient: Bijan (units (unknown) date) Leny Hutchison MR# unknown) (unknown) (no (unknown) (unknown) Procedure: NM (units ( unknown) date) bone scan whole unknown) body (unknown) (no (unknown) (unknown) RADIOPHARMACEUTI (units (unknown) date) MAR: 21.3 mCi unknown) Tc-99m MDP IV. (unknown) (no (unknown) (unknown) Signed (units (unkno wn) date) unknown) (unknown) (no (unknown) (unknown) Small focus (units (un known) date) uptake is noted unknown) overlying the lower right jaw possibly related to (unknown) (no (unknown) (unknown) TECHNIQUE: (units (unk nown) date) unknown) (unknown) (no (unknown) (unknown) at L3. (units (unkno wn) date) unknown) (unknown) (no (unknown) (unknown) bones of the (units (u nknown) date) unknown) (unknown) (no (unknown) (unknown) decay. (units (unkno wn) date) unknown) (unknown) (no (unknown) (unknown) degenerative (units (u nknown) date) disease should be unknown) followed up on subsequent exams as a small focus (unknown) (no (unknown) (unknown) dental (units (unkno wn) date) unknown) (unknown) (no (unknown) (unknown) feet. Additional (units (unknown) date) left and right unknown) oblique views of the pelvis were obtained. (unknown) (no (unknown) (unknown) feet. Small (units (un known) date) scattered areas unknown) of uptake are noted within the spine most notably (unknown) (no (unknown) (unknown) injection of (units (u nknown) date) radiotracer. unknown) Anterior and posterior views were acquired from (unknown) (no (unknown) (unknown) intravenous (units (un known) date) unknown) (unknown) (no (unknown) (unknown) metastatic (units (unk nown) date) disease cannot be unknown) excluded. (unknown) (no (unknown) (unknown) noted that areas (units (unknown) date) of uptake within unknown) the spine well-appearing most consistent with (unknown) (no (unknown) (unknown) of (units (unkno wn) date) unknown) (unknown) (no (unknown) (unknown) uptake (units (unkno wn) date) unknown) (unknown) (no (unknown) (unknown) vertex to (units (unkn own) date) unknown) (unknown) (no (unknown) (unknown) within the knee (units (unknown) date) joints unknown) bilaterally, left greater than right as well as small Result panel 131 (unknown) (no (unknown) (unknown) (no value) (units (unk nown) date) unknown) (unknown) (no (unknown) (unknown) 07/23/22 (units (unkno wn) date) unknown) (unknown) (no (unknown) (unknown) Abnormal (units (unkno wn) date) prostate by unknown) palpation (unknown) (no (unknown) (unknown) Active asthma (units ( unknown) date) unknown) (unknown) (no (unknown) (unknown) Age/Sex: 57 / M (units (unknown) date) Date of Service: unknown) (unknown) (no (unknown) (unknown) Allergies (units (unkn own) date) unknown) (unknown) (no (unknown) (unknown) [place] (units ( unknown) date) [id number] unknown) (unknown) (no (unknown) (unknown) Attending Dr: (units ( unknown) date) Bryce Page MD unknown) (unknown) (no (unknown) (unknown) Back pain with (units (unknown) date) history of spinal unknown) surgery (unknown) (no (unknown) (unknown) : 1965 (units (unknown) date) Acct:[id number] unknown) (unknown) (no (unknown) (unknown) Dept at (units (unkno wn) date) . unknown) (unknown) (no (unknown) (unknown) Diabetes (units (unkno wn) date) mellitus unknown) (unknown) (no (unknown) (unknown) Documented By: (units (unknown) date) Bryce Page MD unknown) 07/23/22 1537 (unknown) (no (unknown) (unknown) Draft (units (unkno wn) date) unknown) (unknown) (no (unknown) (unknown) Family History (units (unknown) date) (Updated 05/11/22 unknown) @ 15:34 by Linsey Veliz RN) (unknown) (no (unknown) (unknown) Father (units (unkno wn) date) Hypertension unknown) (unknown) (no (unknown) (unknown) H/O cervical (units (u nknown) date) spine surgery unknown) (unknown) (no (unknown) (unknown) History of (units (unk nown) date) lumbar surgery unknown) (unknown) (no (unknown) (unknown) Hypertension (units (u nknown) date) unknown) (unknown) (no (unknown) (unknown) Intake performed (units (unknown) date) by: unknown) Keri Redmond (unknown) (no (unknown) (unknown) Intake (units (unkno wn) date) unknown) (unknown) (no (unknown) (unknown) Intake- Clincial (units (unknown) date) Staff unknown) (unknown) (no (unknown) (unknown) [facility] (units (unknown) date) unknown) (unknown) (no (unknown) (unknown) Loc: URO (units (unkno wn) date) unknown) (unknown) (no (unknown) (unknown) Lower urinary (units ( unknown) date) tract symptoms unknown) (unknown) (no (unknown) (unknown) Lumbar (units (unkno wn) date) radiculopathy unknown) (unknown) (no (unknown) (unknown) [id number] (units (unk nown) date) unknown) (unknown) (no (unknown) (unknown) Medical History (units (unknown) date) (Updated 07/16/22 unknown) @ 14:08 by Bryce Page MD) (unknown) (no (unknown) (unknown) Mother Cancer (units ( unknown) date) unknown) (unknown) (no (unknown) (unknown) Neck pain with (units (unknown) date) history of unknown) cervical spinal surgery (unknown) (no (unknown) (unknown) No Known Drug (units ( unknown) date) Allergies Allergy unknown) (Verified 06/22/22 13:36) (unknown) (no (unknown) (unknown) PFSH (units (unkno wn) date) unknown) (unknown) (no (unknown) (unknown) Patient: Bijan (units (unknown) date) Leny Hutchison MR#: unknown) (unknown) (no (unknown) (unknown) 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) (no (unknown) (unknown) Primary (units (unkno wn) date) osteoarthritis of unknown) left knee (unknown) (no (unknown) (unknown) Prostate cancer (units (unknown) date) unknown) (unknown) (no (unknown) (unknown) Reason For Visit (units (unknown) date) unknown) (unknown) (no (unknown) (unknown) Signed By: (units (unk nown) date) unknown) (unknown) (no (unknown) (unknown) Smoking Status: (units (unknown) date) Never smoker unknown) (unknown) (no (unknown) (unknown) Social History (units (unknown) date) (Updated 05/11/22 unknown) @ 15:35 by Linsey Veliz RN) (unknown) (no (unknown) (unknown) Surgical History (units (unknown) date) (Updated 05/11/22 unknown) @ 15:34 by Linsey Veliz RN) (unknown) (no (unknown) (unknown) This note may (units ( unknown) date) have been all or unknown) partially generated using voice recognition (unknown) (no (unknown) (unknown) Tobacco Status (units (unknown) date) unknown) (unknown) (no (unknown) (unknown) Urology Office (units (unknown) date) Visit unknown) (unknown) (no (unknown) (unknown) Visit Reasons: (units (unknown) date) CT + Bone scan unknown) review (unknown) (no (unknown) (unknown) alcohol intake: (units (unknown) date) current unknown) (unknown) (no (unknown) (unknown) caffeine: Yes (units ( unknown) date) unknown) (unknown) (no (unknown) (unknown) have occurred. (units (unknown) date) If there are any unknown) questions, please contact the Medical Records (unknown) (no (unknown) (unknown) household (units (unkn own) date) members: spouse unknown) (unknown) (no (unknown) (unknown) leisure (units (unkno wn) date) activities: unknown) exercise (unknown) (no (unknown) (unknown) marital status: (units (unknown) date) unknown) (unknown) (no (unknown) (unknown) may occur. (units (unk nown) date) Occasional unknown) wrong-word or 'sound-alike' substitutions may have (unknown) (no (unknown) (unknown) number of (units (unkn own) date) children: 3 unknown) (unknown) (no (unknown) (unknown) occupational (units (u nknown) date) status: employed unknown) (unknown) (no (unknown) (unknown) occurred due to (units (unknown) date) the inherent unknown) limitations of voice recognition software. Please (unknown) (no (unknown) (unknown) read the note (units ( unknown) date) carefully and unknown) recognize, using context, where these substitutions (unknown) (no (unknown) (unknown) software. (units (unkn own) date) Although every unknown) effort is made to edit content, emt i/99 errors Result panel 132 (unknown) (no (unknown) (unknown) (no value) (units (unk nown) date) unknown) (unknown) (no (unknown) (unknown) 05/11/22 [Rx (units (u nknown) date) Confirmed unknown) 07/23/22] (unknown) (no (unknown) (unknown) 07/23/22 (units (unkno wn) date) unknown) (unknown) (no (unknown) (unknown) 07/23/22] (units (unkn own) date) unknown) (unknown) (no (unknown) (unknown) 02/18/22 [Rx (units (u nknown) date) Confirmed unknown) 07/23/22] (unknown) (no (unknown) (unknown) 15:51 (units (unkno wn) date) unknown) (unknown) (no (unknown) (unknown) Abnormal (units (unkno wn) date) prostate by unknown) palpation (unknown) (no (unknown) (unknown) Accompanied by: (units (unknown) date) : Ayleen unknown) (unknown) (no (unknown) (unknown) Active asthma (units ( unknown) date) unknown) (unknown) (no (unknown) (unknown) Age/Sex: 57 / M (units (unknown) date) Date of Service: unknown) (unknown) (no (unknown) (unknown) Allergies (units (unkn own) date) unknown) (unknown) (no (unknown) (unknown) Al, [place] (units ( unknown) date) [id number] unknown) (unknown) (no (unknown) (unknown) Attending Dr: (units ( unknown) date) Bryce Page MD unknown) (unknown) (no (unknown) (unknown) BP 113/77 (units (unkn own) date) unknown) (unknown) (no (unknown) (unknown) Back pain with (units (unknown) date) history of spinal unknown) surgery (unknown) (no (unknown) (unknown) Blood Pressure (units (unknown) date) Location Rt unknown) brachial (unknown) (no (unknown) (unknown) : 1965 (units (unknown) date) Acct:[id number] unknown) (unknown) (no (unknown) (unknown) Dept at (units (unkno wn) date) . unknown) (unknown) (no (unknown) (unknown) Diabetes (units (unkno wn) date) mellitus unknown) (unknown) (no (unknown) (unknown) Documented By: (units (unknown) date) Bryce Page MD unknown) 07/23/22 1537 (unknown) (no (unknown) (unknown) Draft (units (unkno wn) date) unknown) (unknown) (no (unknown) (unknown) Family History (units (unknown) date) (Updated 05/11/22 unknown) @ 15:34 by Linsey Veliz RN) (unknown) (no (unknown) (unknown) Father (units (unkno wn) date) Hypertension unknown) (unknown) (no (unknown) (unknown) H/O cervical (units (u nknown) date) spine surgery unknown) (unknown) (no (unknown) (unknown) Height 6 ft 3 in (units (unknown) date) unknown) (unknown) (no (unknown) (unknown) History of (units (unk nown) date) lumbar surgery unknown) (unknown) (no (unknown) (unknown) Hypertension (units (u nknown) date) unknown) (unknown) (no (unknown) (unknown) Intake Note: (units (u nknown) date) unknown) (unknown) (no (unknown) (unknown) Intake performed (units (unknown) date) by: unknown) Keri Redmond (unknown) (no (unknown) (unknown) Intake (units (unkno wn) date) unknown) (unknown) (no (unknown) (unknown) Intake- Clincial (units (unknown) date) Staff unknown) (unknown) (no (unknown) (unknown) [facility] (units (unknown) date) unknown) (unknown) (no (unknown) (unknown) Loc: [facility] (units (unkno wn) date) unknown) (unknown) (no (unknown) (unknown) Lower urinary (units ( unknown) date) tract symptoms unknown) (unknown) (no (unknown) (unknown) Lumbar (units (unkno wn) date) radiculopathy unknown) (unknown) (no (unknown) (unknown) [id number] (units (unk nown) date) unknown) (unknown) (no (unknown) (unknown) Medical History (units (unknown) date) (Updated 07/16/22 unknown) @ 14:08 by Bryce Page MD) (unknown) (no (unknown) (unknown) Medications (units (un known) date) unknown) (unknown) (no (unknown) (unknown) Mother Cancer (units ( unknown) date) unknown) (unknown) (no (unknown) (unknown) Neck pain with (units (unknown) date) history of unknown) cervical spinal surgery (unknown) (no (unknown) (unknown) No Known Drug (units ( unknown) date) Allergies Allergy unknown) (Verified 07/23/22 15:45) (unknown) (no (unknown) (unknown) Oxygen Delivery (units (unknown) date) Method room air unknown) (unknown) (no (unknown) (unknown) PFSH (units (unkno wn) date) unknown) (unknown) (no (unknown) (unknown) Patient is here (units (unknown) date) to discuss Bone unknown) Scan results (unknown) (no (unknown) (unknown) Patient: Edlund (units (unknown) date) Leny Hutchison MR#: unknown) (unknown) (no (unknown) (unknown) Position Sitting (units (unknown) date) unknown) (unknown) (no (unknown) (unknown) 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) (no (unknown) (unknown) Primary (units (unkno wn) date) osteoarthritis of unknown) left knee (unknown) (no (unknown) (unknown) Prostate cancer (units (unknown) date) unknown) (unknown) (no (unknown) (unknown) Pulse 78 (units (unkno wn) date) unknown) (unknown) (no (unknown) (unknown) Pulse Oximetry (units (unknown) date) (%) 96 unknown) (unknown) (no (unknown) (unknown) Pulse Source (units (u nknown) date) Monitor unknown) (unknown) (no (unknown) (unknown) Reason For Visit (units (unknown) date) unknown) (unknown) (no (unknown) (unknown) Signed By: (units (unk nown) date) unknown) (unknown) (no (unknown) (unknown) Smoking Status: (units (unknown) date) Never smoker unknown) (unknown) (no (unknown) (unknown) Social History (units (unknown) date) (Updated 05/11/22 unknown) @ 15:35 by Linsey Veliz RN) (unknown) (no (unknown) (unknown) Surgical History (units (unknown) date) (Updated 05/11/22 unknown) @ 15:34 by Linsey Veliz RN) (unknown) (no (unknown) (unknown) This note may (units ( unknown) date) have been all or unknown) partially generated using voice recognition (unknown) (no (unknown) (unknown) Tobacco Status (units (unknown) date) unknown) (unknown) (no (unknown) (unknown) Urology Office (units (unknown) date) Visit unknown) (unknown) (no (unknown) (unknown) Visit Reasons: (units (unknown) date) CT + Bone scan unknown) review (unknown) (no (unknown) (unknown) Vitals (units (unkno wn) date) unknown) (unknown) (no (unknown) (unknown) [History (units (unkno wn) date) Confirmed unknown) 07/23/22] (unknown) (no (unknown) (unknown) albuterol (units (unkn own) date) sulfate 90 unknown) mcg/actuation aerosol inhaler (Ventolin HFA) 2 puff (unknown) (no (unknown) (unknown) alcohol intake: (units (unknown) date) current unknown) (unknown) (no (unknown) (unknown) caffeine: Yes (units ( unknown) date) unknown) (unknown) (no (unknown) (unknown) celecoxib 400 mg (units (unknown) date) capsule unknown) (Celebrex) 400 mg PO DAILY 02/18/22 [History Confirmed (unknown) (no (unknown) (unknown) ciprofloxacin (units ( unknown) date) 500 mg/5 mL oral unknown) suspension (Cipro) 250 mg PO BID 07/23/22 (unknown) (no (unknown) (unknown) esomeprazole (units (u nknown) date) magnesium 40 mg unknown) capsule,delayed release 40 mg PO DAILY #90 caps (unknown) (no (unknown) (unknown) gabapentin 600 (units (unknown) date) mg tablet 600 mg unknown) PO TID 07/23/22 [History Confirmed 07/23/22] (unknown) (no (unknown) (unknown) have occurred. (units (unknown) date) If there are any unknown) questions, please contact the Medical Records (unknown) (no (unknown) (unknown) household (units (unkn own) date) members: spouse unknown) (unknown) (no (unknown) (unknown) inhalation Q4-6H (units (unknown) date) PRN Allergic unknown) Reaction 11/21/20 [History Confirmed 07/23/22] (unknown) (no (unknown) (unknown) leisure (units (unkno wn) date) activities: unknown) exercise (unknown) (no (unknown) (unknown) lisinopril 10 mg (units (unknown) date) tablet 10 mg PO unknown) DAILY #90 tabs 02/18/22 [Rx Confirmed 07/23/22] (unknown) (no (unknown) (unknown) marital status: (units (unknown) date) unknown) (unknown) (no (unknown) (unknown) may occur. (units (unk nown) date) Occasional unknown) wrong-word or 'sound-alike' substitutions may have (unknown) (no (unknown) (unknown) metoprolol (units (unkn own) date) succinate 25 mg unknown) tablet,extended release 24 hr 25 mg PO DAILY #90 tabs (unknown) (no (unknown) (unknown) number of (units (unkn own) date) children: 3 unknown) (unknown) (no (unknown) (unknown) occupational (units (u nknown) date) status: employed unknown) (unknown) (no (unknown) (unknown) occurred due to (units (unknown) date) the inherent unknown) limitations of voice recognition software. Please (unknown) (no (unknown) (unknown) read the note (units ( unknown) date) carefully and unknown) recognize, using context, where these substitutions (unknown) (no (unknown) (unknown) software. (units (unkn own) date) Although every unknown) effort is made to edit content, emt i/99 errors Result panel 133 (unknown) (no (unknown) (unknown) (no value) (units (unk nown) date) unknown) (unknown) (no (unknown) (unknown) 07/24/22 (units (unkno wn) date) unknown) (unknown) (no (unknown) (unknown) [address] [place] [address] (units (unknown) date) unknown) (unknown) (no (unknown) (unknown) : [id number] (units (u nknown) date) unknown) (unknown) (no (unknown) (unknown) ABDOMEN: (units (unkno wn) date) unknown) (unknown) (no (unknown) (unknown) Abdominal Nodes: (units (unknown) date) No retroperitoneal unknown) or mesenteric adenopathy by size criteria. (unknown) (no (unknown) (unknown) Accession Number: (units (unknown) date) [id number] unknown) (unknown) (no (unknown) (unknown) Adrenal Glands: (units (unknown) date) Unremarkable. unknown) (unknown) (no (unknown) (unknown) After the (units (unkn own) date) administration of unknown) oral and IV contrast, axial sections were acquired (unknown) (no (unknown) (unknown) Age/Sex: 57 / M (units (unknown) date) Date of Service: unknown) (unknown) (no (unknown) (unknown) [place] (units ( unknown) date) [id number] unknown) (unknown) (no (unknown) (unknown) Approved by: (units (u nknown) date) Janae Trejo M.D. unknown) on 07/24/2022 at 9:05 (unknown) (no (unknown) (unknown) Biliary ducts: (units (unknown) date) Unremarkable. unknown) (unknown) (no (unknown) (unknown) Bladder: Soft (units ( unknown) date) tissue density is unknown) noted in the posterior inferior bladder (unknown) (no (unknown) (unknown) Bones: Focus of (units (unknown) date) scrotal oasis is unknown) noted in the right sacrum. It is noted there (unknown) (no (unknown) (unknown) COMPARISON: (units (un known) date) [facility], unknown) NM, NM BONE SCAN WHOLE BODY, 07/22/2022, 11:35. (unknown) (no (unknown) (unknown) CT Scan Report (units (unknown) date) unknown) (unknown) (no (unknown) (unknown) : 1965 (units (unknown) date) Acct:[id number] unknown) (unknown) (no (unknown) (unknown) Dictated by: (units (u nknown) date) Janae Trejo M.D. unknown) on 07/24/2022 at 9:02 (unknown) (no (unknown) (unknown) FINDINGS: (units (unkn own) date) unknown) (unknown) (no (unknown) (unknown) Gallbladder: (units (u nknown) date) Unremarkable. unknown) (unknown) (no (unknown) (unknown) Heart: No (units (unkn own) date) significant unknown) findings. (unknown) (no (unknown) (unknown) IMPRESSION: (units (un known) date) unknown) (unknown) (no (unknown) (unknown) INDICATIONS: New (units (unknown) date) diagnosis prostate unknown) cancer (unknown) (no (unknown) (unknown) Image quality: (units (unknown) date) Excellent. unknown) (unknown) (no (unknown) (unknown) Imaging, RG, MRI (units (unknown) date) PELVIS W/WO unknown) CONTRAST, 06/05/2022, 8:04. Outside Film, MR, MR (unknown) (no (unknown) (unknown) [facility] (units (unknown) date) unknown) (unknown) (no (unknown) (unknown) Kidneys and (units (un known) date) Ureters: Simple unknown) left renal cyst. (unknown) (no (unknown) (unknown) LUMBAR (units (unkno wn) date) unknown) (unknown) (no (unknown) (unknown) Liver: (units (unkno wn) date) Unremarkable. unknown) (unknown) (no (unknown) (unknown) Loc: CT (units (unkno wn) date) unknown) (unknown) (no (unknown) (unknown) Lung bases: (units (un known) date) Unremarkable. unknown) (unknown) (no (unknown) (unknown) Miscellaneous: No (units (unknown) date) inguinal hernias unknown) are seen. (unknown) (no (unknown) (unknown) [place] (units (unkn own) date) unknown) (unknown) (no (unknown) (unknown) Ordering (units (unkno wn) date) Provider: unknown) Bryce Page MD (unknown) (no (unknown) (unknown) PELVIS: (units (unkno wn) date) unknown) (unknown) (no (unknown) (unknown) PROCEDURE: CT (units ( unknown) date) ABDOMEN PELVIS W unknown) CON (unknown) (no (unknown) (unknown) Pancreas: (units (unkn own) date) Unremarkable. unknown) (unknown) (no (unknown) (unknown) Patient: Edlund (units (unknown) date) Leny Hutchison MR# unknown) (unknown) (no (unknown) (unknown) Pelvic Nodes: No (units (unknown) date) enlarged lymph unknown) nodes. (unknown) (no (unknown) (unknown) Pelvic Organs: (units (unknown) date) Prostate gland is unknown) enlarged. (unknown) (no (unknown) (unknown) Peritoneum: No (units (unknown) date) abnormal unknown) intraperitoneal fluid. No free air. (unknown) (no (unknown) (unknown) Procedure: CT (units ( unknown) date) abdomen pelvis w unknown) con (unknown) (no (unknown) (unknown) Prominent (units (unkn own) date) unknown) (unknown) (no (unknown) (unknown) Prostate (units (unkno wn) date) enlargement unknown) consistent with given history of prostate malignancy. No (unknown) (no (unknown) (unknown) SPINE WITHOUT (units ( unknown) date) CONTRAST, unknown) 06/04/2022, 15:44. (unknown) (no (unknown) (unknown) Signed (units (unkno wn) date) unknown) (unknown) (no (unknown) (unknown) Spleen: (units (unkno wn) date) Unremarkable. unknown) (unknown) (no (unknown) (unknown) Stomach and (units (un known) date) Bowel: Stomach, unknown) small bowel loops, and colon are nonobstructive. (unknown) (no (unknown) (unknown) TECHNIQUE: (units (unk nown) date) unknown) (unknown) (no (unknown) (unknown) Ventral Wall: No (units (unknown) date) hernia. unknown) (unknown) (no (unknown) (unknown) Vessels: Aorta (units (unknown) date) and inferior vena unknown) cava are normal in size. (unknown) (no (unknown) (unknown) adjustment (units (unk nown) date) unknown) (unknown) (no (unknown) (unknown) appreciable (units (un known) date) uptake in this unknown) region on bone scan. (unknown) (no (unknown) (unknown) becoming (units (unkno wn) date) unknown) (unknown) (no (unknown) (unknown) change. (units (unkno wn) date) unknown) (unknown) (no (unknown) (unknown) colonic (units (unkno wn) date) diverticula are unknown) present most notably in the right colon without (unknown) (no (unknown) (unknown) contiguous with (units (unknown) date) the enlarged unknown) prostate. (unknown) (no (unknown) (unknown) from the (units (unkno wn) date) unknown) (unknown) (no (unknown) (unknown) inflammatory (units (u nknown) date) unknown) (unknown) (no (unknown) (unknown) lung bases to the (units (unknown) date) pubic symphysis. unknown) Coronal and sagittal reformats were (unknown) (no (unknown) (unknown) metastatic (units (unk nown) date) disease. unknown) (unknown) (no (unknown) (unknown) of mA and/or kV (units (unknown) date) according to unknown) patient size. (unknown) (no (unknown) (unknown) performed. For (units (unknown) date) unknown) (unknown) (no (unknown) (unknown) radiation dose (units (unknown) date) reduction, the unknown) following was used: automated exposure control, (unknown) (no (unknown) (unknown) visualized (units (unk nown) date) unknown) (unknown) (no (unknown) (unknown) was no (units (unkno wn) date) unknown) Result panel 134 (unknown) (no (unknown) (unknown) (no value) (units (unk nown) date) unknown) (unknown) (no (unknown) (unknown) 07/24/22 08:51 (units (unknown) date) unknown) (unknown) (no (unknown) (unknown) 07/24/22 (units (unkno wn) date) unknown) (unknown) (no (unknown) (unknown) 08:45 (units (unkno wn) date) unknown) (unknown) (no (unknown) (unknown) 10 mg PO DAILY (units (unknown) date) Qty: 90 3RF unknown) (unknown) (no (unknown) (unknown) 2 puff inhalation (units (unknown) date) Q4-6H PRN (Reason: unknown) Allergic Reaction) (unknown) (no (unknown) (unknown) 25 mg PO DAILY (units (unknown) date) Qty: 90 3RF unknown) (unknown) (no (unknown) (unknown) 250 mg PO BID (units ( unknown) date) unknown) (unknown) (no (unknown) (unknown) 40 mg PO DAILY (units (unknown) date) Qty: 90 3RF unknown) (unknown) (no (unknown) (unknown) 400 mg PO DAILY (units (unknown) date) unknown) (unknown) (no (unknown) (unknown) 600 mg PO TID (units ( unknown) date) unknown) (unknown) (no (unknown) (unknown) ABDOMEN: Soft, (units (unknown) date) nontender. unknown) Normoactive bowel sounds all 4 quadrants. No (unknown) (no (unknown) (unknown) Nicholas Malone MD (units (unknown) date) [Primary Care unknown) Provider] (unknown) (no (unknown) (unknown) Abnormal prostate (units (unknown) date) by palpation unknown) (unknown) (no (unknown) (unknown) Active asthma (units ( unknown) date) unknown) (unknown) (no (unknown) (unknown) Age/Sex: 57 / M (units (unknown) date) unknown) (unknown) (no (unknown) (unknown) Allergies (units (unkn own) date) unknown) (unknown) (no (unknown) (unknown) Allergy/AdvReac (units (unknown) date) Type Severity unknown) Reaction Status Date / Time (unknown) (no (unknown) (unknown) BACK: No midline (units (unknown) date) tenderness, tender unknown) right lumbar area muscle spasm fell (unknown) (no (unknown) (unknown) Back pain with (units (unknown) date) history of spinal unknown) surgery (unknown) (no (unknown) (unknown) Blood Pressure (units (unknown) date) 163/99 H 07/24/22 unknown) 08:45 (unknown) (no (unknown) (unknown) Blood Pressure (units (unknown) date) 163/99 H unknown) (unknown) (no (unknown) (unknown) CARDIOVASCULAR: (units (unknown) date) Regular rate and unknown) rhythm without murmurs, rubs or gallops. (unknown) (no (unknown) (unknown) CBC Auto Diff (units ( unknown) date) [Complete Blood unknown) Count AUTO DIFF] Stat (unknown) (no (unknown) (unknown) CMP (units (unkno wn) date) [Comprehensive unknown) Metabolic Panel] Stat (unknown) (no (unknown) (unknown) Chief Complaint: (units (unknown) date) Back Pain/Injury unknown) (unknown) (no (unknown) (unknown) Course (units (unkno wn) date) unknown) (unknown) (no (unknown) (unknown) : 1965 (units (unknown) date) Acct:[id number] unknown) (unknown) (no (unknown) (unknown) Date of Service: (units (unknown) date) 07/24/22 unknown) (unknown) (no (unknown) (unknown) Departure (units (unkn own) date) unknown) (unknown) (no (unknown) (unknown) Diabetes mellitus (units (unknown) date) unknown) (unknown) (no (unknown) (unknown) Discharge Plan (units (unknown) date) unknown) (unknown) (no (unknown) (unknown) Discontinued (units (u nknown) date) Medications unknown) (unknown) (no (unknown) (unknown) ED Orders (units (unkn own) date) unknown) (unknown) (no (unknown) (unknown) ER Physician: (units ( unknown) date) Karuna Morse unknown) D.O. (unknown) (no (unknown) (unknown) EXTREMITIES: (units (u nknown) date) Normal range of unknown) motion, no clubbing or edema. Neurovascularly (unknown) (no (unknown) (unknown) Emergency Report (units (unknown) date) unknown) (unknown) (no (unknown) (unknown) Exam (units (unkno wn) date) unknown) (unknown) (no (unknown) (unknown) Family History (units (unknown) date) (Reviewed 07/24/22 unknown) @ 09:08 by Karuna Morse DO) (unknown) (no (unknown) (unknown) Father (units (unkno wn) date) Hypertension unknown) (unknown) (no (unknown) (unknown) GENERAL: Alert (units (unknown) date) pleasant unknown) 57-year-old male appears uncomfortable and in no acute (unknown) (no (unknown) (unknown) : No CVA (units (unk nown) date) tenderness unknown) (unknown) (no (unknown) (unknown) General (units (unkno wn) date) unknown) (unknown) (no (unknown) (unknown) H/O cervical (units (u nknown) date) spine surgery unknown) (unknown) (no (unknown) (unknown) HEENT: Head (units (un known) date) atraumatic,EOMI, unknown) pupils reactive, face symmetric, moist mucous (unknown) (no (unknown) (unknown) HPI - Back (units (unk nown) date) Pain/Injury unknown) (unknown) (no (unknown) (unknown) HPI Narrative: (units (unknown) date) unknown) (unknown) (no (unknown) (unknown) History of (units (unk nown) date) Present Illness unknown) (unknown) (no (unknown) (unknown) History of lumbar (units (unknown) date) surgery unknown) (unknown) (no (unknown) (unknown) Home Medications (units (unknown) date) unknown) (unknown) (no (unknown) (unknown) Hydromorphone HCl (units (unknown) date) (Hydromorphone 1 unknown) Mg Inj) 1 mg IV NOW ONE (unknown) (no (unknown) (unknown) Hypertension (units (u nknown) date) unknown) (unknown) (no (unknown) (unknown) Initial Vital (units ( unknown) date) Signs unknown) (unknown) (no (unknown) (unknown) Initial Vital (units ( unknown) date) Signs: unknown) (unknown) (no (unknown) (unknown) [facility] (units (unknown) date) [address] [place] [address] Street unknown) [place] [address] (unknown) (no (unknown) (unknown) Lower urinary (units ( unknown) date) tract symptoms unknown) (unknown) (no (unknown) (unknown) Lumbar (units (unkno wn) date) radiculopathy unknown) (unknown) (no (unknown) (unknown) [id number] (units (unk nown) date) unknown) (unknown) (no (unknown) (unknown) Medical History (units (unknown) date) (Reviewed 07/24/22 unknown) @ 09:08 by Karuna Morse DO) (unknown) (no (unknown) (unknown) Medication (units (unk nown) date) Instructions unknown) Recorded Confirmed (unknown) (no (unknown) (unknown) Medication (units (unk nown) date) Instructions unknown) Recorded (unknown) (no (unknown) (unknown) Mother Cancer (units ( unknown) date) unknown) (unknown) (no (unknown) (unknown) NEUROLOGICAL: (units ( unknown) date) Alert and oriented unknown) x4. (unknown) (no (unknown) (unknown) Neck pain with (units (unknown) date) history of unknown) cervical spinal surgery (unknown) (no (unknown) (unknown) No Action (units (unkn own) date) unknown) (unknown) (no (unknown) (unknown) No Known Drug (units ( unknown) date) Allergies Allergy unknown) Verified 07/23/22 15:45 (unknown) (no (unknown) (unknown) Ordered: (units (unkno wn) date) unknown) (unknown) (no (unknown) (unknown) Orders (units (unkno wn) date) unknown) (unknown) (no (unknown) (unknown) Oxygen Delivery (units (unknown) date) Method Room Air unknown) 07/24/22 08:45 (unknown) (no (unknown) (unknown) Oxygen Delivery (units (unknown) date) Method Room Air unknown) (unknown) (no (unknown) (unknown) Patient History (units (unknown) date) unknown) (unknown) (no (unknown) (unknown) Patient is a (units (u nknown) date) 57-year-old unknown) history of hypertension, lumbar radiculopathy with (unknown) (no (unknown) (unknown) Patient: Bijan (units (unknown) date) Leny Hutchiosn MR#: unknown) (unknown) (no (unknown) (unknown) Prescriptions: (units (unknown) date) unknown) (unknown) (no (unknown) (unknown) Previous Rx's (units ( unknown) date) unknown) (unknown) (no (unknown) (unknown) 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) (no (unknown) (unknown) Primary (units (unkno wn) date) osteoarthritis of unknown) left knee (unknown) (no (unknown) (unknown) Prostate cancer (units (unknown) date) unknown) (unknown) (no (unknown) (unknown) Pulse Oximetry 98 (units (unknown) date) 07/24/22 08:45 unknown) (unknown) (no (unknown) (unknown) Pulse Oximetry 98 (units (unknown) date) unknown) (unknown) (no (unknown) (unknown) Pulse Rate 88 (units ( unknown) date) 07/24/22 08:45 unknown) (unknown) (no (unknown) (unknown) Pulse Rate 88 (units ( unknown) date) unknown) (unknown) (no (unknown) (unknown) RESPIRATORY: (units (u nknown) date) Breath sounds unknown) equal bilaterally, no wheezes rales or rhonchi. (unknown) (no (unknown) (unknown) ROS Unobtainable: (units (unknown) date) All systems unknown) reviewed + are unremarkable except as noted in HPI (unknown) (no (unknown) (unknown) Referrals: (units (unk nown) date) unknown) (unknown) (no (unknown) (unknown) Related Data (units (u nknown) date) unknown) (unknown) (no (unknown) (unknown) Respiratory Rate (units (unknown) date) 16 07/24/22 08:45 unknown) (unknown) (no (unknown) (unknown) Respiratory Rate (units (unknown) date) 16 unknown) (unknown) (no (unknown) (unknown) Review of Systems (units (unknown) date) unknown) (unknown) (no (unknown) (unknown) SKIN: Warm, dry, (units (unknown) date) no laceration, no unknown) petechiae, no rashes or lesions. (unknown) (no (unknown) (unknown) Signed By: (units (unk nown) date) unknown) (unknown) (no (unknown) (unknown) Smoking Status: (units (unknown) date) Never smoker unknown) (unknown) (no (unknown) (unknown) Social History (units (unknown) date) (Reviewed 07/24/22 unknown) @ 09:08 by Karuna Morse DO) (unknown) (no (unknown) (unknown) Source: patient (units (unknown) date) unknown) (unknown) (no (unknown) (unknown) Stated Complaint: (units (unknown) date) back pain unknown) (unknown) (no (unknown) (unknown) Stop: 07/24/22 (units (unknown) date) 08:52 unknown) (unknown) (no (unknown) (unknown) Substance Use (units ( unknown) date) Type: does not use unknown) (unknown) (no (unknown) (unknown) Surgical History (units (unknown) date) (Reviewed 07/24/22 unknown) @ 09:08 by Karuna Morse DO) (unknown) (no (unknown) (unknown) Temperature 98.0 (units (unknown) date) F 07/24/22 08:45 unknown) (unknown) (no (unknown) (unknown) Temperature 98.0 (units (unknown) date) F unknown) (unknown) (no (unknown) (unknown) Time Seen by (units (u nknown) date) Provider: 07/24/22 unknown) 08:51 (unknown) (no (unknown) (unknown) Vital Signs - 8 (units (unknown) date) hr unknown) (unknown) (no (unknown) (unknown) Vital Signs (units (un known) date) unknown) (unknown) (no (unknown) (unknown) Vital signs: (units (u nknown) date) unknown) (unknown) (no (unknown) (unknown) aerosol inhaler (units (unknown) date) (Ventolin HFA) unknown) Allergic Reaction (unknown) (no (unknown) (unknown) airplane and go (units (unknown) date) on vacation this unknown) evening very much like to do so. (unknown) (no (unknown) (unknown) albuterol sulfate (units (unknown) date) 90 mcg/actuation 2 unknown) puff inhalation Q4-6H PRN 11/21/20 07/23/22 (unknown) (no (unknown) (unknown) albuterol sulfate (units (unknown) date) [Ventolin HFA] 90 unknown) mcg/actuation HFA aerosol inhaler (unknown) (no (unknown) (unknown) alcohol intake (units (unknown) date) frequency: 0-2 unknown) drinks per day (unknown) (no (unknown) (unknown) alcohol intake: (units (unknown) date) current unknown) (unknown) (no (unknown) (unknown) and below (units (unkn own) date) unknown) (unknown) (no (unknown) (unknown) bowel or bladder (units (unknown) date) habits thought unknown) really radiating down his leg it is tender to (unknown) (no (unknown) (unknown) caffeine: Yes (units ( unknown) date) unknown) (unknown) (no (unknown) (unknown) canal stenosis (units (unknown) date) with recent unknown) diagnosis of prostate CA presenting today with right (unknown) (no (unknown) (unknown) capsule,delayed (units (unknown) date) release unknown) (unknown) (no (unknown) (unknown) celecoxib 400 mg (units (unknown) date) capsule (Celebrex) unknown) 400 mg PO DAILY 02/18/22 07/23/22 (unknown) (no (unknown) (unknown) celecoxib (units (unkn own) date) [Celebrex] 400 mg unknown) capsule (unknown) (no (unknown) (unknown) ciprofloxacin 500 (units (unknown) date) mg/5 mL oral 250 unknown) mg PO BID 07/23/22 07/23/22 (unknown) (no (unknown) (unknown) ciprofloxacin (units ( unknown) date) [Cipro] 500 mg/5 unknown) mL suspension,microca psule recon (unknown) (no (unknown) (unknown) clear. He says he (units (unknown) date) rolled over in bed unknown) and had instant pain. No changes with (unknown) (no (unknown) (unknown) distress. (units (unkn own) date) unknown) (unknown) (no (unknown) (unknown) esomeprazole (units (u nknown) date) magnesium 40 mg 40 unknown) mg PO DAILY #90 caps 02/18/22 (unknown) (no (unknown) (unknown) esomeprazole (units (u nknown) date) magnesium 40 mg unknown) capsule,delayed release(DR/EC) (unknown) (no (unknown) (unknown) gabapentin 600 mg (units (unknown) date) tablet 600 mg PO unknown) TID 07/23/22 07/23/22 (unknown) (no (unknown) (unknown) gabapentin 600 mg (units (unknown) date) tablet unknown) (unknown) (no (unknown) (unknown) guarding or (units (un known) date) rebound. unknown) (unknown) (no (unknown) (unknown) household (units (unkn own) date) members: spouse unknown) (unknown) (no (unknown) (unknown) intact (units (unkno wn) date) unknown) (unknown) (no (unknown) (unknown) leisure (units (unkno wn) date) activities: unknown) exercise (unknown) (no (unknown) (unknown) lisinopril 10 mg (units (unknown) date) tablet 10 mg PO unknown) DAILY #90 tabs 02/18/22 (unknown) (no (unknown) (unknown) lisinopril 10 mg (units (unknown) date) tablet unknown) (unknown) (no (unknown) (unknown) marital status: (units (unknown) date) unknown) (unknown) (no (unknown) (unknown) membranes (units (unkn own) date) unknown) (unknown) (no (unknown) (unknown) metoprolol (units (unk nown) date) succinate 25 mg 25 unknown) mg PO DAILY #90 tabs 05/11/22 (unknown) (no (unknown) (unknown) metoprolol (units (unk nown) date) succinate 25 mg unknown) tablet extended release 24 hr (unknown) (no (unknown) (unknown) number of (units (unkn own) date) children: 3 unknown) (unknown) (no (unknown) (unknown) occupational (units (u nknown) date) status: employed unknown) (unknown) (no (unknown) (unknown) sided back pain. (units (unknown) date) He actually unknown) reports that he had a bone scan yesterday that was (unknown) (no (unknown) (unknown) suspension (units (unk nown) date) (Cipro) unknown) (unknown) (no (unknown) (unknown) tablet,extended (units (unknown) date) release 24 hr unknown) (unknown) (no (unknown) (unknown) the edge off a (units (unknown) date) little. No fevers unknown) or chills. He is supposed to get on an (unknown) (no (unknown) (unknown) those results. He (units (unknown) date) did take some unknown) hydrocodone this morning it seems to have taken (unknown) (no (unknown) (unknown) touch. He had (units ( unknown) date) outpatient CT unknown) abdomen pelvis done early this morning. Waiting on Result panel 135 (unknown) (no date) (unknown) (unknown) 0 /ul (unkn own) (unknown) (no date) (unknown) (unknown) 0 /ul (unkn own) (unknown) (no date) (unknown) (unknown) 0.4 % (unkn own) (unknown) (no date) (unknown) (unknown) 0.6 % (unkn own) (unknown) (no date) (unknown) (unknown) 11.1 % (unkn own) (unknown) (no date) (unknown) (unknown) 132 x10 3/ul (unkn own) (unknown) (no date) (unknown) (unknown) 14.3 % (unkn own) (unknown) (no date) (unknown) (unknown) 14.3 % (unkn own) (unknown) (no date) (unknown) (unknown) 15.0 g/dl (unkn own) (unknown) (no date) (unknown) (unknown) 29.0 pg (unkn own) (unknown) (no date) (unknown) (unknown) 33.9 % (unkn own) (unknown) (no date) (unknown) (unknown) 4200 /ul (unkn own) (unknown) (no date) (unknown) (unknown) 44.2 % (unkn own) (unknown) (no date) (unknown) (unknown) 5.17 x10 6/ul (unkn own) (unknown) (no date) (unknown) (unknown) 5.7 x10 3/ul (unkn own) (unknown) (no date) (unknown) (unknown) 600 /ul (unkn own) (unknown) (no date) (unknown) (unknown) 73.6 % (unkn own) (unknown) (no date) (unknown) (unknown) 800 /ul (unkn own) (unknown) (no date) (unknown) (unknown) 85.6 fl (unkn own) Result panel 136 (unknown) (no date) (unknown) (unknown) > 60 ml/min (unkn own) (unknown) (no date) (unknown) (unknown) > 60 ml/min (unkn own) (unknown) (no date) (unknown) (unknown) 0.6 mg/dl (unkn own) (unknown) (no date) (unknown) (unknown) 0.82 mg/dl (unkn own) (unknown) (no date) (unknown) (unknown) 1.4 (units unknown) (unknown) (unknown) (no date) (unknown) (unknown) 100 mmol/l (unkn own) (unknown) (no date) (unknown) (unknown) 102 mg/dl (unkn own) (unknown) (no date) (unknown) (unknown) 102 mg/dl (unkn own) (unknown) (no date) (unknown) (unknown) 138 mmol/l (unkn own) (unknown) (no date) (unknown) (unknown) 16 mg/dl (unkn own) (unknown) (no date) (unknown) (unknown) 19.5 (units unknown) (unknown) (unknown) (no date) (unknown) (unknown) 25 iu/l (unkn own) (unknown) (no date) (unknown) (unknown) 29 iu/l (unkn own) (unknown) (no date) (unknown) (unknown) 3.1 g/dl (unkn own) (unknown) (no date) (unknown) (unknown) 3.9 mmol/l (unkn own) (unknown) (no date) (unknown) (unknown) 30 mmol/l (unkn own) (unknown) (no date) (unknown) (unknown) 4.2 g/dl (unkn own) (unknown) (no date) (unknown) (unknown) 59 u/l (unkn own) (unknown) (no date) (unknown) (unknown) 7.3 g/dl (unkn own) (unknown) (no date) (unknown) (unknown) 9.3 mg/dl (unkn own) Result panel 137 (unknown) (no (unknown) (unknown) (no value) (units (unk nown) date) unknown) (unknown) (no (unknown) (unknown) <Electronically (units (unknown) date) signed by Karuna katz) Mega Morse> (unknown) (no (unknown) (unknown) TRAMADOL DOES (units (unknown) date) NOT CONTAIN unknown) TYLENOL (unknown) (no (unknown) (unknown) *Continue to take (units (unknown) date) medications as unknown) directed (unknown) (no (unknown) (unknown) *Follow up with (units (unknown) date) your primary care unknown) provider in 2-3 days or call [phone] (unknown) (no (unknown) (unknown) *Return to ER if (units (unknown) date) you should have unknown) increasing pain numbness tingling weakness, (unknown) (no (unknown) (unknown) *What to do: At (units (unknown) date) this time stretch unknown) walk take it easy today. Recommend a heating (unknown) (no (unknown) (unknown) *You have been (units (unknown) date) diagnosed with low unknown) back pain, muscle spasm (unknown) (no (unknown) (unknown) 07/24/22 07/24/22 (units (unknown) date) Range/Units unknown) (unknown) (no (unknown) (unknown) 07/24/22 09:10 (units (unknown) date) unknown) (unknown) (no (unknown) (unknown) 07/24/22 1915 (units ( unknown) date) unknown) (unknown) (no (unknown) (unknown) 07/24/22 (units (unkno wn) date) unknown) (unknown) (no (unknown) (unknown) 08:45 (units (unkno wn) date) unknown) (unknown) (no (unknown) (unknown) 09:10 09:10 (units (un known) date) unknown) (unknown) (no (unknown) (unknown) 1 tab PO Q6H PRN (units (unknown) date) (Reason: pain) unknown) Qty: 20 0RF (unknown) (no (unknown) (unknown) 1,500 mg PO Q12HR (units (unknown) date) Qty: 20 0RF unknown) (unknown) (no (unknown) (unknown) 1. You have been (units (unknown) date) prescribed unknown) narcotic medications, it does have (unknown) (no (unknown) (unknown) 10 mg PO DAILY (units (unknown) date) Qty: 90 3RF unknown) (unknown) (no (unknown) (unknown) 2 puff inhalation (units (unknown) date) Q4-6H PRN (Reason: unknown) Allergic Reaction) (unknown) (no (unknown) (unknown) 2. Please (units (unkn own) date) understand that we unknown) cannot provide further refills of narcotics, (unknown) (no (unknown) (unknown) 25 mg PO DAILY (units (unknown) date) Qty: 90 3RF unknown) (unknown) (no (unknown) (unknown) 250 mg PO BID (units ( unknown) date) unknown) (unknown) (no (unknown) (unknown) 3. While on these (units (unknown) date) medications you unknown) cannot drive or operate heavy machinery. (unknown) (no (unknown) (unknown) 4. You cannot (units ( unknown) date) sign legal unknown) documents or perform any duties such as this. (unknown) (no (unknown) (unknown) 40 mg PO DAILY (units (unknown) date) Qty: 90 3RF unknown) (unknown) (no (unknown) (unknown) 400 mg PO DAILY (units (unknown) date) unknown) (unknown) (no (unknown) (unknown) 5. As long as (units ( unknown) date) you're taking unknown) opiate pain medications he should also be taking a (unknown) (no (unknown) (unknown) 600 mg PO TID (units ( unknown) date) unknown) (unknown) (no (unknown) (unknown) ? (units (unkno wn) date) unknown) (unknown) (no (unknown) (unknown) ABDOMEN: Soft, (units (unknown) date) nontender. unknown) Normoactive bowel sounds all 4 quadrants. No (unknown) (no (unknown) (unknown) ABDOMEN: (units (unkno wn) date) unknown) (unknown) (no (unknown) (unknown) ALT 29 (<50) IU/L (units (unknown) date) unknown) (unknown) (no (unknown) (unknown) AST 25 (17-59) (units (unknown) date) IU/L unknown) (unknown) (no (unknown) (unknown) Nicholas Malone MD (units (unknown) date) [Primary Care unknown) Provider] (unknown) (no (unknown) (unknown) Abdominal Nodes:? (units (unknown) date) No retroperitoneal unknown) or mesenteric adenopathy by size criteria.? (unknown) (no (unknown) (unknown) Abnormal prostate (units (unknown) date) by palpation unknown) (unknown) (no (unknown) (unknown) Active asthma (units ( unknown) date) unknown) (unknown) (no (unknown) (unknown) Activity (units (unkno wn) date) Restrictions/Addit unknown) ional Instructions: (unknown) (no (unknown) (unknown) Adrenal Glands:? (units (unknown) date) Unremarkable.? ? unknown) (unknown) (no (unknown) (unknown) After the (units (unkn own) date) administration of unknown) oral and IV contrast, axial sections were acquired (unknown) (no (unknown) (unknown) Age/Sex: 57 / M (units (unknown) date) unknown) (unknown) (no (unknown) (unknown) Albumin 4.2 (units (un known) date) (3.5-5.0) g/dL unknown) (unknown) (no (unknown) (unknown) Albumin/Globulin (units (unknown) date) Ratio 1.4 unknown) (1.0-2.8) (unknown) (no (unknown) (unknown) Alkaline (units (unkno wn) date) Phosphatase 59 unknown) (38-126) U/L (unknown) (no (unknown) (unknown) Allergies (units (unkn own) date) unknown) (unknown) (no (unknown) (unknown) Allergy/AdvReac (units (unknown) date) Type Severity unknown) Reaction Status Date / Time (unknown) (no (unknown) (unknown) BACK: No midline (units (unknown) date) tenderness, tender unknown) right lumbar area muscle spasm fell (unknown) (no (unknown) (unknown) BUN 16 (9-20) (units ( unknown) date) mg/dL unknown) (unknown) (no (unknown) (unknown) BUN/Creatinine (units (unknown) date) Ratio 19.5 (6-22) unknown) (unknown) (no (unknown) (unknown) Back pain with (units (unknown) date) history of spinal unknown) surgery (unknown) (no (unknown) (unknown) Baso # (Auto) 0 (units (unknown) date) (0-100) /uL unknown) (unknown) (no (unknown) (unknown) Baso % (Auto) 0.4 (units (unknown) date) (0-2) % unknown) (unknown) (no (unknown) (unknown) Bedside Urine (units ( unknown) date) Bilirubin - unknown) Negative (unknown) (no (unknown) (unknown) Bedside Urine (units ( unknown) date) Glucose Negative unknown) (unknown) (no (unknown) (unknown) Bedside Urine (units ( unknown) date) Ketone - Negative unknown) (unknown) (no (unknown) (unknown) Bedside Urine (units ( unknown) date) Leukocytes - unknown) Negative (unknown) (no (unknown) (unknown) Bedside Urine (units ( unknown) date) Nitrite - Negative unknown) (unknown) (no (unknown) (unknown) Bedside Urine (units ( unknown) date) Occult Blood - unknown) Negative (unknown) (no (unknown) (unknown) Bedside Urine (units ( unknown) date) Protein - Negative unknown) (unknown) (no (unknown) (unknown) Bedside Urine (units ( unknown) date) Urobilinogen - unknown) Negative (unknown) (no (unknown) (unknown) Bedside Urine pH (units (unknown) date) 7.5 unknown) (unknown) (no (unknown) (unknown) Biliary ducts:? (units (unknown) date) Unremarkable.? ? unknown) (unknown) (no (unknown) (unknown) Bladder:? Soft (units (unknown) date) tissue density is unknown) noted in the posterior inferior bladder (unknown) (no (unknown) (unknown) Blood Pressure (units (unknown) date) 163/99 H 07/24/22 unknown) 08:45 (unknown) (no (unknown) (unknown) Blood Pressure (units (unknown) date) 163/99 H unknown) (unknown) (no (unknown) (unknown) Blood work is (units ( unknown) date) also reassuring unknown) without signs of sepsis leukocytosis, no (unknown) (no (unknown) (unknown) Bones:? Focus of (units (unknown) date) scrotal oasis is unknown) noted in the right sacrum.? It is noted there (unknown) (no (unknown) (unknown) CARDIOVASCULAR: (units (unknown) date) Regular rate and unknown) rhythm without murmurs, rubs or gallops. (unknown) (no (unknown) (unknown) COMPARISON:? (units (u nknown) date) [facility], unknown) PR, PR BONE SCAN WHOLE BODY, 07/22/2022, 11:35.? (unknown) (no (unknown) (unknown) CONTROLLED (units (unk nown) date) SUBSTANCE unknown) DISCHARGE (Narcotoic/benzodi azepine/Flexeril/P henergan) (unknown) (no (unknown) (unknown) CT earlier work (units (unknown) date) bone scan done 2 unknown) days prior. It is reproducible with palpation (unknown) (no (unknown) (unknown) CT scan - (units (unkn own) date) abdomen/pelvis: unknown) (unknown) (no (unknown) (unknown) Calcium 9.3 (units (un known) date) (8.4-10.2) mg/dL unknown) (unknown) (no (unknown) (unknown) Carbon Dioxide 30 (units (unknown) date) (22-32) mmol/L unknown) (unknown) (no (unknown) (unknown) Chief Complaint: (units (unknown) date) Back Pain/Injury unknown) (unknown) (no (unknown) (unknown) Chloride 100 (units (u nknown) date) (98-107) mmol/L unknown) (unknown) (no (unknown) (unknown) Clinical (units (unkno wn) date) Impression: unknown) (unknown) (no (unknown) (unknown) Course (units (unkno wn) date) unknown) (unknown) (no (unknown) (unknown) Creatinine 0.82 (units (unknown) date) (0.66-1.25) mg/dL unknown) (unknown) (no (unknown) (unknown) : 1965 (units (unknown) date) Acct:[id number] unknown) (unknown) (no (unknown) (unknown) Date of Service: (units (unknown) date) 07/24/22 unknown) (unknown) (no (unknown) (unknown) Departure (units (unkn own) date) unknown) (unknown) (no (unknown) (unknown) Diabetes mellitus (units (unknown) date) unknown) (unknown) (no (unknown) (unknown) Dictated by: (units (u nknown) date) Janae Trejo M.D. unknown) on 07/24/2022 at 9:02 ?? (unknown) (no (unknown) (unknown) Discharge Plan (units (unknown) date) unknown) (unknown) (no (unknown) (unknown) Discontinued (units (u nknown) date) Medications unknown) (unknown) (no (unknown) (unknown) Documented By: AT (units (unknown) date) unknown) (unknown) (no (unknown) (unknown) ER Physician: (units ( unknown) date) Karuna Morse unknown) D.O. (unknown) (no (unknown) (unknown) EXTREMITIES: (units (u nknown) date) Normal range of unknown) motion, no clubbing or edema. Neurovascularly (unknown) (no (unknown) (unknown) Emergency Report (units (unknown) date) unknown) (unknown) (no (unknown) (unknown) Eos # (Auto) 0 (units (unknown) date) (0-450) /uL unknown) (unknown) (no (unknown) (unknown) Eos % (Auto) 0.6 (units (unknown) date) L (2-4) % unknown) (unknown) (no (unknown) (unknown) Esterase (units (unkno wn) date) unknown) (unknown) (no (unknown) (unknown) Estimated GFR > (units (unknown) date) 60 (>60) mL/min unknown) (unknown) (no (unknown) (unknown) Exam (units (unkno wn) date) unknown) (unknown) (no (unknown) (unknown) FINDINGS:? (units (unk nown) date) unknown) (unknown) (no (unknown) (unknown) Family History (units (unknown) date) (Reviewed 07/24/22 unknown) @ 09:08 by Karuna Morse DO) (unknown) (no (unknown) (unknown) Father (units (unkno wn) date) Hypertension unknown) (unknown) (no (unknown) (unknown) GENERAL: Alert (units (unknown) date) pleasant unknown) 57-year-old male appears uncomfortable and in no acute (unknown) (no (unknown) (unknown) : No CVA (units (unk nown) date) tenderness unknown) (unknown) (no (unknown) (unknown) Gallbladder:? (units ( unknown) date) Unremarkable.? ? unknown) (unknown) (no (unknown) (unknown) General (units (unkno wn) date) unknown) (unknown) (no (unknown) (unknown) Globulin 3.1 (units (u nknown) date) (1.7-4.1) g/dL unknown) (unknown) (no (unknown) (unknown) Glucose 102 H (units ( unknown) date) (70-100) mg/dL unknown) (unknown) (no (unknown) (unknown) H/O cervical (units (u nknown) date) spine surgery unknown) (unknown) (no (unknown) (unknown) HAVE SOOOO MUCH (units (unknown) date) fun on your unknown) cruise. And say Hi to [facility] for me :) (unknown) (no (unknown) (unknown) HEENT: Head (units (un known) date) atraumatic,EOMI, unknown) pupils reactive, face symmetric, moist mucous (unknown) (no (unknown) (unknown) HPI - Back (units (unk nown) date) Pain/Injury unknown) (unknown) (no (unknown) (unknown) HPI Narrative: (units (unknown) date) unknown) (unknown) (no (unknown) (unknown) Hct 44.2 (41-53) (units (unknown) date) % unknown) (unknown) (no (unknown) (unknown) Heart:? No (units (unk nown) date) significant unknown) findings. (unknown) (no (unknown) (unknown) Hgb 15.0 (units (unkno wn) date) (13.5-17.5) g/dL unknown) (unknown) (no (unknown) (unknown) History of (units (unk nown) date) Present Illness unknown) (unknown) (no (unknown) (unknown) History of lumbar (units (unknown) date) surgery unknown) (unknown) (no (unknown) (unknown) Home Medications (units (unknown) date) unknown) (unknown) (no (unknown) (unknown) Hydromorphone HCl (units (unknown) date) (Hydromorphone 1 unknown) Mg Inj) 1 mg IV NOW ONE (unknown) (no (unknown) (unknown) Hypertension (units (u nknown) date) unknown) (unknown) (no (unknown) (unknown) IMPRESSION:? (units (u nknown) date) unknown) (unknown) (no (unknown) (unknown) INDICATIONS:? New (units (unknown) date) diagnosis prostate unknown) cancer (unknown) (no (unknown) (unknown) Image quality:? (units (unknown) date) Excellent.? unknown) (unknown) (no (unknown) (unknown) Imaging Data (units (u nknown) date) unknown) (unknown) (no (unknown) (unknown) Imaging, RG, MRI (units (unknown) date) PELVIS W/WO unknown) CONTRAST, 06/05/2022, 8:04.? Outside Film, MR, MR (unknown) (no (unknown) (unknown) Initial Vital (units ( unknown) date) Signs unknown) (unknown) (no (unknown) (unknown) Initial Vital (units ( unknown) date) Signs: unknown) (unknown) (no (unknown) (unknown) Instructions: DI (units (unknown) date) for Low Back Pain, unknown) DI for Back Spasm (unknown) (no (unknown) (unknown) [facility] (units (unknown) date) [address] unknown) [place] [address] (unknown) (no (unknown) (unknown) Ketorolac (units (unkn own) date) Tromethamine unknown) (Ketorolac 30 Mg/Ml Vial) 15 mg IV NOW ONE (unknown) (no (unknown) (unknown) Kidneys and (units (un known) date) Ureters:? Simple unknown) left renal cyst. (unknown) (no (unknown) (unknown) LUMBAR (units (unkno wn) date) unknown) (unknown) (no (unknown) (unknown) Lab Data (units (unkno wn) date) unknown) (unknown) (no (unknown) (unknown) Lab Results (units (un known) date) unknown) (unknown) (no (unknown) (unknown) Labs: (units (unkno wn) date) unknown) (unknown) (no (unknown) (unknown) Last Admin: (units (un known) date) 07/24/22 09:16 unknown) Dose: 1 mg (unknown) (no (unknown) (unknown) Last Admin: (units (un known) date) 07/24/22 09:16 unknown) Dose: 15 mg (unknown) (no (unknown) (unknown) Liver:? (units (unkno wn) date) Unremarkable.? ? unknown) (unknown) (no (unknown) (unknown) Low back pain (units ( unknown) date) unknown) (unknown) (no (unknown) (unknown) Lower urinary (units ( unknown) date) tract symptoms unknown) (unknown) (no (unknown) (unknown) Lumbar (units (unkno wn) date) radiculopathy unknown) (unknown) (no (unknown) (unknown) Lung bases:? (units (u nknown) date) Unremarkable.? ? unknown) (unknown) (no (unknown) (unknown) Lymph # (Auto) (units (unknown) date) 800 L (6286-5245) unknown) /uL (unknown) (no (unknown) (unknown) Lymph % (Auto) (units (unknown) date) 14.3 L (25-40) % unknown) (unknown) (no (unknown) (unknown) [id number] (units (unk nown) date) unknown) (unknown) (no (unknown) (unknown) MCH 29.0 (26-34) (units (unknown) date) PG unknown) (unknown) (no (unknown) (unknown) MCHC 33.9 (30-36) (units (unknown) date) % unknown) (unknown) (no (unknown) (unknown) MCV 85.6 (80-100) (units (unknown) date) fL unknown) (unknown) (no (unknown) (unknown) MDM - Back (units (unk nown) date) Pain/Injury unknown) (unknown) (no (unknown) (unknown) MDM Narrative (units ( unknown) date) unknown) (unknown) (no (unknown) (unknown) Medical History (units (unknown) date) (Reviewed 07/24/22 unknown) @ 09:08 by Karuna Morse DO) (unknown) (no (unknown) (unknown) Medical decision (units (unknown) date) making narrative: unknown) (unknown) (no (unknown) (unknown) Medication (units (unk nown) date) Instructions unknown) Recorded Confirmed (unknown) (no (unknown) (unknown) Medication (units (unk nown) date) Instructions unknown) Recorded (unknown) (no (unknown) (unknown) Methocarbamol 750 (units (unknown) date) mg every 8 hours unknown) if needed for muscle spasm (unknown) (no (unknown) (unknown) Miscellaneous: No (units (unknown) date) inguinal hernias unknown) are seen. ? ? (unknown) (no (unknown) (unknown) [place] # (Auto) 600 (units (unknown) date) (0-900) /uL unknown) (unknown) (no (unknown) (unknown) [place] % (Auto) (units ( unknown) date) 11.1 (3-14) % unknown) (unknown) (no (unknown) (unknown) Mother Cancer (units ( unknown) date) unknown) (unknown) (no (unknown) (unknown) [place] (units (unkn own) date) unknown) (unknown) (no (unknown) (unknown) NEUROLOGICAL: (units ( unknown) date) Alert and oriented unknown) x4. (unknown) (no (unknown) (unknown) Neck pain with (units (unknown) date) history of unknown) cervical spinal surgery (unknown) (no (unknown) (unknown) Neut # (Auto) (units ( unknown) date) 4200 ([id number]) unknown) /uL (unknown) (no (unknown) (unknown) Neut % (Auto) (units ( unknown) date) 73.6 (50-75) % unknown) (unknown) (no (unknown) (unknown) New (units (unkno wn) date) unknown) (unknown) (no (unknown) (unknown) No Action (units (unkn own) date) unknown) (unknown) (no (unknown) (unknown) No Known Drug (units ( unknown) date) Allergies Allergy unknown) Verified 07/23/22 15:45 (unknown) (no (unknown) (unknown) [place] 1 tablet (units (unknown) date) every 6 hours if unknown) needed for severe pain (unknown) (no (unknown) (unknown) Ordered: (units (unkno wn) date) unknown) (unknown) (no (unknown) (unknown) Orders (units (unkno wn) date) unknown) (unknown) (no (unknown) (unknown) Oxygen Delivery (units (unknown) date) Method Room Air unknown) 07/24/22 08:45 (unknown) (no (unknown) (unknown) Oxygen Delivery (units (unknown) date) Method Room Air unknown) (unknown) (no (unknown) (unknown) PELVIS: (units (unkno wn) date) unknown) (unknown) (no (unknown) (unknown) PROCEDURE:? CT (units (unknown) date) ABDOMEN PELVIS W unknown) CON (unknown) (no (unknown) (unknown) Pain is better (units (unknown) date) after Dilaudid and unknown) Toradol here in the ED. He is to fly out on (unknown) (no (unknown) (unknown) Pancreas:? (units (unk nown) date) Unremarkable.? ? unknown) (unknown) (no (unknown) (unknown) Patient (units (unkno wn) date) 57-year-old male unknown) who presents with right-sided back pain newly diagnosed (unknown) (no (unknown) (unknown) Patient (units (unkno wn) date) Disposition: Home unknown) (unknown) (no (unknown) (unknown) Patient History (units (unknown) date) unknown) (unknown) (no (unknown) (unknown) Patient is a (units (u nknown) date) 57-year-old unknown) history of hypertension, lumbar radiculopathy with (unknown) (no (unknown) (unknown) Patient: Bijan (units (unknown) date) Leny Hutchison MR#: unknown) (unknown) (no (unknown) (unknown) Pelvic Nodes: No (units (unknown) date) enlarged lymph unknown) nodes.? (unknown) (no (unknown) (unknown) Pelvic Organs:? (units (unknown) date) Prostate gland is unknown) enlarged. (unknown) (no (unknown) (unknown) Peritoneum:? No (units (unknown) date) abnormal unknown) intraperitoneal fluid.? No free air.? 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 No (unknown) (no (unknown) (unknown) Pulse Oximetry 98 (units (unknown) date) 07/24/22 08:45 unknown) (unknown) (no (unknown) (unknown) Pulse Oximetry 98 (units (unknown) date) unknown) (unknown) (no (unknown) (unknown) Pulse Rate 88 (units ( unknown) date) 07/24/22 08:45 unknown) (unknown) (no (unknown) (unknown) Pulse Rate 88 (units ( unknown) date) unknown) (unknown) (no (unknown) (unknown) RBC 5.17 (units (unkno wn) date) (4.5-5.9) X106/uL unknown) (unknown) (no (unknown) (unknown) RDW 14.3 (units (unkno wn) date) (11.6-14.8) % unknown) (unknown) (no (unknown) (unknown) RESPIRATORY: (units (u nknown) date) Breath sounds unknown) equal bilaterally, no wheezes rales or rhonchi. (unknown) (no (unknown) (unknown) ROS Unobtainable: (units (unknown) date) All systems unknown) reviewed + are unremarkable except as noted in HPI (unknown) (no (unknown) (unknown) Radiologist's (units ( unknown) date) Impression: unknown) (unknown) (no (unknown) (unknown) Referrals: (units (unk nown) date) unknown) (unknown) (no (unknown) (unknown) Related Data (units (u nknown) date) unknown) (unknown) (no (unknown) (unknown) Respiratory Rate (units (unknown) date) 16 07/24/22 08:45 unknown) (unknown) (no (unknown) (unknown) Respiratory Rate (units (unknown) date) 16 unknown) (unknown) (no (unknown) (unknown) Review of Systems (units (unknown) date) unknown) (unknown) (no (unknown) (unknown) Bryce Page MD (units (unknown) date) [Physician] unknown) (unknown) (no (unknown) (unknown) SKIN: Warm, dry, (units (unknown) date) no laceration, no unknown) petechiae, no rashes or lesions. (unknown) (no (unknown) (unknown) SPINE WITHOUT (units ( unknown) date) CONTRAST, unknown) 06/04/2022, 15:44. (unknown) (no (unknown) (unknown) Signed By: (units (unk nown) date) unknown) (unknown) (no (unknown) (unknown) Smoking Status: (units (unknown) date) Never smoker unknown) (unknown) (no (unknown) (unknown) Social History (units (unknown) date) (Reviewed 07/24/22 unknown) @ 09:08 by Karuna Morse DO) (unknown) (no (unknown) (unknown) Sodium 138 (units (unk nown) date) (137-145) mmol/L unknown) (unknown) (no (unknown) (unknown) Source: patient (units (unknown) date) unknown) (unknown) (no (unknown) (unknown) Spleen:? (units (unkno wn) date) Unremarkable.? ? unknown) (unknown) (no (unknown) (unknown) Stand Alone (units (un known) date) Forms: Patient unknown) Portal/API (unknown) (no (unknown) (unknown) Stated Complaint: (units (unknown) date) back pain unknown) (unknown) (no (unknown) (unknown) Stomach and (units (un known) date) Bowel:? Stomach, unknown) small bowel loops, and colon are nonobstructive.? (unknown) (no (unknown) (unknown) Stop: 07/24/22 (units (unknown) date) 08:52 unknown) (unknown) (no (unknown) (unknown) Stop: 07/24/22 (units (unknown) date) 09:10 unknown) (unknown) (no (unknown) (unknown) Substance Use (units ( unknown) date) Type: does not use unknown) (unknown) (no (unknown) (unknown) Surgical History (units (unknown) date) (Reviewed 07/24/22 unknown) @ 09:08 by Karuna Morse DO) (unknown) (no (unknown) (unknown) TECHNIQUE:? (units (un known) date) unknown) (unknown) (no (unknown) (unknown) Temperature 98.0 (units (unknown) date) F 07/24/22 08:45 unknown) (unknown) (no (unknown) (unknown) Temperature 98.0 (units (unknown) date) F unknown) (unknown) (no (unknown) (unknown) Time Seen by (units (u nknown) date) Provider: 07/24/22 unknown) 08:51 (unknown) (no (unknown) (unknown) Total Bilirubin (units (unknown) date) 0.6 (0.2-1.3) unknown) mg/dL (unknown) (no (unknown) (unknown) Total Protein 7.3 (units (unknown) date) (6.3-8.2) g/dL unknown) (unknown) (no (unknown) (unknown) Urine Dip (units (unkn own) date) unknown) (unknown) (no (unknown) (unknown) Urine Specific (units (unknown) date) [place] 1.010 unknown) (unknown) (no (unknown) (unknown) Ventral Wall: ? (units (unknown) date) No hernia.? unknown) (unknown) (no (unknown) (unknown) Vessels:? Aorta (units (unknown) date) and inferior vena unknown) cava are normal in size.? (unknown) (no (unknown) (unknown) Vital Signs - 8 (units (unknown) date) hr unknown) (unknown) (no (unknown) (unknown) Vital Signs (units (un known) date) unknown) (unknown) (no (unknown) (unknown) Vital signs: (units (u nknown) date) unknown) (unknown) (no (unknown) (unknown) WBC 5.7 (units (unkno wn) date) (4.5-11.0) X103/uL unknown) (unknown) (no (unknown) (unknown) [Embedded Image (units (unknown) date) Not Available] unknown) (unknown) (no (unknown) (unknown) acetaminophen/Tyl (units (unknown) date) enol/paracetamol unknown) in it, DO NOT TAKE MORE THAN 4,00mg in 24 (unknown) (no (unknown) (unknown) adjustment (units (unk nown) date) unknown) (unknown) (no (unknown) (unknown) aerosol inhaler (units (unknown) date) (Ventolin HFA) unknown) Allergic Reaction (unknown) (no (unknown) (unknown) airplane and go (units (unknown) date) on vacation this unknown) evening very much like to do so. (unknown) (no (unknown) (unknown) albuterol sulfate (units (unknown) date) 90 mcg/actuation 2 unknown) puff inhalation Q4-6H PRN 11/21/20 07/23/22 (unknown) (no (unknown) (unknown) albuterol sulfate (units (unknown) date) [Ventolin HFA] 90 unknown) mcg/actuation HFA aerosol inhaler (unknown) (no (unknown) (unknown) alcohol intake (units (unknown) date) frequency: 0-2 unknown) drinks per day (unknown) (no (unknown) (unknown) alcohol intake: (units (unknown) date) current unknown) (unknown) (no (unknown) (unknown) and below (units (unkn own) date) unknown) (unknown) (no (unknown) (unknown) and muscle (units (unk nown) date) relaxers to travel unknown) with. (unknown) (no (unknown) (unknown) appreciable (units (un known) date) uptake in this unknown) region on bone scan. (unknown) (no (unknown) (unknown) becoming (units (unkno wn) date) unknown) (unknown) (no (unknown) (unknown) benzodiazepines (units (unknown) date) or controlled unknown) substances through the ED and her pain management (unknown) (no (unknown) (unknown) bowel or bladder (units (unknown) date) changes or any unknown) new, worsening or concerning symptoms (unknown) (no (unknown) (unknown) bowel or bladder (units (unknown) date) habits thought unknown) really radiating down his leg it is tender to (unknown) (no (unknown) (unknown) caffeine: Yes (units ( unknown) date) unknown) (unknown) (no (unknown) (unknown) canal stenosis (units (unknown) date) with recent unknown) diagnosis of prostate CA presenting today with right (unknown) (no (unknown) (unknown) capsule,delayed (units (unknown) date) release unknown) (unknown) (no (unknown) (unknown) celecoxib 400 mg (units (unknown) date) capsule (Celebrex) unknown) 400 mg PO DAILY 02/18/22 07/23/22 (unknown) (no (unknown) (unknown) celecoxib (units (unkn own) date) [Celebrex] 400 mg unknown) capsule (unknown) (no (unknown) (unknown) change. (units (unkno wn) date) unknown) (unknown) (no (unknown) (unknown) ciprofloxacin 500 (units (unknown) date) mg/5 mL oral 250 unknown) mg PO BID 07/23/22 07/23/22 (unknown) (no (unknown) (unknown) ciprofloxacin (units ( unknown) date) [Cipro] 500 mg/5 unknown) mL suspension,microca psule recon (unknown) (no (unknown) (unknown) clear. He says he (units (unknown) date) rolled over in bed unknown) and had instant pain. No changes with (unknown) (no (unknown) (unknown) colonic (units (unkno wn) date) diverticula are unknown) present most notably in the right colon without (unknown) (no (unknown) (unknown) constipation. (units ( unknown) date) unknown) (unknown) (no (unknown) (unknown) contiguous with (units (unknown) date) the enlarged unknown) prostate. (unknown) (no (unknown) (unknown) distress. (units (unkn own) date) unknown) (unknown) (no (unknown) (unknown) electrolyte (units (un known) date) abnormality no unknown) evidence of UTI. Patient is given pain medications (unknown) (no (unknown) (unknown) esomeprazole (units (u nknown) date) magnesium 40 mg 40 unknown) mg PO DAILY #90 caps 02/18/22 (unknown) (no (unknown) (unknown) esomeprazole (units (u nknown) date) magnesium 40 mg unknown) capsule,delayed release(DR/EC) (unknown) (no (unknown) (unknown) from the (units (unkno wn) date) unknown) (unknown) (no (unknown) (unknown) gabapentin 600 mg (units (unknown) date) tablet 600 mg PO unknown) TID 07/23/22 07/23/22 (unknown) (no (unknown) (unknown) gabapentin 600 mg (units (unknown) date) tablet unknown) (unknown) (no (unknown) (unknown) guarding or (units (un known) date) rebound. unknown) (unknown) (no (unknown) (unknown) hours of Tylenol. (units (unknown) date) unknown) (unknown) (no (unknown) (unknown) household (units (unkn own) date) members: spouse unknown) (unknown) (no (unknown) (unknown) hydrocodone 5 (units ( unknown) date) mg-acetaminophen unknown) 325 1 tab PO Q6H PRN pain #20 tabs 07/24/22 (unknown) (no (unknown) (unknown) hydrocodone-aceta (units (unknown) date) minophen 5-325 mg unknown) tablet (unknown) (no (unknown) (unknown) inflammatory (units (u nknown) date) unknown) (unknown) (no (unknown) (unknown) intact (units (unkno wn) date) unknown) (unknown) (no (unknown) (unknown) leisure (units (unkno wn) date) activities: unknown) exercise (unknown) (no (unknown) (unknown) lisinopril 10 mg (units (unknown) date) tablet 10 mg PO unknown) DAILY #90 tabs 02/18/22 (unknown) (no (unknown) (unknown) lisinopril 10 mg (units (unknown) date) tablet unknown) (unknown) (no (unknown) (unknown) lung bases to the (units (unknown) date) pubic symphysis.? unknown) Coronal and sagittal reformats were (unknown) (no (unknown) (unknown) marital status: (units (unknown) date) unknown) (unknown) (no (unknown) (unknown) membranes (units (unkn own) date) unknown) (unknown) (no (unknown) (unknown) metastatic (units (unk nown) date) disease. unknown) (unknown) (no (unknown) (unknown) methocarbamol 750 (units (unknown) date) mg tablet 1,500 mg unknown) PO Q12HR #20 tabs 07/24/22 (unknown) (no (unknown) (unknown) methocarbamol 750 (units (unknown) date) mg tablet unknown) (unknown) (no (unknown) (unknown) metoprolol (units (unk nown) date) succinate 25 mg 25 unknown) mg PO DAILY #90 tabs 05/11/22 (unknown) (no (unknown) (unknown) metoprolol (units (unk nown) date) succinate 25 mg unknown) tablet extended release 24 hr (unknown) (no (unknown) (unknown) mg tablet (units (unkn own) date) unknown) (unknown) (no (unknown) (unknown) number of (units (unkn own) date) children: 3 unknown) (unknown) (no (unknown) (unknown) occupational (units (u nknown) date) status: employed unknown) (unknown) (no (unknown) (unknown) of mA and/or kV (units (unknown) date) according to unknown) patient size. (unknown) (no (unknown) (unknown) pad. Be sure to (units (unknown) date) get up and move unknown) around the airplane. (unknown) (no (unknown) (unknown) performed.? For (units (unknown) date) unknown) (unknown) (no (unknown) (unknown) prostate cancer. (units (unknown) date) At this time there unknown) is no evidence of metastasis on abdominal (unknown) (no (unknown) (unknown) radiation dose (units (unknown) date) reduction, the unknown) following was used:? automated exposure control, (unknown) (no (unknown) (unknown) sided back pain. (units (unknown) date) He actually unknown) reports that he had a bone scan yesterday that was (unknown) (no (unknown) (unknown) sometimes is (units (u nknown) date) radiating down his unknown) right leg he has no cauda equina like symptoms. (unknown) (no (unknown) (unknown) stool softener (units (unknown) date) such as Colace, unknown) Dulcolax, MiraLAX or prune juice, to help avoid (unknown) (no (unknown) (unknown) suspension (units (unk nown) date) (Cipro) unknown) (unknown) (no (unknown) (unknown) tablet,extended (units (unknown) date) release 24 hr unknown) (unknown) (no (unknown) (unknown) the edge off a (units (unknown) date) little. No fevers unknown) or chills. He is supposed to get on an (unknown) (no (unknown) (unknown) those results. He (units (unknown) date) did take some unknown) hydrocodone this morning it seems to have taken (unknown) (no (unknown) (unknown) touch. He had (units ( unknown) date) outpatient CT unknown) abdomen pelvis done early this morning. Waiting on (unknown) (no (unknown) (unknown) vacation tonight. (units (unknown) date) I suspect that unknown) this is musculoskeletal and back strain. (unknown) (no (unknown) (unknown) visualized (units (unk nown) date) unknown) (unknown) (no (unknown) (unknown) was no (units (unkno wn) date) unknown) (unknown) (no (unknown) (unknown) will need to be (units (unknown) date) through your unknown) provider. Result panel 138 (unknown) (no (unknown) (unknown) (no value) (units (unk nown) date) unknown) (unknown) (no (unknown) (unknown) (1) Prostate (units (u nknown) date) cancer: unknown) (unknown) (no (unknown) (unknown) (2) Lower (units (unkn own) date) urinary tract unknown) symptoms: (unknown) (no (unknown) (unknown) (3) Abnormal (units (u nknown) date) prostate by unknown) palpation: (unknown) (no (unknown) (unknown) 05/11/22 [Rx (units (u nknown) date) Confirmed unknown) 07/23/22] (unknown) (no (unknown) (unknown) 07/23/22 (units (unkno wn) date) unknown) (unknown) (no (unknown) (unknown) 07/23/22] (units (unkn own) date) unknown) (unknown) (no (unknown) (unknown) 07/24/22 [Rx] (units ( unknown) date) unknown) (unknown) (no (unknown) (unknown) 08/04/22 1254 (units ( unknown) date) unknown) (unknown) (no (unknown) (unknown) 02/18/22 [Rx (units (u nknown) date) Confirmed unknown) 07/23/22] (unknown) (no (unknown) (unknown) 15:51 (units (unkno wn) date) unknown) (unknown) (no (unknown) (unknown) Abnormal (units (unkno wn) date) prostate by unknown) palpation (unknown) (no (unknown) (unknown) Accompanied by: (units (unknown) date) : Ayleen unknown) (unknown) (no (unknown) (unknown) Active asthma (units ( unknown) date) unknown) (unknown) (no (unknown) (unknown) Add'l Complaint: (units (unknown) date) unknown) (unknown) (no (unknown) (unknown) Age/Sex: 57 / M (units (unknown) date) Date of Service: unknown) (unknown) (no (unknown) (unknown) Allergies (units (unkn own) date) unknown) (unknown) (no (unknown) (unknown) [place], [place] (units ( unknown) date) [id number] unknown) (unknown) (no (unknown) (unknown) Assessment + (units (u nknown) date) Plan unknown) (unknown) (no (unknown) (unknown) Assessment and (units (unknown) date) plan: Prostate unknown) cancer bone scan showing degenerative changes but (unknown) (no (unknown) (unknown) Attending Dr: (units ( unknown) date) Bryce Page MD unknown) (unknown) (no (unknown) (unknown) BP 113/77 (units (unkn own) date) unknown) (unknown) (no (unknown) (unknown) Back pain with (units (unknown) date) history of spinal unknown) surgery (unknown) (no (unknown) (unknown) Blood Pressure (units (unknown) date) Location Rt unknown) brachial (unknown) (no (unknown) (unknown) C61 - Malignant (units (unknown) date) neoplasm of unknown) prostate (unknown) (no (unknown) (unknown) CT scan once it (units (unknown) date) is available. We unknown) will then have them return and make plans as (unknown) (no (unknown) (unknown) Chief Complaint (units (unknown) date) unknown) (unknown) (no (unknown) (unknown) Chief Complaint: (units (unknown) date) Prostate cancer unknown) (unknown) (no (unknown) (unknown) Code(s): (units (unkno wn) date) unknown) (unknown) (no (unknown) (unknown) : 1965 (units (unknown) date) Acct:[id number] unknown) (unknown) (no (unknown) (unknown) Dept at (units (unkno wn) date) . unknown) (unknown) (no (unknown) (unknown) Details: (units (unkno wn) date) unknown) (unknown) (no (unknown) (unknown) Diabetes (units (unkno wn) date) mellitus unknown) (unknown) (no (unknown) (unknown) Documented By: (units (unknown) date) Bryce Page MD unknown) 07/23/22 1537 (unknown) (no (unknown) (unknown) Family History (units (unknown) date) (Reviewed unknown) 07/24/22 @ 09:08 by Karuna Morse DO) (unknown) (no (unknown) (unknown) Father (units (unkno wn) date) Hypertension unknown) (unknown) (no (unknown) (unknown) H/O cervical (units (u nknown) date) spine surgery unknown) (unknown) (no (unknown) (unknown) HPI (units (unkno wn) date) unknown) (unknown) (no (unknown) (unknown) Height 6 ft 3 in (units (unknown) date) unknown) (unknown) (no (unknown) (unknown) History of (units (unk nown) date) lumbar surgery unknown) (unknown) (no (unknown) (unknown) Hypertension (units (u nknown) date) unknown) (unknown) (no (unknown) (unknown) Intake Note: (units (u nknown) date) unknown) (unknown) (no (unknown) (unknown) Intake performed (units (unknown) date) by: unknown) Keri Redmond (unknown) (no (unknown) (unknown) Intake (units (unkno wn) date) unknown) (unknown) (no (unknown) (unknown) Intake- Clincial (units (unknown) date) Staff unknown) (unknown) (no (unknown) (unknown) [facility] (units (unknown) date) unknown) (unknown) (no (unknown) (unknown) Loc: [facility] (units (unkno wn) date) unknown) (unknown) (no (unknown) (unknown) Lower urinary (units ( unknown) date) tract symptoms unknown) (unknown) (no (unknown) (unknown) Lower urinary (units ( unknown) date) tract symptoms, unknown) abnormal prostate by palpation come elevated PSA (unknown) (no (unknown) (unknown) Lumbar (units (unkno wn) date) radiculopathy unknown) (unknown) (no (unknown) (unknown) [id number] (units (unk nown) date) unknown) (unknown) (no (unknown) (unknown) Medical History (units (unknown) date) (Reviewed unknown) 07/24/22 @ 09:08 by Karuna Morse DO) (unknown) (no (unknown) (unknown) Medications (units (un known) date) unknown) (unknown) (no (unknown) (unknown) Mother Cancer (units ( unknown) date) unknown) (unknown) (no (unknown) (unknown) N42.9 - Disorder (units (unknown) date) of prostate, unknown) unspecified (unknown) (no (unknown) (unknown) Neck pain with (units (unknown) date) history of unknown) cervical spinal surgery (unknown) (no (unknown) (unknown) No Known Drug (units ( unknown) date) Allergies Allergy unknown) (Verified 07/23/22 15:45) (unknown) (no (unknown) (unknown) Overall they had (units (unknown) date) many questions unknown) today total time 33 minutes will look forward to (unknown) (no (unknown) (unknown) Oxygen Delivery (units (unknown) date) Method room air unknown) (unknown) (no (unknown) (unknown) PFSH (units (unkno wn) date) unknown) (unknown) (no (unknown) (unknown) Patient is here (units (unknown) date) to discuss Bone unknown) Scan results (unknown) (no (unknown) (unknown) Patient: Bijan (units (unknown) date) Leny Hutchison MR#: unknown) (unknown) (no (unknown) (unknown) Plan (units (unkno wn) date) unknown) (unknown) (no (unknown) (unknown) Position Sitting (units (unknown) date) unknown) (unknown) (no (unknown) (unknown) 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) (no (unknown) (unknown) Primary (units (unkno wn) date) osteoarthritis of unknown) left knee (unknown) (no (unknown) (unknown) Prostate cancer (units (unknown) date) unknown) (unknown) (no (unknown) (unknown) Pulse 78 (units (unkno wn) date) unknown) (unknown) (no (unknown) (unknown) Pulse Oximetry (units (unknown) date) (%) 96 unknown) (unknown) (no (unknown) (unknown) Pulse Source (units (u nknown) date) Monitor unknown) (unknown) (no (unknown) (unknown) R39.9 - (units (unkno wn) date) Unspecified unknown) symptoms and signs involving the genitourinary system (unknown) (no (unknown) (unknown) Reason For Visit (units (unknown) date) unknown) (unknown) (no (unknown) (unknown) Signed By: (units (unk nown) date) <Electronically unknown) signed by Bryce Page MD> (unknown) (no (unknown) (unknown) Signed (units (unkno wn) date) unknown) (unknown) (no (unknown) (unknown) Smoking Status: (units (unknown) date) Never smoker unknown) (unknown) (no (unknown) (unknown) Social History (units (unknown) date) (Reviewed unknown) 07/24/22 @ 09:08 by Karuna Morse DO) (unknown) (no (unknown) (unknown) Status: Acute (units ( unknown) date) unknown) (unknown) (no (unknown) (unknown) Surgical History (units (unknown) date) (Reviewed unknown) 07/24/22 @ 09:08 by Karuna Morse DO) (unknown) (no (unknown) (unknown) This 57-year-old (units (unknown) date) male comes in unknown) follow-up of his new diagnosis of adenocarcinoma (unknown) (no (unknown) (unknown) This note may (units ( unknown) date) have been all or unknown) partially generated using voice recognition (unknown) (no (unknown) (unknown) Tobacco Status (units (unknown) date) unknown) (unknown) (no (unknown) (unknown) Urology Office (units (unknown) date) Visit unknown) (unknown) (no (unknown) (unknown) Visit Reasons: (units (unknown) date) CT + Bone scan unknown) review (unknown) (no (unknown) (unknown) Vitals (units (unkno wn) date) unknown) (unknown) (no (unknown) (unknown) [History (units (unkno wn) date) Confirmed unknown) 07/23/22] (unknown) (no (unknown) (unknown) again is (units (unkno wn) date) reviewed and unknown) reveals multifocal areas of uptake most likely (unknown) (no (unknown) (unknown) albuterol (units (unkn own) date) sulfate 90 unknown) mcg/actuation aerosol inhaler (Ventolin HFA) 2 puff (unknown) (no (unknown) (unknown) alcohol intake: (units (unknown) date) current unknown) (unknown) (no (unknown) (unknown) caffeine: Yes (units ( unknown) date) unknown) (unknown) (no (unknown) (unknown) celecoxib 400 mg (units (unknown) date) capsule unknown) (Celebrex) 400 mg PO DAILY 02/18/22 [History Confirmed (unknown) (no (unknown) (unknown) ciprofloxacin (units ( unknown) date) 500 mg/5 mL oral unknown) suspension (Cipro) 250 mg PO BID 07/23/22 (unknown) (no (unknown) (unknown) degenerative in (units (unknown) date) nature. The unknown) favorable nature this was gone over with the (unknown) (no (unknown) (unknown) esomeprazole (units (u nknown) date) magnesium 40 mg unknown) capsule,delayed release 40 mg PO DAILY #90 caps (unknown) (no (unknown) (unknown) far as therapy (units (unknown) date) for the patient unknown) wants the details of the CT scan are in hand. (unknown) (no (unknown) (unknown) follow-up upon (units (unknown) date) their return from unknown) their cruise (unknown) (no (unknown) (unknown) future plans will (units (unknown) date) call him with the unknown) results of the CT once that is available and (unknown) (no (unknown) (unknown) gabapentin 600 (units (unknown) date) mg tablet 600 mg unknown) PO TID 07/23/22 [History Confirmed 07/23/22] (unknown) (no (unknown) (unknown) have occurred. (units (unknown) date) If there are any unknown) questions, please contact the Medical Records (unknown) (no (unknown) (unknown) household (units (unkn own) date) members: spouse unknown) (unknown) (no (unknown) (unknown) hydrocodone 5 (units ( unknown) date) mg-acetaminophen unknown) 325 mg tablet 1 tab PO Q6H PRN pain #20 tabs (unknown) (no (unknown) (unknown) inhalation Q4-6H (units (unknown) date) PRN Allergic unknown) Reaction 11/21/20 [History Confirmed 07/23/22] (unknown) (no (unknown) (unknown) leisure (units (unkno wn) date) activities: unknown) exercise (unknown) (no (unknown) (unknown) less than 10, (units ( unknown) date) bladder outlet unknown) obstruction, low back pain (unknown) (no (unknown) (unknown) lisinopril 10 mg (units (unknown) date) tablet 10 mg PO unknown) DAILY #90 tabs 02/18/22 [Rx Confirmed 07/23/22] (unknown) (no (unknown) (unknown) marital status: (units (unknown) date) unknown) (unknown) (no (unknown) (unknown) may occur. (units (unk nown) date) Occasional unknown) wrong-word or 'sound-alike' substitutions may have (unknown) (no (unknown) (unknown) methocarbamol (units ( unknown) date) 750 mg tablet unknown) 1,500 mg PO Q12HR #20 tabs 07/24/22 [Rx] (unknown) (no (unknown) (unknown) metoprolol (units (unkn own) date) succinate 25 mg unknown) tablet,extended release 24 hr 25 mg PO DAILY #90 tabs (unknown) (no (unknown) (unknown) no evidence of (units (unknown) date) disease will unknown) await his CT scan and there return and then make (unknown) (no (unknown) (unknown) not able to get (units (unknown) date) a CT scan prior unknown) to the patient's visit today. The bone scan (unknown) (no (unknown) (unknown) number of (units (unkn own) date) children: 3 unknown) (unknown) (no (unknown) (unknown) occupational (units (u nknown) date) status: employed unknown) (unknown) (no (unknown) (unknown) occurred due to (units (unknown) date) the inherent unknown) limitations of voice recognition software. Please (unknown) (no (unknown) (unknown) of the prostate. (units (unknown) date) He comes with a unknown) bone scan today which is reviewed and reviewed (unknown) (no (unknown) (unknown) patient and then (units (unknown) date) a discussion unknown) about what things might look like going forward (unknown) (no (unknown) (unknown) read the note (units ( unknown) date) carefully and unknown) recognize, using context, where these substitutions (unknown) (no (unknown) (unknown) software. (units (unkn own) date) Although every unknown) effort is made to edit content, emt i/99 errors (unknown) (no (unknown) (unknown) then discuss (units (u nknown) date) future plans once unknown) they return from their cruise. (unknown) (no (unknown) (unknown) there headed out (units (unknown) date) on a cruise and I unknown) will try to call them with the results of the (unknown) (no (unknown) (unknown) with the patient (units (unknown) date) unfortunately the unknown) CT scanner was malfunctioning and we were Result panel 139 (unknown) (no (unknown) (unknown) (no value) (units (unk nown) date) unknown) (unknown) (no (unknown) (unknown) 08/06/22 (units (unkno wn) date) unknown) (unknown) (no (unknown) (unknown) 57 Y/O M (units (unkno wn) date) presents to unknown) clinic to discuss cancer treatment options. (unknown) (no (unknown) (unknown) Abnormal (units (unkno wn) date) prostate by unknown) palpation (unknown) (no (unknown) (unknown) Active asthma (units ( unknown) date) unknown) (unknown) (no (unknown) (unknown) Age/Sex: 57 / M (units (unknown) date) Date of Service: unknown) (unknown) (no (unknown) (unknown) Allergies (units (unkn own) date) unknown) (unknown) (no (unknown) (unknown) AUSTIN Melendez (units ( unknown) date) [id number] unknown) (unknown) (no (unknown) (unknown) Attending Dr: (units ( unknown) date) Bryce Page MD unknown) (unknown) (no (unknown) (unknown) Back pain with (units (unknown) date) history of spinal unknown) surgery (unknown) (no (unknown) (unknown) : 1965 (units (unknown) date) Acct:[id number] unknown) (unknown) (no (unknown) (unknown) Dept at (units (unkno wn) date) . unknown) (unknown) (no (unknown) (unknown) Diabetes (units (unkno wn) date) mellitus unknown) (unknown) (no (unknown) (unknown) Documented By: (units (unknown) date) Bryce Page MD unknown) 08/06/22 1517 (unknown) (no (unknown) (unknown) Draft (units (unkno wn) date) unknown) (unknown) (no (unknown) (unknown) Family History (units (unknown) date) (Reviewed unknown) 07/24/22 @ 09:08 by Karuna Morse DO) (unknown) (no (unknown) (unknown) Father (units (unkno wn) date) Hypertension unknown) (unknown) (no (unknown) (unknown) H/O cervical (units (u nknown) date) spine surgery unknown) (unknown) (no (unknown) (unknown) History of (units (unk nown) date) lumbar surgery unknown) (unknown) (no (unknown) (unknown) Hypertension (units (u nknown) date) unknown) (unknown) (no (unknown) (unknown) Intake Note: (units (u nknown) date) unknown) (unknown) (no (unknown) (unknown) Intake performed (units (unknown) date) by: unknown) Skye Cosby (unknown) (no (unknown) (unknown) Intake (units (unkno wn) date) unknown) (unknown) (no (unknown) (unknown) Intake- Clincial (units (unknown) date) Staff unknown) (unknown) (no (unknown) (unknown) [facility] (units (unknown) date) unknown) (unknown) (no (unknown) (unknown) Loc: [facility] (units (unkno wn) date) unknown) (unknown) (no (unknown) (unknown) Lower urinary (units ( unknown) date) tract symptoms unknown) (unknown) (no (unknown) (unknown) Lumbar (units (unkno wn) date) radiculopathy unknown) (unknown) (no (unknown) (unknown) [id number] (units (unk nown) date) unknown) (unknown) (no (unknown) (unknown) Medical History (units (unknown) date) (Reviewed unknown) 07/24/22 @ 09:08 by Karuna Morse DO) (unknown) (no (unknown) (unknown) Mother Cancer (units ( unknown) date) unknown) (unknown) (no (unknown) (unknown) Neck pain with (units (unknown) date) history of unknown) cervical spinal surgery (unknown) (no (unknown) (unknown) No Known Drug (units ( unknown) date) Allergies Allergy unknown) (Verified 07/23/22 15:45) (unknown) (no (unknown) (unknown) PFSH (units (unkno wn) date) unknown) (unknown) (no (unknown) (unknown) Patient: Bijan (units (unknown) date) Leny Hutchison MR#: unknown) (unknown) (no (unknown) (unknown) 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) (no (unknown) (unknown) Primary (units (unkno wn) date) osteoarthritis of unknown) left knee (unknown) (no (unknown) (unknown) Prostate cancer (units (unknown) date) unknown) (unknown) (no (unknown) (unknown) Reason For Visit (units (unknown) date) unknown) (unknown) (no (unknown) (unknown) Signed By: (units (unk nown) date) unknown) (unknown) (no (unknown) (unknown) Smoking Status: (units (unknown) date) Never smoker unknown) (unknown) (no (unknown) (unknown) Social History (units (unknown) date) (Reviewed unknown) 07/24/22 @ 09:08 by Karuna Morse DO) (unknown) (no (unknown) (unknown) Surgical History (units (unknown) date) (Reviewed unknown) 07/24/22 @ 09:08 by Karuna Morse DO) (unknown) (no (unknown) (unknown) This note may (units ( unknown) date) have been all or unknown) partially generated using voice recognition (unknown) (no (unknown) (unknown) Tobacco Status (units (unknown) date) unknown) (unknown) (no (unknown) (unknown) Urology Office (units (unknown) date) Visit unknown) (unknown) (no (unknown) (unknown) Visit Reasons: (units (unknown) date) Discuss cancer unknown) treatment options (unknown) (no (unknown) (unknown) alcohol intake: (units (unknown) date) current unknown) (unknown) (no (unknown) (unknown) caffeine: Yes (units ( unknown) date) unknown) (unknown) (no (unknown) (unknown) have occurred. (units (unknown) date) If there are any unknown) questions, please contact the Medical Records (unknown) (no (unknown) (unknown) household (units (unkn own) date) members: spouse unknown) (unknown) (no (unknown) (unknown) leisure (units (unkno wn) date) activities: unknown) exercise (unknown) (no (unknown) (unknown) marital status: (units (unknown) date) unknown) (unknown) (no (unknown) (unknown) may occur. (units (unk nown) date) Occasional unknown) wrong-word or 'sound-alike' substitutions may have (unknown) (no (unknown) (unknown) number of (units (unkn own) date) children: 3 unknown) (unknown) (no (unknown) (unknown) occupational (units (u nknown) date) status: employed unknown) (unknown) (no (unknown) (unknown) occurred due to (units (unknown) date) the inherent unknown) limitations of voice recognition software. Please (unknown) (no (unknown) (unknown) read the note (units ( unknown) date) carefully and unknown) recognize, using context, where these substitutions (unknown) (no (unknown) (unknown) software. (units (unkn own) date) Although every unknown) effort is made to edit content, emt i/99 errors Result panel 140 (unknown) (no (unknown) (unknown) (no value) (units (unk nown) date) unknown) (unknown) (no (unknown) (unknown) 05/11/22 [Rx (units (u nknown) date) Confirmed unknown) 08/06/22] (unknown) (no (unknown) (unknown) 08/06/22 (units (unkno wn) date) unknown) (unknown) (no (unknown) (unknown) 08/06/22] (units (unkn own) date) unknown) (unknown) (no (unknown) (unknown) 02/18/22 [Rx (units (u nknown) date) Confirmed unknown) 08/06/22] (unknown) (no (unknown) (unknown) 15:25 (units (unkno wn) date) unknown) (unknown) (no (unknown) (unknown) 57 Y/O M (units (unkno wn) date) presents to unknown) clinic to discuss cancer treatment options. (unknown) (no (unknown) (unknown) Abnormal (units (unkno wn) date) prostate by unknown) palpation (unknown) (no (unknown) (unknown) Active asthma (units ( unknown) date) unknown) (unknown) (no (unknown) (unknown) Age/Sex: 57 / M (units (unknown) date) Date of Service: unknown) (unknown) (no (unknown) (unknown) Allergies (units (unkn own) date) unknown) (unknown) (no (unknown) (unknown) AUSTIN Melendez (units ( unknown) date) [id number] unknown) (unknown) (no (unknown) (unknown) Attending Dr: (units ( unknown) date) Bryce Page MD unknown) (unknown) (no (unknown) (unknown) Back pain with (units (unknown) date) history of spinal unknown) surgery (unknown) (no (unknown) (unknown) : 1965 (units (unknown) date) Acct:[id number] unknown) (unknown) (no (unknown) (unknown) Dept at (units (unkno wn) date) . unknown) (unknown) (no (unknown) (unknown) Diabetes (units (unkno wn) date) mellitus unknown) (unknown) (no (unknown) (unknown) Documented By: (units (unknown) date) Bryce Page MD unknown) 08/06/22 1517 (unknown) (no (unknown) (unknown) Draft (units (unkno wn) date) unknown) (unknown) (no (unknown) (unknown) Family History (units (unknown) date) (Reviewed unknown) 07/24/22 @ 09:08 by Karuna Morse DO) (unknown) (no (unknown) (unknown) Father (units (unkno wn) date) Hypertension unknown) (unknown) (no (unknown) (unknown) H/O cervical (units (u nknown) date) spine surgery unknown) (unknown) (no (unknown) (unknown) History of (units (unk nown) date) lumbar surgery unknown) (unknown) (no (unknown) (unknown) Hypertension (units (u nknown) date) unknown) (unknown) (no (unknown) (unknown) Intake Note: (units (u nknown) date) unknown) (unknown) (no (unknown) (unknown) Intake performed (units (unknown) date) by: unknown) Skye Cosby (unknown) (no (unknown) (unknown) Intake (units (unkno wn) date) unknown) (unknown) (no (unknown) (unknown) Intake- Clincial (units (unknown) date) Staff unknown) (unknown) (no (unknown) (unknown) [facility] (units (unknown) date) unknown) (unknown) (no (unknown) (unknown) Loc: [facility] (units (unkno wn) date) unknown) (unknown) (no (unknown) (unknown) Lower urinary (units ( unknown) date) tract symptoms unknown) (unknown) (no (unknown) (unknown) Lumbar (units (unkno wn) date) radiculopathy unknown) (unknown) (no (unknown) (unknown) [id number] (units (unk nown) date) unknown) (unknown) (no (unknown) (unknown) Medical History (units (unknown) date) (Reviewed unknown) 07/24/22 @ 09:08 by Karuna Morse DO) (unknown) (no (unknown) (unknown) Medications (units (un known) date) unknown) (unknown) (no (unknown) (unknown) Mother Cancer (units ( unknown) date) unknown) (unknown) (no (unknown) (unknown) Neck pain with (units (unknown) date) history of unknown) cervical spinal surgery (unknown) (no (unknown) (unknown) No Known Drug (units ( unknown) date) Allergies Allergy unknown) (Verified 08/06/22 15:18) (unknown) (no (unknown) (unknown) Oxygen Delivery (units (unknown) date) Method room air unknown) (unknown) (no (unknown) (unknown) PFSH (units (unkno wn) date) unknown) (unknown) (no (unknown) (unknown) Patient: Bijan (units (unknown) date) Leny Hutchison MR#: unknown) (unknown) (no (unknown) (unknown) 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) (no (unknown) (unknown) Primary (units (unkno wn) date) osteoarthritis of unknown) left knee (unknown) (no (unknown) (unknown) Prostate cancer (units (unknown) date) unknown) (unknown) (no (unknown) (unknown) Pulse 71 (units (unkno wn) date) unknown) (unknown) (no (unknown) (unknown) Pulse Oximetry (units (unknown) date) (%) 97 unknown) (unknown) (no (unknown) (unknown) Pulse Source (units (u nknown) date) Monitor unknown) (unknown) (no (unknown) (unknown) Reason For Visit (units (unknown) date) unknown) (unknown) (no (unknown) (unknown) Respiration 18 (units (unknown) date) unknown) (unknown) (no (unknown) (unknown) Signed By: (units (unk nown) date) unknown) (unknown) (no (unknown) (unknown) Smoking Status: (units (unknown) date) Never smoker unknown) (unknown) (no (unknown) (unknown) Social History (units (unknown) date) (Reviewed unknown) 07/24/22 @ 09:08 by Karuna Morse DO) (unknown) (no (unknown) (unknown) Surgical History (units (unknown) date) (Reviewed unknown) 07/24/22 @ 09:08 by Karuna Morse DO) (unknown) (no (unknown) (unknown) This note may (units ( unknown) date) have been all or unknown) partially generated using voice recognition (unknown) (no (unknown) (unknown) Tobacco Status (units (unknown) date) unknown) (unknown) (no (unknown) (unknown) Urology Office (units (unknown) date) Visit unknown) (unknown) (no (unknown) (unknown) Visit Reasons: (units (unknown) date) Discuss cancer unknown) treatment options (unknown) (no (unknown) (unknown) Vitals (units (unkno wn) date) unknown) (unknown) (no (unknown) (unknown) albuterol (units (unkn own) date) sulfate 90 unknown) mcg/actuation aerosol inhaler (Ventolin HFA) 2 puff (unknown) (no (unknown) (unknown) alcohol intake: (units (unknown) date) current unknown) (unknown) (no (unknown) (unknown) caffeine: Yes (units ( unknown) date) unknown) (unknown) (no (unknown) (unknown) celecoxib 400 mg (units (unknown) date) capsule unknown) (Celebrex) 400 mg PO DAILY 02/18/22 [History Confirmed (unknown) (no (unknown) (unknown) duloxetine (units (unk nown) date) [Cymbalta] PO unknown) 08/06/22 [History Confirmed 08/06/22] (unknown) (no (unknown) (unknown) esomeprazole (units (u nknown) date) magnesium 40 mg unknown) capsule,delayed release 40 mg PO DAILY #90 caps (unknown) (no (unknown) (unknown) gabapentin 600 (units (unknown) date) mg tablet 600 mg unknown) PO TID 07/23/22 [History Confirmed 08/06/22] (unknown) (no (unknown) (unknown) have occurred. (units (unknown) date) If there are any unknown) questions, please contact the Medical Records (unknown) (no (unknown) (unknown) household (units (unkn own) date) members: spouse unknown) (unknown) (no (unknown) (unknown) inhalation Q4-6H (units (unknown) date) PRN Allergic unknown) Reaction 11/21/20 [History Confirmed 08/06/22] (unknown) (no (unknown) (unknown) leisure (units (unkno wn) date) activities: unknown) exercise (unknown) (no (unknown) (unknown) lisinopril 10 mg (units (unknown) date) tablet 10 mg PO unknown) DAILY #90 tabs 02/18/22 [Rx Confirmed 08/06/22] (unknown) (no (unknown) (unknown) marital status: (units (unknown) date) unknown) (unknown) (no (unknown) (unknown) may occur. (units (unk nown) date) Occasional unknown) wrong-word or 'sound-alike' substitutions may have (unknown) (no (unknown) (unknown) methocarbamol (units ( unknown) date) 750 mg tablet unknown) 1,500 mg PO Q12HR #20 tabs 07/24/22 [Rx Confirmed (unknown) (no (unknown) (unknown) metoprolol (units (unkn own) date) succinate 25 mg unknown) tablet,extended release 24 hr 25 mg PO DAILY #90 tabs (unknown) (no (unknown) (unknown) number of (units (unkn own) date) children: 3 unknown) (unknown) (no (unknown) (unknown) occupational (units (u nknown) date) status: employed unknown) (unknown) (no (unknown) (unknown) occurred due to (units (unknown) date) the inherent unknown) limitations of voice recognition software. Please (unknown) (no (unknown) (unknown) read the note (units ( unknown) date) carefully and unknown) recognize, using context, where these substitutions (unknown) (no (unknown) (unknown) software. (units (unkn own) date) Although every unknown) effort is made to edit content, emt i/99 errors Result panel 141 (unknown) (no (unknown) (unknown) (no value) (units (unk nown) date) unknown) (unknown) (no (unknown) (unknown) (1) Prostate (units (u nknown) date) cancer: unknown) (unknown) (no (unknown) (unknown) (2) Elevated (units (u nknown) date) PSA, less than 10 unknown) ng/ml: (unknown) (no (unknown) (unknown) (3) Morbid (units (unk nown) date) obesity: unknown) (unknown) (no (unknown) (unknown) (4) Lower (units (unkn own) date) urinary tract unknown) symptoms: (unknown) (no (unknown) (unknown) 05/11/22 [Rx (units (u nknown) date) Confirmed unknown) 08/06/22] (unknown) (no (unknown) (unknown) 08/06/22 1629 (units ( unknown) date) unknown) (unknown) (no (unknown) (unknown) 08/06/22 (units (unkno wn) date) unknown) (unknown) (no (unknown) (unknown) 08/06/22] (units (unkn own) date) unknown) (unknown) (no (unknown) (unknown) 02/18/22 [Rx (units (u nknown) date) Confirmed unknown) 08/06/22] (unknown) (no (unknown) (unknown) 15:25 (units (unkno wn) date) unknown) (unknown) (no (unknown) (unknown) 57 Y/O M (units (unkno wn) date) presents to unknown) clinic to discuss cancer treatment options. (unknown) (no (unknown) (unknown) Abnormal (units (unkno wn) date) prostate by unknown) palpation (unknown) (no (unknown) (unknown) Active asthma (units ( unknown) date) unknown) (unknown) (no (unknown) (unknown) Add'l Complaint: (units (unknown) date) unknown) (unknown) (no (unknown) (unknown) Age/Sex: 57 / M (units (unknown) date) Date of Service: unknown) (unknown) (no (unknown) (unknown) Allergies (units (unkn own) date) unknown) (unknown) (no (unknown) (unknown) [place], [place] (units ( unknown) date) [id number] unknown) (unknown) (no (unknown) (unknown) Assessment + (units (u nknown) date) Plan unknown) (unknown) (no (unknown) (unknown) Assessment and (units (unknown) date) plan: Prostate unknown) cancer plan would be to start Casodex today the (unknown) (no (unknown) (unknown) Attending Dr: (units ( unknown) date) Bryce Page MD unknown) (unknown) (no (unknown) (unknown) Back pain with (units (unknown) date) history of spinal unknown) surgery (unknown) (no (unknown) (unknown) C61 - Malignant (units (unknown) date) neoplasm of unknown) prostate (unknown) (no (unknown) (unknown) Chief Complaint (units (unknown) date) unknown) (unknown) (no (unknown) (unknown) Chief Complaint: (units (unknown) date) Prostate cancer unknown) (unknown) (no (unknown) (unknown) Code(s): (units (unkno wn) date) unknown) (unknown) (no (unknown) (unknown) Confirmed (units (unkn own) date) 08/06/22] unknown) (unknown) (no (unknown) (unknown) : 1965 (units (unknown) date) Acct:[id number] unknown) (unknown) (no (unknown) (unknown) Dept at (units (unkno wn) date) . unknown) (unknown) (no (unknown) (unknown) Details: (units (unkno wn) date) unknown) (unknown) (no (unknown) (unknown) Diabetes (units (unkno wn) date) mellitus unknown) (unknown) (no (unknown) (unknown) Documented By: (units (unknown) date) Bryce Page MD unknown) 08/06/22 1517 (unknown) (no (unknown) (unknown) E66.01 - Morbid (units (unknown) date) (severe) obesity unknown) due to excess calories (unknown) (no (unknown) (unknown) Elevated PSA (units (u nknown) date) come abnormal unknown) prostate by palpation, lower urinary tract symptoms, (unknown) (no (unknown) (unknown) Family History (units (unknown) date) (Reviewed unknown) 07/24/22 @ 09:08 by Karuna Morse DO) (unknown) (no (unknown) (unknown) Father (units (unkno wn) date) Hypertension unknown) (unknown) (no (unknown) (unknown) H/O cervical (units (u nknown) date) spine surgery unknown) (unknown) (no (unknown) (unknown) HPI (units (unkno wn) date) unknown) (unknown) (no (unknown) (unknown) History of (units (unk nown) date) lumbar surgery unknown) (unknown) (no (unknown) (unknown) Hypertension (units (u nknown) date) unknown) (unknown) (no (unknown) (unknown) Intake Note: (units (u nknown) date) unknown) (unknown) (no (unknown) (unknown) Intake performed (units (unknown) date) by: unknown) Skye Cosby (unknown) (no (unknown) (unknown) Intake (units (unkno wn) date) unknown) (unknown) (no (unknown) (unknown) Intake- Clincial (units (unknown) date) Staff unknown) (unknown) (no (unknown) (unknown) [facility] (units (unknown) date) unknown) (unknown) (no (unknown) (unknown) Loc: [facility] (units (unkno wn) date) unknown) (unknown) (no (unknown) (unknown) Lower urinary (units ( unknown) date) tract symptoms unknown) (unknown) (no (unknown) (unknown) Lumbar (units (unkno wn) date) radiculopathy unknown) (unknown) (no (unknown) (unknown) [id number] (units (unk nown) date) unknown) (unknown) (no (unknown) (unknown) Medical History (units (unknown) date) (Reviewed unknown) 07/24/22 @ 09:08 by Karuna Morse DO) (unknown) (no (unknown) (unknown) Medications (units (un known) date) unknown) (unknown) (no (unknown) (unknown) Medications: (units (u nknown) date) unknown) (unknown) (no (unknown) (unknown) Mother Cancer (units ( unknown) date) unknown) (unknown) (no (unknown) (unknown) Neck pain with (units (unknown) date) history of unknown) cervical spinal surgery (unknown) (no (unknown) (unknown) New (units (unkno wn) date) unknown) (unknown) (no (unknown) (unknown) No Known Drug (units ( unknown) date) Allergies Allergy unknown) (Verified 08/06/22 15:18) (unknown) (no (unknown) (unknown) Orders (units (unkno wn) date) unknown) (unknown) (no (unknown) (unknown) Orders: (units (unkno wn) date) unknown) (unknown) (no (unknown) (unknown) Oxygen Delivery (units (unknown) date) Method room air unknown) (unknown) (no (unknown) (unknown) PFSH (units (unkno wn) date) unknown) (unknown) (no (unknown) (unknown) Patient: Edlund (units (unknown) date) Leny MR#: unknown) (unknown) (no (unknown) (unknown) Plan (units (unkno wn) date) unknown) (unknown) (no (unknown) (unknown) 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) (no (unknown) (unknown) Primary (units (unkno wn) date) osteoarthritis of unknown) left knee (unknown) (no (unknown) (unknown) Prostate (units (unkno wn) date) Specific Antigen unknown) 8 Weeks C61 - Malignant neoplasm of prostate (unknown) (no (unknown) (unknown) Prostate cancer (units (unknown) date) unknown) (unknown) (no (unknown) (unknown) Pulse 71 (units (unkno wn) date) unknown) (unknown) (no (unknown) (unknown) Pulse Oximetry (units (unknown) date) (%) 97 unknown) (unknown) (no (unknown) (unknown) Pulse Source (units (u nknown) date) Monitor unknown) (unknown) (no (unknown) (unknown) R39.9 - (units (unkno wn) date) Unspecified unknown) symptoms and signs involving the genitourinary system (unknown) (no (unknown) (unknown) R97.20 - (units (unkno wn) date) Elevated prostate unknown) specific antigen [PSA] (unknown) (no (unknown) (unknown) Reason For Visit (units (unknown) date) unknown) (unknown) (no (unknown) (unknown) Referral (units (unkno wn) date) Oncology C61 - unknown) Malignant neoplasm of prostate (unknown) (no (unknown) (unknown) Referrals (units (unkn own) date) unknown) (unknown) (no (unknown) (unknown) Respiration 18 (units (unknown) date) unknown) (unknown) (no (unknown) (unknown) Signed By: (units (unk nown) date) <Electronically unknown) signed by Bryce Page MD> (unknown) (no (unknown) (unknown) Signed (units (unkno wn) date) unknown) (unknown) (no (unknown) (unknown) Smoking Status: (units (unknown) date) Never smoker unknown) (unknown) (no (unknown) (unknown) Social History (units (unknown) date) (Reviewed unknown) 07/24/22 @ 09:08 by Karuna Morse DO) (unknown) (no (unknown) (unknown) Status: Acute (units ( unknown) date) unknown) (unknown) (no (unknown) (unknown) Status: Chronic (units (unknown) date) unknown) (unknown) (no (unknown) (unknown) Surgical History (units (unknown) date) (Reviewed unknown) 07/24/22 @ 09:08 by Karuna Morse DO) (unknown) (no (unknown) (unknown) This 57-year-old (units (unknown) date) male returns to unknown) urology clinic in follow-up of his (unknown) (no (unknown) (unknown) This note may (units ( unknown) date) have been all or unknown) partially generated using voice recognition (unknown) (no (unknown) (unknown) Tobacco Status (units (unknown) date) unknown) (unknown) (no (unknown) (unknown) Urology Office (units (unknown) date) Visit unknown) (unknown) (no (unknown) (unknown) Visit Reasons: (units (unknown) date) Discuss cancer unknown) treatment options (unknown) (no (unknown) (unknown) Vitals (units (unkno wn) date) unknown) (unknown) (no (unknown) (unknown) adenocarcinoma (units (unknown) date) of the prostate. unknown) He is undergone a bone scan and CT scan which (unknown) (no (unknown) (unknown) albuterol (units (unkn own) date) sulfate 90 unknown) mcg/actuation aerosol inhaler (Ventolin HFA) 2 puff (unknown) (no (unknown) (unknown) alcohol intake: (units (unknown) date) current unknown) (unknown) (no (unknown) (unknown) at back surgery (units (unknown) date) and would like to unknown) get this done as quickly as possible discussed (unknown) (no (unknown) (unknown) back. These have (units (unknown) date) been gone over unknown) with the patient previously patient is looking (unknown) (no (unknown) (unknown) bicalutamide (units (u nknown) date) (Casodex) 50 mg unknown) PO DAILY 30 tabs 0RF C61 - Malignant neoplasm of (unknown) (no (unknown) (unknown) bicalutamide 50 (units (unknown) date) mg tablet unknown) (Casodex) 50 mg PO DAILY #30 tabs 08/06/22 [Rx (unknown) (no (unknown) (unknown) caffeine: Yes (units ( unknown) date) unknown) (unknown) (no (unknown) (unknown) celecoxib 400 mg (units (unknown) date) capsule unknown) (Celebrex) 400 mg PO DAILY 02/18/22 [History Confirmed (unknown) (no (unknown) (unknown) duloxetine (units (unk nown) date) [Cymbalta] PO unknown) 08/06/22 [History Confirmed 08/06/22] (unknown) (no (unknown) (unknown) esomeprazole (units (u nknown) date) magnesium 40 mg unknown) capsule,delayed release 40 mg PO DAILY #90 caps (unknown) (no (unknown) (unknown) for outcomes (units (u nknown) date) that this is the unknown) best path for the patient. Total time today 43 (unknown) (no (unknown) (unknown) gabapentin 600 (units (unknown) date) mg tablet 600 mg unknown) PO TID 07/23/22 [History Confirmed 08/06/22] (unknown) (no (unknown) (unknown) have occurred. (units (unknown) date) If there are any unknown) questions, please contact the Medical Records (unknown) (no (unknown) (unknown) household (units (unkn own) date) members: spouse unknown) (unknown) (no (unknown) (unknown) inhalation Q4-6H (units (unknown) date) PRN Allergic unknown) Reaction 11/21/20 [History Confirmed 08/06/22] (unknown) (no (unknown) (unknown) leisure (units (unkno wn) date) activities: unknown) exercise (unknown) (no (unknown) (unknown) lisinopril 10 mg (units (unknown) date) tablet 10 mg PO unknown) DAILY #90 tabs 02/18/22 [Rx Confirmed 08/06/22] (unknown) (no (unknown) (unknown) low back pain, (units (unknown) date) morbid obesity unknown) (unknown) (no (unknown) (unknown) marital status: (units (unknown) date) unknown) (unknown) (no (unknown) (unknown) may occur. (units (unk nown) date) Occasional unknown) wrong-word or 'sound-alike' substitutions may have (unknown) (no (unknown) (unknown) methocarbamol (units ( unknown) date) 750 mg tablet unknown) 1,500 mg PO Q12HR #20 tabs 07/24/22 [Rx Confirmed (unknown) (no (unknown) (unknown) metoprolol (units (unkn own) date) succinate 25 mg unknown) tablet,extended release 24 hr 25 mg PO DAILY #90 tabs (unknown) (no (unknown) (unknown) minutes. See (units (u nknown) date) plan below unknown) (unknown) (no (unknown) (unknown) number of (units (unkn own) date) children: 3 unknown) (unknown) (no (unknown) (unknown) occupational (units (u nknown) date) status: employed unknown) (unknown) (no (unknown) (unknown) occurred due to (units (unknown) date) the inherent unknown) limitations of voice recognition software. Please (unknown) (no (unknown) (unknown) oncology (units (unkno wn) date) consultation and unknown) then looking forward to moving forward with radiation (unknown) (no (unknown) (unknown) patient return to (units (unknown) date) clinic in 2 weeks unknown) for his Eligard in the interim radiation (unknown) (no (unknown) (unknown) period of (units (unkn own) date) hormonal ablation unknown) and would like to go for consultation for radiation (unknown) (no (unknown) (unknown) prostate (units (unkno wn) date) unknown) (unknown) (no (unknown) (unknown) questions were (units (unknown) date) answered and at unknown) the end of the day they have settled on a brief (unknown) (no (unknown) (unknown) read the note (units ( unknown) date) carefully and unknown) recognize, using context, where these substitutions (unknown) (no (unknown) (unknown) shows no (units (unkno wn) date) evidence of unknown) metastatic disease. Does show degenerative changes in his (unknown) (no (unknown) (unknown) software. (units (unkn own) date) Although every unknown) effort is made to edit content, emt i/99 errors (unknown) (no (unknown) (unknown) surgical (units (unkno wn) date) intervention, unknown) radiation therapy, hormonal ablation, immunotherapy, (unknown) (no (unknown) (unknown) that his (units (unkno wn) date) therapies can be unknown) tailored to what he needs. (unknown) (no (unknown) (unknown) the radiation (units ( unknown) date) therapy folks unknown) about his situation how we would like to proceed so (unknown) (no (unknown) (unknown) therapy. I think (units (unknown) date) given the unknown) patient's situation quality of life concerns hope (unknown) (no (unknown) (unknown) therapy. Patient (units (unknown) date) also has concerns unknown) about his back and I advised him to inform (unknown) (no (unknown) (unknown) timing, (units (unkno wn) date) logistics, hope unknown) for outcomes, quality of life concerns. They had many (unknown) (no (unknown) (unknown) with him his (units (u nknown) date) current unknown) situation, the therapeutic options available to include Social History date description facility 2022-06-22 00:00 Never smoked tobacco (finding) [facility] 2022-07-16 00:00 Never smoked tobacco (finding) [facility] 2022-07-23 00:00 Never smoked tobacco (finding) [facility] 2022-07-24 00:00 Never smoked tobacco (finding) [facility] 2022-08-06 00:00 Never smoked tobacco (finding) [facility] Vital Signs date measurement value units 2022-06-22 00:00 BP_diastolic 90 mmHg 2022-06-22 00:00 BP_systolic 142 mmHg 2022-06-22 00:00 heart_rate 96 /min 2022-06-22 00:00 o2_saturation 99 % 2022-06-22 00:00 respiration_rate 16 /min 2022-07-16 00:00 BP_diastolic 83 mmHg 2022-07-16 00:00 BP_systolic 137 mmHg 2022-07-16 00:00 heart_rate 65 /min 2022-07-16 00:00 o2_saturation 99 % 2022-07-16 00:00 respiration_rate 16 /min 2022-07-23 00:00 BP_diastolic 77 mmHg 2022-07-23 00:00 BP_systolic 113 mmHg 2022-07-23 00:00 heart_rate 78 /min 2022-07-23 00:00 height_metric 190.5 cm 2022-07-23 00:00 height_standard 75 in 2022-07-23 00:00 o2_saturation 96 % 2022-07-24 00:00 BP_diastolic 70 mmHg 2022-07-24 00:00 BP_systolic 133 mmHg 2022-07-24 00:00 heart_rate 80 /min 2022-07-24 00:00 height_metric 190.5 cm 2022-07-24 00:00 height_standard 75 in 2022-07-24 00:00 o2_saturation 96 % 2022-07-24 00:00 respiration_rate 18 /min 2022-07-24 00:00 temperature_metric 36.67 C 2022-07-24 00:00 temperature_standard 98 F 2022-07-24 00:00 weight_metric 145.14 kg 2022-07-24 00:00 weight_standard 319.98 lb 2022-08-06 00:00 heart_rate 71 /min 2022-08-06 00:00 o2_saturation 97 % 2022-08-06 00:00 respiration_rate 18 /min
[2022-08-15 13:38] LABS: BILIRUBIN,URINE NEGATIVE (NEGATIVE); GLUCOSE, URINE (UA) NEGATIVE (NEGATIVE); KETONES,URINE (UA) NEGATIVE (NEGATIVE); LEUKOCYTE ESTERASE, URINE NEGATIVE (NEGATIVE); NITRITE,URINE NEGATIVE (NEGATIVE); OCCULT BLOOD,URINE NEGATIVE (NEGATIVE); PROTEIN,URINE NEGATIVE (NEGATIVE); UROBILINOGEN,URINE 0.2 (NORMAL) E.U./dL (NORMAL)
[2022-08-15 13:39] LABS: CLARITY,URINE CLEAR (CLEAR)
--- NOTE | 2022-08-15 14:04 | ED Physician Documentation ---
PD HPI MALE - Stated complaint Stated Complaint: MALE - Chief complaint Chief Complaint: Abd Pain - History obtained from History obtained from: Patient - Additional information Additional information: Patient is a 57-year-old male with a history of prostate cancer presenting for evaluation of difficulty urinating for the past week. Patient reports having dribbling with his urine which has progressively become worse and this morning he is not able to urinate at all. He reports suprapubic discomfort. He denies fever, blood in his urine, Flank pain, dysuria.He is scheduled to start treatme nt for his cancer on Wednesday. Review of Systems Constitutional: denies: Fever Cardiac: denies: Chest pain / pressure Respiratory: denies: Dyspnea GI: denies: Vomiting : reports: Unable to Void. denies: Hematuria Musculoskeletal: denies: Back pain Neurologic: denies: Headache PD PAST MEDICAL HISTORY - Past Medical History Past Medical History: Yes Other Past Medical History: Prostate Ca - Past Surgical History Past Surgical History: No - Present Medications Home Medications: Ambulatory Orders Medication Instructions Recorded Confirmed Celecoxib [Celebrex] 1 cap PO DAILY 06/29/22 06/29/22 Esomeprazole Magnesium [Nexium] 1 cap PO DAILY 06/29/22 06/29/22 Gabapentin [Neurontin] 1 tab PO TID 06/29/22 06/29/22 Lisinopril [Zestril] 1 tab PO DAILY 06/29/22 06/29/22 Metoprolol Succinate [Toprol Xl] 1 tab PO DAILY 06/29/22 06/29/22 Tamsulosin [Flomax] 0.4 mg PO DAILY #14 cap 08/15/22 - Allergies Allergies/Adverse Reactions: Allergies Allergy/AdvReac Type Severity Reaction Status Date / Time No Known Drug Allergies Allergy Verified 08/15/22 12:24 - Social History Does the pt smoke?: No Smoking Status: Never smoker Does the pt drink ETOH?: No Does the pt have substance abuse?: No - Immunizations Immunizations are current?: Yes PD ED PE NORMAL - General General: Alert and oriented X 3, No acute distress, Well developed/nourished - HEENT HEENT: Atraumatic - Neck Neck: Supple, no meningeal sign - Cardiac Cardiac: RRR - Respiratory Respiratory: No respiratory distress, Clear bilaterally - Abdomen Abdomen: Soft, Non tender, Non distended, Other (Mild suprapubic tenderness, improved after catheter placed) - Male Male : Other (Clear yellow urine in catheter) - Neuro Neuro: Normal speech Results - Vitals Vitals: Vital Signs - 24 hr 08/15/22 08/15/22 12:21 14:43 Temperature 36.7 C Heart Rate 79 80 Respiratory 18 18 Rate Blood Pressure 176/103 H 160/89 H O2 Saturation 98 100 Oxygen O2 Source Room air - Labs Labs: Laboratory Tests 08/15/22 13:31 Urine Color YELLOW Urine Clarity CLEAR Urine pH 6.0 Ur Specific [place] 1.010 Urine Protein NEGATIVE Urine Glucose (UA) NEGATIVE Urine Ketones NEGATIVE Urine Occult Blood NEGATIVE Urine Nitrite NEGATIVE Urine Bilirubin NEGATIVE Urine Urobilinogen 0.2 (NORMAL) Ur Leukocyte Esterase NEGATIVE Ur Microscopic Review NOT INDICATED Urine Culture Comments NOT INDICATED PD Medical Decision Making - ED course Complexity details: reviewed results, re-evaluated patient, d/w patient ED course: Patient presenting for evaluation of difficulty with urination. He has a history of prostate cancer and is awaiting to start treatment. His vital signs are stable. He had greater than a liter on bladder scan. A catheter was placed and he had significant improvement in his symptoms. Urine analysis is negative for signs of infection. Patient will be started on Flomax. He will have close follow-up with his urologist which is through [facility].He is advised on concerning symptoms to return for. Departure - Departure Disposition: 01 Home, Self Care Clinical Impression: Urinary retention Condition: Stable Instructions: ED Catheter Care [place] Prescriptions: Tamsulosin [Flomax] 0.4 mg PO DAILY #14 cap Comments: Your bladder Was not able to empty and you are holding onto too much urine causing your pain. We have placed a catheter which should help with this. I would recommend calling your urologist on Wednesday for close follow-up to determine when you should have your catheter removed. Your urine results do not show us infection at this time. If it anytime you have any difficulties with your catheter such as it not draining or noticing a large amount of blood in it you should return to the emergency department. Similarly if you develop fever or any worsening pain or have any new concerns please return to the emergency department. Discharge Date/Time: 08/15/22 14:47
[2022-08-15 14:43] VITALS: BP 160/89
== END 2022-08-15 14:47 | disposition home or self-care (01) ==
LOC: ED 12:06
DX: R33.9 Retention of urine, unspecified (principal); C61 Malignant neoplasm of prostate
CPT/HCPCS: 51702; 81001; 81003; 87086; 99283; 99284

== ENCOUNTER 2022-10-07 08:18 | Outpatient (CLI) | payer OTHER ==
--- NOTE | 2022-10-07 08:42 | SLEEP CARE CONSULTATION ---
Information from patient questionnaire entered by Peral Valverde. I have reviewed and concur with the information entered by Perla Valverde. This document represents the service I personally performed and the decisions made by , Donna Valenzuela ARNP. History of Present Illness Service Date and Time: 10/07/2022817 Previous diagnosis: Moderate, Obstructive Sleep Apnea-Hypopnea Syndrome AHI: 20 (in 2014) Reason for follow up: first compliance after device update Equipment type: CPAP (RESMED Airsense 11, s/u 06/2022) Equipment obtained from: Other ([facility], got supplies) Mask style: Nasal Backup mask available: No (will need to keep old mask when replaced) Last cushion change: 3 weeks Prior sleep studies: Yes Year and Where: 2016 [facility] HPI additional information: LENY SABILLON was diagnosed to have moderate, AHI 20, obstructive sleep apnea- hypopnea syndrome and returned today for CPAP therapy first compliance after updating device follow-up. Sleep Study - Results Prior sleep studies: Yes Year and Where: 2016 [facility] CPAP Compliance Data - Data Reviewed with Patient Average duration of nightly device use: 6 HRS 22 MINS Compliance rate %: 97 (09/06/22-10/05/22; 60/60 days used) Current pressure setting (cmH2O): 7-14 Average residual AHI: 1.4 Central apnea: 0 Obstructive apnea: 1 Hypopnea: 0.3 Average large leak: 0.3 LPM Subjective Patient concerns: denies: aerophagia, mask discomfort, air blowing in eyes, mask leak noise, condensation in mask/hose, nasal congestion, dry mouth, nose, throat, epistaxis Observed to snore while using device: No Current pressure setting perceived as: comfortable On therapy, patient: reports: sleeping better, awakening more refreshed, being more awake and alert during the day, more rested overall. denies: drowsiness while driving Initial [place] Sleepiness Scale score: 11 (2-28-23) Current [place] Sleepiness Scale score: 13 Allergies and Home Medications Known drug allergies: No Drug allergies reviewed: Yes Home medication list reviewed: Yes (no changes) Allergy and home medication list: Allergies No Known Drug Allergies Allergy (Verified 10/06/22 21:27) Review of Systems Review of systems same as previous: No (early June, Prostate Cancer) Physical Exam Vital signs obtained and entered by: Donna Jones NP Blood Pressure: 152/85 (stressed/ meds taken 1.5 hrs earlier) Cuff size: wrist (right) Heart Rate: 68 O2 Saturation: 98 Height: 6 ft 3 in Weight: 316 lb Body Mass Index: 39.4 BMI Classification: Obese Impression and Plan 1. Obstructive Sleep Apnea-Hypopnea Syndrome, moderate, with good treatment compliance and good apnea control. On CPAP therapy, the patient has better sleep quality and is more rested overall. Patient has been diagnosed with prostate cancer and they are preparing to have him go through surgery. He has lost about 20 pounds and is trying to lose more before he goes through back surgery later this summer. Patient has significant improvement of their sleep apnea and is satisfied with current CPAP therapy. Patient denies problems with oral dryness, nasal congestion, epistaxis, skin irritation or aerophagia. Patient's apnea severity and rationale for treatment to reduce apnea, improve sleep quality and reduce cardiovascular and cerebrovascular events was reviewed. I also reviewed the benefit of consistent device use of CPAP for hypertension, gastric reflux and asthma. 2. Obesity, unspecified. Currently patients BMI is 39.4. Is seeing someone to help him lose weight, he has lost 20 pounds so far with meal changes. Obesity increases the risk of apnea, CPAP pressure requirements and overall health risks especially cardiovascular and diabetes. Thus patient is advised to continue to try to lose weight. * Continue auto CPAP pressure at 7-14 cmH2O * Notify me if snoring with mask or feeling that the pressure is too much or too little * Attempt to lose weight * Call this office if any problems using CPAP * Return for follow up in 1 year, or sooner if concerns arise Counseling Topics: Spare mask, Weight loss health impact Visit Type: In Office Time Spent with Patient (minutes): 20 Provider Statement: I spent 100% of the Face to Face Visit with the patient with greater than 50% spent counseling the patient and coordination of care.
[2022-10-07 08:46] VITALS: BP 152/85
== END 2022-10-07 08:19 | disposition home or self-care (01) ==
LOC: SC 08:18
PROVIDERS: ATTEND Nurse Practitioner Family
DX: G47.33 Obstructive sleep apnea (adult) (pediatric) (principal); E66.9 Obesity, unspecified; Z68.39 Body mass index [BMI] 39.0-39.9, adult
CPT/HCPCS: 99212; 99213

== ENCOUNTER 2022-12-05 07:11 | Emergency (ER) | payer OTHER ==
[2022-12-05 07:57] VITALS: BP 178/110; O2SAT 97
--- NOTE | 2022-12-05 07:58 | ED Physician Documentation ---
PD HPI BACK PAIN - Stated complaint Stated Complaint: BACK AND LEG PX - Chief complaint Chief Complaint: Back Pain - History obtained from History obtained from: Patient - Additional information Additional information: Patient is a 57-year-old presenting for evaluation of low back pain that radiates to the right leg that has been ongoing for weeks but patient reports that this has been an issue for him for years just worsening over the past several weeks. He was planning to have a back procedure done but that got delayed it due to a diagnosis of prostate cancer several months ago. He did have a prostatectomy and is awaiting radiation therapy. He reports recently moving which seems to have worsened his back pain. He did have some leftover hydrocodone from prostate surgery which she states was not helping. He has also tried lidocaine patches. He denies fevers, blood thinner use, is not diabetic, IV drug use. He denies loss of bowel or bladder control. He denies saddle anesthesia.He has an appointment with Dr. Strickland in [facility] on Wednesday. Review of Systems Constitutional: denies: Fever Cardiac: denies: Chest pain / pressure Respiratory: denies: Dyspnea GI: denies: Abdominal Pain, Vomiting Musculoskeletal: reports: Back pain Neurologic: denies: Headache PD PAST MEDICAL HISTORY - Past Medical History Past Medical History: Yes : Other Musculoskeletal: Chronic back pain Other Past Medical History: prostate cancer - Past Surgical History Past Surgical History: No - Present Medications Home Medications: Ambulatory Orders Medication Instructions Recorded Confirmed Celecoxib [Celebrex] 1 cap PO DAILY 06/29/22 12/05/22 Esomeprazole Magnesium [Nexium] 1 cap PO DAILY 06/29/22 12/05/22 Gabapentin [Neurontin] 1 tab PO TID 06/29/22 12/05/22 Lisinopril [Zestril] 1 tab PO DAILY 06/29/22 12/05/22 Metoprolol Succinate [Toprol Xl] 1 tab PO DAILY 06/29/22 12/05/22 Tamsulosin [Flomax] 0.4 mg PO DAILY #14 cap 08/15/22 12/05/22 Cyclobenzaprine [Flexeril] 10 mg PO TID PRN #20 tablet 12/05/22 DULoxetine [Cymbalta] 60 mg PO DAILY 12/05/22 12/05/22 Lidocaine Patch 5% [Lidoderm Patch] 1 patch TOP DAILY PRN #10 patch 12/05/22 Oxycodone HCl/Acetaminophen 1 - 2 each PO Q6H PRN #14 tablet 12/05/22 [Percocet 5-325 mg Tablet] - Allergies Allergies/Adverse Reactions: Allergies Allergy/AdvReac Type Severity Reaction Status Date / Time No Known Drug Allergies Allergy Verified 12/05/22 07:25 - Social History Does the pt smoke?: No Smoking Status: Never smoker Does the pt drink ETOH?: No Does the pt have substance abuse?: No - Immunizations Immunizations are current?: Yes PD ED PE NORMAL - General General: Alert and oriented X 3, No acute distress, Well developed/nourished - HEENT HEENT: Atraumatic, Moist mucous membranes, Pharynx benign - Neck Neck: Supple, no meningeal sign - Cardiac Cardiac: RRR, No murmur, Strong equal pulses - Respiratory Respiratory: No respiratory distress, Clear bilaterally - Abdomen Abdomen: Soft, Non tender, Non distended - Back Back: No spinal TTP - Derm Derm: Warm and dry - Extremities Extremities: Normal ROM s pain, Other (Normal strength in bilateral hip flexion, knee extension and flexion, ankle dorsiflexion and plantarflexion; Symmetric lower extremity reflexes ) - Neuro Neuro: Alert and oriented X 3, No motor deficit, No sensory deficit, Normal speech, Other (Steady unassisted gait) Results - Vitals Vitals: Vital Signs - 24 hr 12/05/22 12/05/22 07:20 07:49 Temperature 37.3 C Heart Rate 78 73 Respiratory 20 20 Rate Blood Pressure 181/106 H 178/110 H O2 Saturation 100 97 Oxygen O2 Source Room air PD Medical Decision Making - ED course Complexity details: reviewed results, re-evaluated patient, d/w patient ED course: Patient is a 57-year-old male with acute on chronic low back pain. His neuro exam is normal. He has no red flag signs or symptoms in regards to his back pain and this appears to be a chronic issue with gradual worsening. He is ambulating without any difficulty. He has no abdominal symptoms. No fever. No history of IV drug use and he is not diabetic. He is not on blood thinners. F eel that epidural abscess or hematoma would be very low. Discussed options for treatment to include pain medication as well as a muscle relaxer which she is agreeable to. Patient has an upcoming appointment with spine surgeon this week and was encouraged to keep this appointment. Patient counseled on concerning symptoms to return for. Departure - Departure Disposition: 01 Home, Self Care Clinical Impression: Acute exacerbation of chronic low back pain Condition: Stable Instructions: ED Neck Back Pain General Follow-Up: Bryce Oconnell MD [Physician No Access] - Prescriptions: Cyclobenzaprine [Flexeril] 10 mg PO TID PRN #20 tablet PRN Reason: Spasms Lidocaine Patch 5% [Lidoderm Patch] 1 patch TOP DAILY PRN #10 patch PRN Reason: pain Oxycodone HCl/Acetaminophen [Percocet 5-325 mg Tablet] 1 - 2 each PO Q6H PRN #14 tablet PRN Reason: pain Comments: I have sent a few prescriptions to help with the exacerbation of your back pain to [facility] in [place]. This includes a muscle relaxer called cyclobenzaprine and a pain medication called oxycodone acetaminophen. Both of these medications can be sedating so I would recommend not taking them at the same time. I would recommend keeping your appointment on Wednesday for follow-up with Dr. Strickland. If at anytime you develop worsening symptoms such as trouble controlling your bowel or bladder, fever, weakness in your legs or any new concerns please return to the emergency department. I am prescribing a short course of narcotic pain medication for you. These are potentially dangerous and addictive medications that should be used carefully. These medications may constipate you. Take an ywwr-sgi-[id number] stool softener (docusate) twice daily with plenty of water while taking these medications. If you go 24 hours without a bowel movement, take [id number] miralax, per package instructions. Do not drink or drive while taking these medications. If you received narcotic or sedating medications while in the emergency department, do not drive for 24 hours. Store this medication in a safe, secure place and out of reach of children. It is a violation of federal law to give or sell this medication to another person or to use in a manner other than prescribed. The ED will not refill narcotic prescriptions, including prescriptions lost or stolen. To dispose of unwanted medications: 1. [facility] [address] in [place] has a medication drop box. They accept prescription medications (in pill form) Wednesday through Wednesday 9:00 a.m. to 5:00 p.m. 2. The [facility] [employer] accepts prescription medications (in pill form only) for disposal year round. Call for more information. 3. Contact the [facility] for the next [facility] sponsored prescription drug collection event. , [phone], or [phone]; Note that many narcotic pain relievers also contain Tylenol/acetaminophen. Please ensure that your total dose of acetaminophen from all sources does not exceed 3 g (3000 mg) per day. Discharge Date/Time: 12/05/22 08:23
[2022-12-05] MEDS ORDERED: KETOROLAC 30 MG/ML VIAL IM STA (08:01)
[2022-12-05] MEDS ORDERED: LIDOCAINE PATCH 5% TOP STA (08:02)
== END 2022-12-05 08:23 | disposition home or self-care (01) ==
LOC: ED 07:11
DX: M54.50 Low back pain, unspecified (principal); G89.29 Other chronic pain
CPT/HCPCS: 96372; 99283; 99284; A9270